=== PATIENT | female | born 1995 | race Caucasian/White ===

== ENCOUNTER 2020-06-17 22:38 | Emergency (ER) | payer SELFPAY ==
--- NOTE | ~2020-06-17 | XR_ITS ---
EXAMINATION: XR chest 2V DATE: 06/17/2020 23:34 INDICATION: Hemoptysis. Left upper chest pain with cough. TECHNIQUE: PA and lateral views of the chest were obtained. COMPARISON: Chest radiograph dated 04/18/2015 FINDINGS: The lungs remain clear with no focal airspace opacities, pulmonary edema, pleural effusion or pneumot horax. The cardiomediastinal silhouette is normal. Visualized bones and soft tissues are unremarkable . IMPRESSION: 1. Normal chest radiograph. Reviewed, dictated and finalized at location A. IMPRESSION: 1. Normal chest radiograph.
[2020-06-17 23:00] VITALS: BP 146/73; PULSE 79; RESP 18; TEMP 37.1; O2SAT 98
--- NOTE | 2020-06-17 23:01 | ED.GENADULT ---
HPI - General Adult General Chief complaint: Upper Respiratory Infection Stated complaint: coughing up blood Source: patient Mode of arrival: ambulatory Limitations: no limitations History of Present Illness HPI narrative: Manuela is a 24F with a history of multiple episodes of costochondritis presented to the ED with hemoptysis. She had had diarrhea for a week (unknown if there was any blood) but today she started coughing. On several episodes she coughed up some blood (only a few cc when she was asked to quantify it). She reports that she feels like she is coughing something out of her throat rather than from deep in her lungs. She also admits a backache but no fevers, diffuse body aches, CP or dyspnea. She does report that she has been around a friend that has been living with 2 individuals that tested positive for COVID. No personal or family history of bleeding disorders. Related Data Home Medications Medication Instructions Recorded Confirmed No Home Medications 06/17/20 06/17/20 Allergies Allergy/AdvReac Type Severity Reaction Status Date / Time fluconazole Allergy Unknown Unknown Verified 06/18/20 00:00 Review of Systems Constitutional: Constitutional: Reports as per HPI, Denies chills and Denies fever(s) Eyes: Eyes: Reports no additional eye complaints ENT: Reports system reviewed and no additional complaints, except as documented Cardiovascular: Cardiovascular: Reports no additional cardiovascular complaints Respiratory: Respiratory: Reports as per HPI Gastrointestinal: Gastrointestinal: Reports as per HPI Genitourinary: Genitourinary: Reports no additional female genitourinary complaints Musculoskeletal: Musculoskeletal: Reports no additional musculoskeletal complaints Integumentary/Breasts: Skin/Breast: Reports system reviewed and no additional complaints, except as docu Neurologic: Reports system reviewed and no additional complaints, except as documented Psychiatric: Psychiatric: Reports no additional psychiatric complaints Endocrine: Endocrine: Reports no additional endocrine complaints Hematologic/Lymphatic: Hematologic/Lymphatic: Reports as per HPI Allergic/Immunologic: Allergic/Immunologic: Reports no additional allergic/immunologic complaints [facility] Social History Social History Alcohol intake: current Exam Const: General: no acute distress and alert Orientation/consciousness: patient oriented x3 Limitations: No altered mental status HENMT: Head: normal to inspection Other: normocephalic, atraumatic, moist oropharynx, no visible mouth lesions Eyes: Conjunctivae: conjunctivae normal Pupils: Equal, round and reactive pupils present Neck: Neck: normal visual inspection Resp: Effort & Inspection: normal respiratory effort Auscultation: clear to auscultation bilaterally Cardio: Rate: regular rate Rhythm: regular rhythm GI: GI Palp: Yes Soft to palpation and No Tenderness to palpation present (GI) Skin: General skin exam: normal color Rashes: no rashes Neuro: General: patient oriented x3 and moves all extremities Extrem: General: normal to inspection Psych: Mental Status: mental status grossly normal Course Course Emergency Course: Manuela was evaluated. No coughing present on exam. Orders CXR and labs. Labs were largely unremarkable. COVID is pending at the time of discharge. EXAMINATION: XR chest 2V DATE: 06/17/2020 23:34 INDICATION: Hemoptysis. Left upper chest pain with cough. TECHNIQUE: PA and lateral views of the chest were obtained. COMPARISON: Chest radiograph dated 04/18/2015 FINDINGS: The lungs remain clear with no focal airspace opacities, pulmonary edema, pleural effusion or pneumothorax. The cardiomediastinal silhouette is normal. Visualized bones and soft tissues are unremarkable. IMPRESSION: 1. Normal chest radiograph. Vital Signs Vital signs: Vital Signs Temperature 98.7 F 06/17/20 23
[2020-06-17 23:07] VITALS: O2SAT 98
[2020-06-17 23:17] LABS: Basophils Absolute Auto 0.06 K/mm3 (0.00-0.10); Basophils Percent Auto 0.7 % (0.0-1.0); Eosinophils Absolute Auto 0.08 K/mm3 (0.02-0.50); Hematocrit 39.2 % (35.0-49.0); Hemoglobin 12.8 g/dL (12.0-15.0); Immature Granulocyte Absolute 0.03 K/mm3 (0.00-0.00); Immature Granulocyte Percent A 0.4 % (0.0-0.0); Lymphocytes Absolute Auto 2.31 K/mm3 (1.10-4.50); Lymphocytes Percent Auto 28.5 % (18.0-42.0); Mean Corpuscular HGB Conc 32.7 g/dL (32.0-36.0); Mean Corpuscular Volume 91.8 fL (78.0-102.0); Mean Platelet Volume 9.1 fl (9.2-11.8); Monocytes Percent Auto 7.4 % (2.0-11.0); Platelet Count Result 346 K/mm3 (150-420); Red Blood Count 4.27 M/mm3 (4.20-5.40); Red Cell Distribution Width 12.2 % (11.6-14.4); White Blood Count 8.1 K/mm3 (4.8-10.8)
[2020-06-17 23:21] LABS: Pregnancy On Board Control Positive; Urine Pregnancy Test Negative
[2020-06-17 23:30] LABS: INR 1.1; Prothrombin Time 11.4 Seconds (9.64-11.0)
[2020-06-17 23:34] LABS: Alanine Aminotransferase 19 U/L (14-59); Albumin Level 4.2 g/dL (3.4-5.0); Alkaline Phosphatase 105 U/L (46-116); Anion Gap 12 mmol/L (8-16); Aspartate Amino Transferase < 10 U/L (15-37); Bilirubin,Total 0.4 mg/dL (0.00-1.00); Blood Urea Nitrogen 8 mg/dL (7-18); Calcium 8.7 mg/dL (8.5-10.1); Carbon Dioxide 24 mmol/L (21-32); Chloride 106 mmol/L (98-108); Estimated CRCL calculation 134 ml/min; Estimated Glomerular Filt Rate > 60; Glucose 103 mg/dL (70-99); Osmolality Calculated 292 mOsm/kg (285-295); Potassium 3.6 mmol/L (3.5-5.1); Sodium 142 mmol/L (136-145); Total Protein 7.5 g/dL (6.4-8.2)
[2020-06-18 00:03] VITALS: BP 130/68; PULSE 85; RESP 18; O2SAT 100
[2020-06-19 01:35] LABS: SARS-CoV-2 RNA PCR Negative
== END 2020-06-18 00:07 | disposition home or self-care (01) ==
PROVIDERS: Emergency Provider Family Medicine; PCP Family Medicine
DX: R04.2 Hemoptysis (principal); Z20.828 Contact with and (suspected) exposure to other viral communicable diseases
CPT/HCPCS: 36415; 71046; 80053; 81025; 85025; 85610; 87635; 99282; 99283; C9803; U0003

== ENCOUNTER 2020-12-10 17:28 | Emergency (ER) | payer SELFPAY ==
--- NOTE | ~2020-12-10 | CT_ITS ---
EXAMINATION: CT abdomen pelvis wo con EXAM DATE: 12/10/2020 18:20 INDICATION: abd pain/ history of kidney stone right flank pain, dysuria x yesterday. TECHNIQUE: Spiral CT of the abdomen and pelvis was performed without contrast. Axial, coronal and sag ittal images were reviewed. The dose-length product (DLP) for this examination was 315.63 mGy-cm. T he exposure was tailored according to patient size (auto mA exposure control), and iterative reconstr uction (ASIR) was used as additional dose reduction technique. There is no prior study for compariso n. FINDINGS: There is no nephrolithiasis or hydronephrosis. The uterus is retroverted and morphologica lly normal. The bladder is unremarkable. The liver, spleen, adrenal glands and pancreas are unrema rkable. Gallbladder is unremarkable. No biliary obstruction. There is no retroperitoneal or pelvic lymphadenopathy. The appendix is normal. The stomach and small bowel are unremarkable. There is moderate to large am ount of right hemicolonic colonic stool and gas, smaller amount in the remainder of the colon.. No free intraperitoneal gas. The heart is normal in size. There are no pericardial or pleural effusio ns. The lung bases are unremarkable. There are no osteoblastic or osteolytic lesions identified. IMPRESSION: 1. No nephrolithiasis, hydronephrosis or acute intra-abdominal findings. 2. There is moderate to large amount of right hemicolonic colonic stool and gas. Constipation? Reviewed, dictated and finalized at location A. IMPRESSION: 1. No nephrolithiasis, hydronephrosis or acute intra-abdominal findings. 2. There is moderate to large amount of right hemicolonic colonic stool and ga s. Constipation?
[2020-12-10 17:53] VITALS: BP 146/75; PULSE 91; RESP 20; TEMP 37.1; O2SAT 97
[2020-12-10 18:03] LABS: Basophils Absolute Auto 0.04 K/mm3 (0.00-0.10); Basophils Percent Auto 0.6 % (0.0-1.0); Eosinophils Absolute Auto 0.05 K/mm3 (0.02-0.50); Eosinophils Percent Auto 0.7 % (1.0-6.0); Hematocrit 36.3 % (35.0-49.0); Hemoglobin 11.8 g/dL (12.0-15.0); Immature Granulocyte Absolute 0.03 K/mm3 (0.00-0.00); Immature Granulocyte Percent A 0.4 % (0.0-0.0); Lymphocytes Absolute Auto 1.71 K/mm3 (1.10-4.50); Lymphocytes Percent Auto 24.3 % (18.0-42.0); Mean Corpuscular HGB Conc 32.5 g/dL (32.0-36.0); Mean Corpuscular Volume 92.4 fL (78.0-102.0); Mean Platelet Volume 9.5 fl (9.2-11.8); Monocytes Absolute Auto 0.67 K/mm3 (0.10-0.90); Monocytes Percent Auto 9.5 % (2.0-11.0); Neutrophils Absolute Auto 4.5 K/mm3 (1.7-7.2); Neutrophils Percent Auto 64.5 % (50.0-70.0); Platelet Count Result 266 K/mm3 (150-420); Red Blood Count 3.93 M/mm3 (4.20-5.40); Red Cell Distribution Width 12.2 % (11.6-14.4)
[2020-12-10 18:04] LABS: Add Urine Microscopic? YES; Appearance Urine Sl Cloudy (Clear); Bilirubin Urine Negative (Negative); Blood Urine 3+ (Negative); Color Urine Yellow (Yellow); Glucose Urine UA Negative (Negative); Ketones Urine Negative (Negative); Leukocyte Esterase Ur 2+ LEU/UL (Negative); Nitrate Urine Positive (Negative); Protein Urine 1+ (Negative); Urobilinogen Urine 0.2 mg/dL (0.2-1.0); pH Urine 7.5 (5.0-8.0)
[2020-12-10 18:06] LABS: Pregnancy On Board Control Positive; Urine Pregnancy Test Negative
[2020-12-10 18:10] LABS: Bacteria Urine 2+ /hpf; Squamous Epithelial Cell Urine Few /hpf (Few); WBC Urine 21-30 /hpf (0-3)
[2020-12-10] MEDS: KETOROLAC 30 MG/ML VIAL (*BKC) IV PUSH (18:10)
[2020-12-10] MEDS: SODIUM CHLORIDE 0.9% IV 1,000 ML 999 ML IV CONT (18:10)
[2020-12-10] MEDS: ONDANSETRON INJ 4 MG/2 ML VIAL IV PUSH (18:10)
[2020-12-10 18:21] LABS: Alanine Aminotransferase 23 U/L (14-59); Albumin Level 3.8 g/dL (3.4-5.0); Alkaline Phosphatase 83 U/L (46-116); Anion Gap 10 mmol/L (8-16); Aspartate Amino Transferase 21 U/L (15-37); Bilirubin,Total 0.3 mg/dL (0.00-1.00); Blood Urea Nitrogen 13 mg/dL (7-18); Calcium 8.3 mg/dL (8.5-10.1); Carbon Dioxide 25 mmol/L (21-32); Chloride 104 mmol/L (98-108); Estimated CRCL calculation 133 ml/min; Estimated Glomerular Filt Rate > 60; Glucose 89 mg/dL (70-99); Lipase 736 U/L (73-393); Osmolality Calculated 287 mOsm/kg (285-295); Potassium 3.8 mmol/L (3.5-5.1); Sodium 139 mmol/L (136-145); Troponin I 7.4 ng/L (0.00-60.4)
[2020-12-10 18:23] LABS: Lactic Acid Reflex 0.7 mmol/L (0.4-2.0)
--- NOTE | 2020-12-10 18:51 | ED.GENADULT ---
HPI - General Adult General Chief complaint: Abdominal Pain Stated complaint: lower abd pain traveling to side Source: patient Mode of arrival: ambulatory Limitations: no limitations History of Present Illness HPI narrative: this is a 25-year-old female that presents with some abdominal pain mainly suprapubic but has been having some right upper quadrant pain discomfort, with nausea and vomiting has been going on for last couple of days but has worsened over the last couple of hours denies any diarrhea constipation no fever chills no chest pain no shortness of breath. Patient states that she is a social drinker no tobacco history and has had history of kidney stones in the past. Onset (ago): day(s) Location: abdomen Radiation: non-radiation Severity: moderate Severity scale (1-10): 6 Quality: aching Pain Consistency: intermittent Relieving factors: none Exacerbating factors: none Associated symptoms: nausea/vomiting Related Data Allergies Allergy/AdvReac Type Severity Reaction Status Date / Time fluconazole Allergy Unknown Unknown Verified 06/18/20 00:00 Review of Systems Review of Systems: All systems reviewed & are unremarkable except as noted in HPI and below PMFSH Past Medical History Medical History Nephrolithiasis Social History Social History Alcohol intake: current Gender identity (if verbalized by the patient): Female Exam Const: General: no acute distress Orientation/consciousness: patient oriented x3 HENMT: Head: normal to inspection and contusion Eyes: Conjunctivae: conjunctivae normal Pupils: Equal, round and reactive pupils present Direct Ophthalmoscopy: no photophobia Neck: Neck: normal visual inspection, no lymphadenopathy and no meningeal signs Chest: Chest palpation & inspection: normal inspection of the chest Cardio: Rate: regular rate Rhythm: regular rhythm GI: GI Palp: Yes Soft to palpation and Yes Tenderness to palpation present (GI) ( suprapubic and right upper quadrant) : General: Yes CVA tenderness Back/Spine/Pelvis: Back: CVA tenderness Skin: General skin exam: normal color Rashes: no rashes Extrem: General: normal to inspection and no pedal edema Psych: Mental Status: mental status grossly normal Affect: normal affect Course Course Emergency Course: patient received IV fluids, Zofran and Toradol which did improved her pain level. Reviewed CT scan and blood work with patient and lab work and UA was reviewed with patient that showed a urinary tract infection and she received a g of Rocephin and antibiotic sent to her pharmacy. Vital Signs Vital signs: Vital Signs Temperature 37.1 C 12/10/20 17:53 Pulse Rate 91 12/10/20 17:53 Respiratory Rate 20 12/10/20 17:53 Blood Pressure 146/75 H 12/10/20 17:53 Pulse Oximetry 97 12/10/20 17:53 Temperature 37.1 C 12/10/20 17:53 Pulse Rate 91 12/10/20 17:53 Respiratory Rate 20 12/10/20 17:53 Blood Pressure 146/75 H 12/10/20 17:53 Pulse Oximetry 97 12/10/20 17:53 Medical Decision Making Vital Signs Vital Signs: Vital Signs Temperature 37.1 C 12/10/20 17:53 Pulse Rate 91 12/10/20 17:53 Respiratory Rate 20 12/10/20 17:53 Blood Pressure 146/75 H 12/10/20 17:53 Pulse Oximetry 97 12/10/20 17:53 Temperature 37.1 C 12/10/20 17:53 Pulse Rate 91 12/10/20 17:53 Respiratory Rate 20 12/10/20 17:53 Blood Pressure 146/75 H 12/10/20 17:53 Pulse Oximetry 97 12/10/20 17:53 Lab Data Result diagrams: 12/10/20 17:57 12/10/20 17:57 Labs: Lab Results 12/10/20 12/10/20 12/10/20 Range/Units 17:57 17:57 17:57 WBC 7.0 (4.8-10.8) K/mm3 RBC 3.93 L (4.20-5.40) M/mm3 Hgb 11.8 L (12.0-15.0) g/dL Hct 36.3 (35.0-49.0) % MCV 92.4 (78.0-102.0) fL MCH 30.0 (27.0-31.0) pg MCHC 32.5 (32.0-36.0)
[2020-12-10 19:25] VITALS: BP 131/71; PULSE 82; RESP 20; TEMP 36.7; O2SAT 98
== END 2020-12-10 19:25 | disposition home or self-care (01) ==
PROVIDERS: Emergency Provider Emergency Medicine; PCP Family Medicine
DX: R79.9 Abnormal finding of blood chemistry, unspecified (principal)
CPT/HCPCS: 36415; 74176; 80053; 81001; 81025; 83605; 83690; 84484; 85025; 87077; 87086; 87088; 87186; 96361; 96365; 96375; 99283; 99284; J0696; J1885; J2405; J7030

== ENCOUNTER 2021-03-24 19:08 | Emergency (ER) | payer MEDICAID, SELFPAY ==
--- NOTE | 2021-03-24 19:23 | ED.HA ---
HPI - Headache General Chief Complaint: Headache Stated Complaint: migraine Time Seen by Provider: 03/24/21 19:23 Source: patient Mode of arrival: ambulatory Limitations: no limitations History of Present Illness HPI Narrative: 25-year-old woman with a history of migraines comes in today complaining of headache that has been present for last 4 days. She has had nausea and vomiting with it. Headache is unilateral throbbing and typical for her migraines. She has had no recent illness, fever, head injury, focal weakness, visual changes or syncope. She states that she is 4-6 weeks . MD elicited complaint: migraine Pertinent past history: migraines Onset (ago): day(s) (4) Onset description: gradually Location: left and parietal Severity: severe Quality & Timing: throbbing Context: occurred at rest Associated symptoms: nausea and vomiting Related Data Allergies Allergy/AdvReac Type Severity Reaction Status Date / Time fluconazole Allergy Unknown Unknown Verified 06/18/20 00:00 Review of Systems Review of Systems: All systems reviewed & are unremarkable except as noted in HPI and below Constitutional: Constitutional: Denies chills and Denies fever(s) Eyes: Eyes: Denies change in vision and Reports photophobia ENT: Denies nasal congestion and Denies sore throat Cardiovascular: Cardiovascular: Denies chest pain Respiratory: Respiratory: Denies cough and Denies dyspnea Gastrointestinal: Gastrointestinal: Denies abdominal pain, Reports nausea and Reports vomiting Musculoskeletal: Musculoskeletal: Denies back pain, Denies arthralgias and Denies joint swelling Integumentary/Breasts: Skin/Breast: Denies pruritus, Denies erythema and Denies rash Neurologic: Reports as per HPI, Denies confusion, Denies vertigo, Denies dizziness, Denies syncope, Denies focal weakness and Denies numbness Hematologic/Lymphatic: Hematologic/Lymphatic: Denies easy bleeding and Denies easy bruising Allergic/Immunologic: Allergic/Immunologic: Denies lip swelling and Denies wheezing PMFSH Past Medical History Medical History Nephrolithiasis Social History Social History Alcohol intake: current Gender identity (if verbalized by the patient): Female Exam Const: General: healthy appearing and alert Orientation/consciousness: patient oriented x3 Limitations: no limitations Other: moderate acute distress. HENMT: Head: normal to inspection Ears: external ears normal, TM's normal bilaterally and EAC's normal General nose exam: Normal nares present Face and sinus: normal facial exam Mouth: Yes moist mucous membranes abnormal Throat: posterior oropharynx normal Eyes: Conjunctivae: conjunctivae normal Pupils: Equal, round and reactive pupils present EOM: EOMs intact bilaterally Resp: Effort & Inspection: normal respiratory effort and not labored Auscultation: clear to auscultation bilaterally, no rales, no rhonchi and no wheezes Cardio: Rate: regular rate Rhythm: regular rhythm Heart sounds: no murmurs Skin: General skin exam: normal color, no jaundice and no pallor Rashes: no rashes Neuro: General: patient oriented x3, moves all extremities, no focal motor deficits and CN's II-XI intact bilaterally Cranial nerves: Yes Nystagmus not present Speech: normal speech Gait exam (Neuro): Normal gait present Other: Normal finger to nose bilaterally. DTRs in the lower extremities 2+ and symmetric. Extrem: General: normal to inspection and no clubbing, cyanosis or edema Psych: Appearance: grossly normal and well kempt Mental Status: mental status grossly normal Affect: normal affect Attitude: cooperative Thought content: Yes Normal thought content present Course Vital Signs Vital signs: Vital Signs Temperature 36.6 C 03/24/21 19:24 Pulse Rate 80 03/24/21 19:24 Respiratory Rate 16 03/24/21 19:24
[2021-03-24 19:24] VITALS: BP 140/80; PULSE 80; RESP 16; TEMP 36.6; O2SAT 98
[2021-03-24] MEDS: ACETAMINOPHEN 500 MG TABLET 1000 MG PO (19:47)
[2021-03-24] MEDS: PROMETHAZINE HCL 25 MG/ML AMPUL IM (19:48)
[2021-03-24 19:53] VITALS: BP 132/70; PULSE 78; RESP 18; TEMP 36.6; O2SAT 98
== END 2021-03-24 19:54 | disposition home or self-care (01) ==
PROVIDERS: Emergency Provider Emergency Medicine; PCP Family Medicine
DX: G43.909 Migraine, unspecified, not intractable, without status migrainosus (principal)
CPT/HCPCS: 96372; 99283; J2550

== ENCOUNTER 2021-04-08 23:15 | Emergency (ER) | payer MEDICAID, SELFPAY ==
[2021-04-08 23:38] VITALS: BP 135/72; PULSE 89; RESP 20; TEMP 36.6; O2SAT 98
[2021-04-08] MEDS: ACETAMINOPHEN 325 MG TABLET 650 MG PO (23:55)
[2021-04-08] MEDS: ONDANSETRON INJ 4 MG/2 ML VIAL IV PUSH (23:59)
[2021-04-08] MEDS: SODIUM CHLORIDE 0.9% IV 1,000 ML 150 ML IV CONT (23:59)
[2021-04-09] LABS: Basophils Absolute Auto 0.04 K/mm3 (0.00-0.10); Basophils Percent Auto 0.4 % (0.0-1.0); Eosinophils Absolute Auto 0.06 K/mm3 (0.02-0.50); Eosinophils Percent Auto 0.6 % (1.0-6.0); Hemoglobin 11.7 g/dL (12.0-15.0); Immature Granulocyte Absolute 0.04 K/mm3 (0.00-0.00); Immature Granulocyte Percent A 0.4 % (0.0-0.0); Lymphocytes Absolute Auto 2.06 K/mm3 (1.10-4.50); Mean Corpuscular HGB Conc 33.4 g/dL (32.0-36.0); Mean Corpuscular Hemoglobin 29.7 pg (27.0-31.0); Mean Corpuscular Volume 88.8 fL (78.0-102.0); Mean Platelet Volume 9.6 fl (9.2-11.8); Monocytes Absolute Auto 0.78 K/mm3 (0.10-0.90); Monocytes Percent Auto 7.6 % (2.0-11.0); Neutrophils Absolute Auto 7.3 K/mm3 (1.7-7.2); Platelet Count Result 248 K/mm3 (150-420); Red Blood Count 3.94 M/mm3 (4.20-5.40); Red Cell Distribution Width 12.1 % (11.6-14.4); White Blood Count 10.3 K/mm3 (4.8-10.8)
--- NOTE | 2021-04-09 00:34 | PC.NURSE ---
Pt is to see Dr Luque for OB appnt. next week. Call placed to [facility], spoke to house supv. Roy about possible U/S. States they only do emergency U/S for r/o ectopic. ERP informed. Will observe and await lab values. Per Sam advice, will have to call for f/u c her OB tomorrow morning.
[2021-04-09 00:36] LABS: Alanine Aminotransferase 23 U/L (14-59); Albumin Level 3.5 g/dL (3.4-5.0); Alkaline Phosphatase 79 U/L (46-116); Anion Gap 13 mmol/L (8-16); Aspartate Amino Transferase < 10 U/L (15-37); Bilirubin,Total 0.2 mg/dL (0.00-1.00); Blood Urea Nitrogen 9 mg/dL (7-18); Calcium 8.6 mg/dL (8.5-10.1); Carbon Dioxide 23 mmol/L (21-32); Chloride 106 mmol/L (98-108); Estimated CRCL calculation 166 ml/min; Estimated Glomerular Filt Rate > 60; Glucose 110 mg/dL (70-99); Osmolality Calculated 293 mOsm/kg (285-295); Potassium 3.7 mmol/L (3.5-5.1); Sodium 142 mmol/L (136-145); Total Protein 6.4 g/dL (6.4-8.2)
--- NOTE | 2021-04-09 00:40 | ED.PREGNANCY ---
HPI - General Chief complaint: Vaginal Bleeding Stated complaint: Vaginal Bleeding Time Seen by Provider: 04/08/21 23:41 Source: patient, family and RN notes reviewed Mode of arrival: ambulatory Limitations: no limitations History of Present Illness HPI Narrative: Sudden vaginal bleed x this PM, pt is 9 mos and has had an U/S which demonstrated an IUP. Complaint: vaginal bleeding and contractions Onset (ago): hour(s) (2) Pain Consistency: intermittent Location: pelvis Severity scale (1-10): 3 Quality: Cramping Relieving factors: none Exacerbating factors: none Associated symptoms: nausea and vaginal bleeding Vaginal bleeding: light Patient : Yes Number of Weeks : 9 care: previous ultrasound confirms IUP Related Data Allergies Allergy/AdvReac Type Severity Reaction Status Date / Time fluconazole Allergy Unknown Unknown Verified 06/18/20 00:00 Review of Systems Review of Systems: All systems reviewed & are unremarkable except as noted in HPI and below Constitutional: Constitutional: Reports as per HPI and Reports no additional constitutional complaints Eyes: Eyes: Reports as per HPI and Reports no additional eye complaints ENT: Reports system reviewed and no additional complaints, except as documented and Reports as per HPI Cardiovascular: Cardiovascular: Reports as per HPI and Reports no additional cardiovascular complaints Respiratory: Respiratory: Reports as per HPI and Reports no additional respiratory complaints Gastrointestinal: Gastrointestinal: Reports as per HPI and Reports no additional gastrointestinal complaints Genitourinary: Genitourinary: Reports no additional female genitourinary complaints and Reports as per HPI Musculoskeletal: Musculoskeletal: Reports no additional musculoskeletal complaints and Reports as per HPI Integumentary/Breasts: Skin/Breast: Reports system reviewed and no additional complaints, except as docu and Reports as per HPI Neurologic: Reports system reviewed and no additional complaints, except as documented and Reports as per HPI Psychiatric: Psychiatric: Reports no additional psychiatric complaints and Reports as per HPI Endocrine: Endocrine: Reports no additional endocrine complaints and Reports as per HPI Hematologic/Lymphatic: Hematologic/Lymphatic: Reports no additional hematologic/lymphatic complaints and Reports as per HPI Allergic/Immunologic: Allergic/Immunologic: Reports no additional allergic/immunologic complaints and Reports as per HPI PMF Past Medical History Medical History Nephrolithiasis Social History Social History Alcohol intake: current Gender identity (if verbalized by the patient): Female Exam Const: General: no acute distress and alert Nutritional Appearance: well nourished Orientation/consciousness: patient oriented x3 Limitations: no limitations HENMT: Head: normal to inspection Ears: external ears normal and TM's normal bilaterally General nose exam: Normal external nose present and Normal nares present Face and sinus: normal facial exam Mouth: Yes lip normal Teeth and gingiva: dentition normal Throat: posterior oropharynx normal Eyes: Conjunctivae: conjunctivae normal Pupils: Equal, round and reactive pupils present EOM: EOMs intact bilaterally Neck: Neck: normal visual inspection and no lymphadenopathy Chest: Chest palpation & inspection: normal inspection of the chest Resp: Effort & Inspection: normal respiratory effort Auscultation: clear to auscultation bilaterally Cardio: Rate: regular rate Rhythm: regular rhythm GI: GI Palp: Yes Soft to palpation Percussion: Yes other (gravid uterus at 9 weeks approx.) : General: Yes no CVA tenderness Back/Spine/Pelvis: Back: no CVA tenderness Skin: General skin exam: normal color Rashes: no rashes Neuro
--- NOTE | 2021-04-09 01:03 | PC.NURSE ---
Call placed to [facility] outreach center for consult c ERP Dr Cisneros. Will await callback from reed ORTIZ.
--- NOTE | 2021-04-09 01:10 | PC.NURSE ---
Call back from [place] [employer] Dr. TORRES spoke c and recommends same advise to call for f/u c her [employer] at [place] tomorrow.
[2021-04-09 01:28] LABS: Appearance Urine Clear (Clear); Bilirubin Urine Negative (Negative); Color Urine Yellow (Yellow); Glucose Urine UA Negative (Negative); Ketones Urine Negative (Negative); Leukocyte Esterase Ur Negative (Negative); Nitrate Urine Negative (Negative); Protein Urine Negative (Negative); Specific Grav Ur >= 1.030 (1.010-1.020); Urobilinogen Urine 0.2 mg/dL (0.2-1.0); pH Urine 5.5 (5.0-8.0)
[2021-04-09 01:39] LABS: Add Urine Microscopic? YES; Bacteria Urine 2+ /hpf; Blood Urine Trace-Intact (Negative); Squamous Epithelial Cell Urine Few /hpf (Few); WBC Urine 0-3 /hpf (0-3)
--- NOTE | 2021-04-09 02:08 | PC.NURSE ---
HIV testing explained and offered, pt refused, refusal signed.
[2021-04-09 02:19] VITALS: BP 133/62; PULSE 87; RESP 20; TEMP 36.4; O2SAT 99
== END 2021-04-09 02:21 | disposition home or self-care (01) ==
PROVIDERS: Emergency Provider Emergency Medicine; PCP Family Medicine
DX: O20.0 Threatened abortion (principal); N39.0 Urinary tract infection, site not specified
CPT/HCPCS: 36415; 80053; 81001; 84702; 85025; 86900; 86901; 96361; 96365; 96374; 99283; 99284; A9270; J0696; J2405; J7030

== ENCOUNTER → 2021-04-27 16:01 | Outpatient (CLI) | payer OTHER, SELFPAY ==
--- NOTE | ~2021-04-27 | US_ITS ---
EXAMINATION: US OB transvaginal DATE: 04/27/2021 16:50 INDICATION: Vaginal spotting during first trimester . TECHNIQUE: Real-time pelvic ultrasound utilizing transvaginal probe was performed. The interpreting r adiologist was not present for the study. COMPARISON: None. FINDINGS: The uterus measures 8.2 x 6.8 x 7.7 cm. There is an intrauterine gestational sac. A yolk sac and fet al pole are identified. The crown rump length measures 4.4 cm, which correlates with an estimated ges tational age of 11 weeks and 1 days. heart motion is identified measuring 169 beats per minute (bpm) by M-mode Doppler. The lateral ovaries are not visualized. There is no free fluid in the pelvis. IMPRESSION: 1. Single living fetus with heart of 169 bpm. 2. Gestational age by ultrasound of 11 weeks 1 day(s) +/- abdomen day(s) with ultrasound estimated d ate of delivery (ARIA) of 11/15/2021. Reviewed, dictated and finalized at location A. IMPRESSION: 1. Single living fetus with heart of 169 bpm. 2. Gestational age by ultrasound of 11 weeks 1 day(s) +/- abdomen day(s) with ultrasound estimated date of delivery (ARIA) of 11/15/2021.
== END ==
PROVIDERS: Visit Provider Nurse Practitioner
DX: O26.851 Spotting complicating pregnancy, first trimester (principal); Z3A.11 11 weeks gestation of pregnancy
CPT/HCPCS: 76817

== ENCOUNTER 2021-06-02 09:39 | Emergency (ER) | payer OTHER, SELFPAY ==
[2021-06-02 09:45] VITALS: BP 131/71; PULSE 101; RESP 20; TEMP 36.2; O2SAT 98
--- NOTE | 2021-06-02 10:27 | ED.HA ---
HPI - Headache General Chief Complaint: Headache Stated Complaint: migraine for 4 days/ Related Data Allergies Allergy/AdvReac Type Severity Reaction Status Date / Time fluconazole Allergy Unknown Unknown Verified 06/18/20 00:00 [facility] Past Medical History Medical History Nephrolithiasis Social History Social History Alcohol intake: current Gender identity (if verbalized by the patient): Female Course Vital Signs Vital signs: Vital Signs Temperature 36.2 C L 06/02/21 09:45 Pulse Rate 101 H 06/02/21 09:45 Respiratory Rate 20 06/02/21 09:45 Blood Pressure 131/71 06/02/21 09:45 Pulse Oximetry 98 06/02/21 09:45 Temperature 36.2 C L 06/02/21 10:53 Pulse Rate 83 06/02/21 10:53 Respiratory Rate 20 06/02/21 10:53 Blood Pressure 126/66 06/02/21 10:53 Pulse Oximetry 98 06/02/21 10:53 Discharge Plan Discharge Clinical Impression: Head ache, Normal in first trimester Patient Disposition: Home, Self-Care Condition: Stable Instructions: Antibiotic Form Additional Instructions: Home. May RTC prn. PMD in 1-2 days. Tyenol Rx. Discuss analgesia with OB MD. Prescriptions: No Action ondansetron HCl [Zofran] 4 mg tablet 4 mg PO Q8H MDD Sig as a dose-keaton. Qty: 21 RF: 0 Follow-up/Referrals: Mati Vaughn MD [Primary Care Provider] - Stand Alone Forms: Work/School Release IP Time of Disposition: 10:35
[2021-06-02] MEDS: MORPHINE SULFATE (*CRX) 4 MG/ML INJ IM (10:28)
[2021-06-02] MEDS: ONDANSETRON HCL ODT 4 MG TABLET PO (10:39)
[2021-06-02 10:53] VITALS: BP 126/66; PULSE 83; RESP 20; TEMP 36.2; O2SAT 98
== END 2021-06-02 11:08 | disposition home or self-care (01) ==
PROVIDERS: Emergency Provider Emergency Medicine; PCP Family Medicine
DX: R51.9 Headache, unspecified (principal); Z33.1 Pregnant state, incidental
CPT/HCPCS: 96372; 99283; A9270; J2270

== ENCOUNTER 2021-06-07 15:39 | Outpatient (CLI) | payer OTHER, SELFPAY ==
[2021-06-07 16:26] LABS: Basophils Absolute Auto 0.04 K/mm3 (0.00-0.10); Basophils Percent Auto 0.3 % (0.0-1.0); Eosinophils Absolute Auto 0.05 K/mm3 (0.02-0.50); Eosinophils Percent Auto 0.4 % (1.0-6.0); Hematocrit 36.3 % (35.0-49.0); Hemoglobin 12.4 g/dL (12.0-15.0); Immature Granulocyte Percent A 0.8 % (0.0-0.0); Lymphocytes Absolute Auto 1.78 K/mm3 (1.10-4.50); Lymphocytes Percent Auto 14.4 % (18.0-42.0); Mean Corpuscular HGB Conc 34.2 g/dL (32.0-36.0); Mean Corpuscular Hemoglobin 30.7 pg (27.0-31.0); Mean Corpuscular Volume 89.9 fL (78.0-102.0); Mean Platelet Volume 9.7 fl (9.2-11.8); Monocytes Absolute Auto 0.78 K/mm3 (0.10-0.90); Monocytes Percent Auto 6.3 % (2.0-11.0); Neutrophils Absolute Auto 9.6 K/mm3 (1.7-7.2); Neutrophils Percent Auto 77.8 % (50.0-70.0); Platelet Count Result 274 K/mm3 (150-420); Red Blood Count 4.04 M/mm3 (4.20-5.40); Red Cell Distribution Width 12.3 % (11.6-14.4); White Blood Count 12.3 K/mm3 (4.8-10.8)
[2021-06-07 16:39] LABS: Hemoglobin A1C 4.8 % (<5.7)
[2021-06-07 17:35] LABS: HIV 1 P24 AG Negative (Negative); HIV 1/2 AB Negative (Negative)
[2021-06-10 13:56] LABS: Vitamin D 25 Hydroxy 29 ng/mL (30-100)
[2021-06-10 16:59] LABS: Rubella IgG Antibody 9.36 Index
[2021-06-10 20:10] LABS: RPR Screen Non-Reactive (Non-Reactive)
[2021-06-11 19:45] LABS: Hepatitis B Surface Antigen Nonreactive (Nonreactive); Hepatitis C Signal to Cutoff 0.03 ratio (<1.00); Hepatitis C Virus Antibody Nonreactive (Nonreactive)
== END 2021-06-07 15:40 | disposition home or self-care (01) ==
LOC: CHSLAB 15:41
PROVIDERS: PCP Family Medicine; Visit Provider Obstetrics & Gynecology Gynecology
DX: Z36.9 Encounter for antenatal screening, unspecified (principal)
CPT/HCPCS: 36415; 82306; 83036; 85025; 86592; 86703; 86762; 86850; 86900; 86901

== ENCOUNTER 2021-06-21 07:01 | Emergency (ER) | payer OTHER, SELFPAY ==
[2021-06-21] VITALS (16 sets, daily range): BP systolic 108–139; BP diastolic 47–106; PULSE 60–92; RESP 12–18; TEMP 36.5; O2SAT 98–100
--- NOTE | ~2021-06-21 | MR_ITS ---
EXAMINATION: MR abdomen wo con DATE: 06/21/2021 13:11 INDICATION: Right lower quadrant abdominal pain. TECHNIQUE: Magnetic resonance imaging (MRI) of the abdomen was performed without intravenous contrast . Sequences included coronal T2-weighted FS FSE, coronal and axial FS FIESTA, coronal and axial T2-we ighted FSE, axial LAVA-flex, axial STIR FSE, axial DWI, axial dual-echo T1-weighted FSPGR, and sagitt al T2-weighted FS fiesta and T2-weighted FS FSE. COMPARISON: CT abdomen and pelvis 12/10/2020 FINDINGS: The liver, gallbladder, spleen, pancreas, adrenal glands, and kidneys are normal. There are no dilate d loops of bowel. The appendix is normal. There are no pathologically enlarged lymph nodes. There is physiologic fluid in the pelvis. There is an intrauterine gestation in vertex presentation. The place nta is anterior. There are small hematomas at the right and left margins of the placenta. IMPRESSION: 1. Normal appendix. 2. Small hematomas at the right and left margins of the placenta. Reviewed, dictated and finalized at location A.
--- NOTE | ~2021-06-21 | US_ITS ---
EXAMINATION: US OB limited DATE: 06/21/2021 09:52 INDICATION: Abdominal pain during second trimester . TECHNIQUE: Real-time ultrasound of the pelvis was performed. The interpreting radiologist was not pre sent for the study. COMPARISON: 04/27/2021 FINDINGS: There is a single living fetus in breech presentation. The placenta is fundal. No evident subchorion ic hematoma. heart rate is 145 beats per minute (bpm). The amniotic fluid volume is subjectivel y normal. IMPRESSION: 1. Single living fetus in breech presentation with heart rate of 145 bpm. Reviewed, dictated and finalized at location B.
[2021-06-21 07:18] LABS: Basophils Percent Auto 0.4 % (0.2-1.2); Eosinophils Absolute Auto 0.1 K/mm3 (0-0.3); Eosinophils Percent Auto 0.8 % (0-4.4); Hematocrit 33.9 % (37.0-47.0); Hemoglobin 11.4 g/dL (12.0-15.0); Immature Granulocyte Absolute 0.09 K/mm3 (0.00-0.031); Immature Granulocyte Percent A 0.9 % (0-0.5); Lymphocytes Absolute Auto 1.76 K/mm3 (0.9-3.2); Lymphocytes Percent Auto 17.2 % (18.3-44.2); Mean Corpuscular HGB Conc 33.6 g/dl (32-36); Mean Corpuscular Hemoglobin 30.5 pg (26-34); Mean Corpuscular Volume 90.6 fl (80-100); Mean Platelet Volume 9.3 fl (7.4-10.4); Monocytes Absolute Auto 0.7 K/mm3 (0.1-0.6); Monocytes Percent Auto 6.7 % (2.6-8.5); Neutrophils Absolute Auto 7.6 K/mm3 (1.3-6.7); Platelet Count Result 239 k/mm3 (150-375); Red Blood Count 3.74 M/mm3 (4.2-5.4); Red Cell Distribution Width 12.7 % (11.5-14.5); White Blood Count 10.3 K/mm3 (4.5-10.0)
[2021-06-21 07:26] LABS: Alanine Aminotransferase 13 U/L (4-35); Albumin Level 3.9 g/dL (3.5-5.1); Alkaline Phosphatase 69 U/L (38-126); Anion Gap 7 mmol/L (8-16); Aspartate Amino Transferase 22 U/L (14-36); Bilirubin,Total 0.2 mg/dL (0.2-1.3); Blood Urea Nitrogen 5 mg/dL (7-17); Calcium 8.1 mg/dL (8.4-10.2); Carbon Dioxide 22 mmol/L (22-30); Chloride 107 mmol/L (98-107); Estimated CRCL calculation 201 ml/min; Estimated Glomerular Filt Rate > 60; Glucose 98 mg/dL (65-110); Lipase 80 U/L (23-300); Potassium 3.6 mmol/L (3.4-5.0); Sodium 136 mmol/L (137-145)
[2021-06-21 07:35] LABS: Add Urine Microscopic? YES; Appearance Urine Clear (Clear); Bacteria Urine Trace /hpf; Bilirubin Urine Negative (Negative); Blood Urine Negative (Negative); Color Urine Yellow (Yellow); Glucose Urine UA 2+ mg/dL (Negative); Ketones Urine Negative (Negative); Leukocyte Esterase Ur Negative LEU/UL (Negative); Mucus Urine Rare /lpf; Nitrate Urine Negative (Negative); Protein Urine Negative (Negative); Specific Grav Ur 1.025 (1.001-1.035); Squamous Epithelial Cell Urine Few /hpf (Few); Urobilinogen Urine Negative mg/dL (<2.0)
--- NOTE | 2021-06-21 09:44 | ED.GENADULT ---
HPI - General Adult General Chief complaint: Abdominal Pain Stated complaint: 19 weeks preg, abd pain Time Seen by Provider: 06/21/21 08:19 Source: patient History of Present Illness HPI narrative: Patient is a 25 y/o female complaining of right lower abdominal pain starting earlier today around 4:30 AM. She describes her pain as a pressure and rates it as 7/10. There is no known alleviating or exacerbating factor. She had several episode of vomiting which she attributed to pain. She has no diarrhea, dysuria or vaginal bleeding. Of note, she is 19 week . Related Data Allergies Allergy/AdvReac Type Severity Reaction Status Date / Time fluconazole Allergy Unknown Unknown Verified 06/18/20 00:00 Review of Systems Constitutional: Constitutional: Denies chills, Denies fever(s), Denies headache(s) and Denies weakness Eyes: Eyes: Denies blurry vision ENT: Denies headache(s) and Denies neck pain Cardiovascular: Cardiovascular: Denies chest pain and Denies dyspnea Respiratory: Respiratory: Denies cough and Denies dyspnea Gastrointestinal: Gastrointestinal: Reports abdominal pain, Denies diarrhea, Reports nausea and Reports vomiting Genitourinary: Genitourinary: Denies hematuria and Denies dysuria Musculoskeletal: Musculoskeletal: Denies back pain and Denies neck pain Neurologic: Denies headache(s) and Denies weakness [facility] Past Medical History Medical History Nephrolithiasis Social History Social History Alcohol intake: current Gender identity (if verbalized by the patient): Female Exam Const: General: no acute distress and well developed Orientation/consciousness: oriented to person, oriented to place, oriented to time and patient oriented x3 HENMT: Head: normocephalic Ears: external ears normal General nose exam: Normal external nose present Eyes: General: appearance normal, both eyes and all related structures Conjunctivae: conjunctivae normal Neck: Neck: normal visual inspection and full ROM Chest: Chest palpation & inspection: normal inspection of the chest and no tenderness Resp: Effort & Inspection: normal respiratory effort Auscultation: clear to auscultation bilaterally Cardio: Rate: regular rate Rhythm: regular rhythm GI: Inspection: other (Gravid uterus) GI Palp: No abdominal tenderness and Yes Soft to palpation Skin: General skin exam: normal color and turgor normal Neuro: General: oriented to person, oriented to place, oriented to time and patient oriented x3 Cognition (Neuro): normal cognition Extrem: General: normal to inspection, full ROM and no pedal edema Psych: Appearance: grossly normal Mental Status: mental status grossly normal Affect: normal affect Course Consultations Consultation #1: Discussed with Dr. Valdez (surgery), who evaluated patient in ED and recommends MRI to evaluate for possible appendicitis. Date: 06/21/21 Time: 10:55 Consultation #2: Discussed with Dr. Luque about MRI finding. She recommends pelvic rest and follow up with her. Date: 06/21/21 Time: 13:50 Consultation #3: Discussed with Dr. Valdez, who states that patient can be discharged from surgical standpoint. Date: 06/21/21 Time: 14:19 Vital Signs Vital signs: Vital Signs Temperature 36.5 C 06/21/21 07:03 Pulse Rate 92 06/21/21 07:03 Respiratory Rate 18 06/21/21 07:03 Blood Pressure 139/69 06/21/21 07:03 Pulse Oximetry 99 06/21/21 07:03 Temperature 36.5 C 06/21/21 07:03 Pulse Rate 82 06/21/21 14:29 Respiratory Rate 16 06/21/21 14:29 Blood Pressure 126/76 06/21/21 14:29 Pulse Oximetry 98 06/21/21 14:29 Medical Decision Making Vital Signs Vital Signs: Vital Signs Temperature 36.5 C 06/21/21 07:03 Pulse Rate 92 06/21/21 07:03 Respiratory Rate 18 06/21/21 07:03 Blood Pressure 139/69 06/21/21 07:03 Pulse Oximetry 99 06/21/21
--- NOTE | 2021-06-21 11:19 | PM.CNGS ---
Assessment and Plan Assessment and plan (1) Abdominal pain: Code(s): R10.9 - Unspecified abdominal pain Status: Acute Assessment and Plan: exam largely benign, will get MRI abdomen for further evaluation History of Present Illness Consult details Consult date: 06/21/21 Reason for consult: abdominal pain Requesting physician: Brittney Robledo MD Narrative: Pt is a 25 y/o F currently 19 wks , presenting to ED c/o severe right lower abdominal pain. Pt reports pain started this morning around 430. Pt reports pain initially intermittent and less severe. Pt reports as day went along pain became much more constant and severe. Pt reports pain is dull, constant at about a 7/10. Pt reports an episode of emesis this morning. Pt also describes decreased appetite. Pt reports this pain is new and not like pain that she has been experiencing. Review of Systems Constitutional: Constitutional: Denies anorexia, Denies body ache(s), Denies chills, Reports fatigue, Denies fever(s), Reports lethargy, Denies malaise, Reports poor appetite, Denies weakness, Denies weight gain and Denies weight loss Eyes: Eyes: Reports no additional eye complaints ENT: Reports system reviewed and no additional complaints, except as documented Cardiovascular: Cardiovascular: Reports no additional cardiovascular complaints Respiratory: Respiratory: Reports no additional respiratory complaints Gastrointestinal: Gastrointestinal: Reports as per HPI, Reports abdominal pain, Denies belching, Reports bloating, Denies change in bowel habits, Denies change in stool character, Denies coffee ground emesis, Denies constipation, Reports GI cramping, Denies dyspepsia, Reports heartburn, Denies diarrhea, Denies loose stools, Reports nausea, Reports vomiting and Denies hematemesis Genitourinary: Genitourinary: Reports no additional female genitourinary complaints Musculoskeletal: Musculoskeletal: Reports no additional musculoskeletal complaints Integumentary/Breasts: Skin/Breast: Reports system reviewed and no additional complaints, except as docu Neurologic: Reports system reviewed and no additional complaints, except as documented Psychiatric: Psychiatric: Reports no additional psychiatric complaints Endocrine: Endocrine: Reports no additional endocrine complaints Hematologic/Lymphatic: Hematologic/Lymphatic: Reports no additional hematologic/lymphatic complaints Allergic/Immunologic: Allergic/Immunologic: Reports no additional allergic/immunologic complaints PMFSH Past Medical History Medical History Nephrolithiasis Social History Social History Alcohol intake: current Gender identity (if verbalized by the patient): Female Comments pt denies any previous abdominal surgery pt denies any known FH of colorectal cancers, IBD Meds Home Medications and Allergies Home Medications Medication Instructions Recorded Confirmed Type ondansetron HCl [Zofran] 4 mg PO Q8H #21 tablet MDD Sig as 04/09/21 06/02/21 Rx a dose-[place]. Allergies Allergy/AdvReac Type Severity Reaction Status Date / Time fluconazole Allergy Unknown Unknown Verified 06/18/20 00:00 Vital Signs Vital Signs - 24 hr 06/21/21 07:03 06/21/21 07:20 06/21/21 07:21 Temperature 36.5 C Pulse Rate 92 60 Respiratory Rate 18 12 Blood Pressure 139/69 128/74 Pulse Oximetry 99 98 98 06/21/21 07:30 06/21/21 07:31 06/21/21 07:45 Temperature Pulse Rate 66 Respiratory Rate 12 Blood Pressure 125/74 Pulse Oximetry 100 99 99 06/21/21 08:00 06/21/21 08:01 06/21/21 08:15 Temperature Pulse Rate 66 Respiratory Rate 12 Blood Pressure 131/106 H Pulse Oximetry 98 100 99 06/21/21 08:30 06/21/21 08:32 06/21/21 08:45 Temperature Pulse Rate 68 Respiratory Rate 12 Blood Pressure 108/47 L Pulse Oximetry 98 99 99
== END 2021-06-21 14:30 | disposition home or self-care (01) ==
PROVIDERS: Emergency Medicine; Emergency Provider Emergency Medicine; PCP Family Medicine
DX: O26.892 Other specified pregnancy related conditions, second trimester (principal); R10.2 Pelvic and perineal pain; Z87.442 Personal history of urinary calculi; Z3A.19 19 weeks gestation of pregnancy
CPT/HCPCS: 36415; 74181; 76815; 80053; 81001; 81025; 83690; 85025; 87086; 87088; 99284

== ENCOUNTER 2021-06-29 15:52 | Outpatient (CLI) | payer OTHER, SELFPAY ==
--- NOTE | ~2021-06-29 | US_ITS ---
EXAMINATION: US OB /maternal detail EXAM DATE: 06/29/2021 16:44 INDICATION: anatomy screening. 2nd trimester. TECHNIQUE: Pelvic obstetrical transabdominal sonogram was performed by a technologist. There are mu ltiple grayscale and Doppler images available for interpretation. Comparison is made to prior examina tion from 06/21/2021. FINDINGS: There is a single fetus identified in vertex presentation with a heart rate of 141 beats pe r minute. The placenta is located in the anterior position. There are anechoic placental regions whic h are probably venous lakes. There is no sonographic evidence of retroplacental hemorrhage identified . The amniotic fluid index is 15.4 centimeters, which is normal. Placental margin to internal cervica l os distance is 3.8 cm. BIOMETRIC DATA: Biparietal diameter (BPD): 5.0 cm ----------------> 21 weeks 1 day. Head circumference (HC): 19.4 cm ----------------> 21 weeks 4 days. Abdominal circumference (AC): 15.7 cm ----------> 20 weeks 6 days. Femur length (FL): 3.4 cm --------------------------> 20 weeks 6 days. These measurements are concordant. HC/AC ratio is 1.24 (The 5th -- 95th percentile range is 1.06-1.25. Estimated weight is 386 g +/- 58 g. This is the 85th percentile when the currently reported cl inical gestation age 20 weeks 1 day, clinical estimated date of delivery (ARIA-OPE) 11/15/2021 is used. estimated gestational age based on measurements from this exam is 21 weeks 1 day, with an helga mated date of delivery (ARIA-AUA) 11/08. ANATOMIC SURVEY: The following anatomy is identified and is sonographically normal in appearance: Cerebral ventricles Cerebellum Cisterna magna Cavum septum pellucidum Nuchal fold CTL-spine Four-chamber heart Outflow tracts Diaphragm Stomach Kidneys Bladder Three-vessel cord Cord insertion Lips, nose Extremities IMPRESSION: 1. Single fetus in vertex presentation with heart rate 141 beats per minute. 2. Estimated weight of 386 grams, 85th percentile using the currently reported clinical gestat ion age of 20 weeks 1 day, ARIA(OPE) 11/15. 3. Normal Amniotic Fluid Index 15.4 cm. 4. Normal anatomic survey. Reviewed, dictated and finalized at location A. IMPRESSION: 1. Single fetus in vertex presentation with heart rate 141 beats per minute. 2. Estimated weight of 386 grams, 85th percentile using the currently re ported clinical gestation age of 20 weeks 1 day, ARIA(OPE) 11/15. 3. Normal Amniotic Fluid Index 15.4 cm. 4. Normal anatomic survey.
== END 2021-06-29 15:53 | disposition home or self-care (01) ==
LOC: ANHIMG 15:55
PROVIDERS: PCP Family Medicine; Visit Provider Obstetrics & Gynecology Gynecology
DX: Z34.92 Encounter for supervision of normal pregnancy, unspecified, second trimester (principal); Z3A.21 21 weeks gestation of pregnancy
CPT/HCPCS: 76805

== ENCOUNTER 2021-07-14 17:22 | Emergency (ER) | payer OTHER, SELFPAY ==
[2021-07-14 17:33] VITALS: BP 152/79; PULSE 96; RESP 17; TEMP 36.8; O2SAT 99
[2021-07-14 18:33] LABS: Basophils Percent Auto 0.3 % (0.2-1.2); Eosinophils Absolute Auto 0.1 K/mm3 (0-0.3); Eosinophils Percent Auto 0.5 % (0-4.4); Hematocrit 34.3 % (37.0-47.0); Hemoglobin 11.4 g/dL (12.0-15.0); Immature Granulocyte Absolute 0.09 K/mm3 (0.00-0.031); Immature Granulocyte Percent A 0.7 % (0-0.5); Lymphocytes Absolute Auto 1.96 K/mm3 (0.9-3.2); Lymphocytes Percent Auto 15.6 % (18.3-44.2); Mean Corpuscular HGB Conc 33.2 g/dl (32-36); Mean Corpuscular Hemoglobin 30.1 pg (26-34); Mean Corpuscular Volume 90.5 fl (80-100); Mean Platelet Volume 9.4 fl (7.4-10.4); Monocytes Absolute Auto 0.7 K/mm3 (0.1-0.6); Monocytes Percent Auto 5.7 % (2.6-8.5); Neutrophils Absolute Auto 9.7 K/mm3 (1.3-6.7); Neutrophils Percent Auto 77.2 % (45.5-73.1); Platelet Count Result 265 k/mm3 (150-375); Red Blood Count 3.79 M/mm3 (4.2-5.4); Red Cell Distribution Width 12.1 % (11.5-14.5); White Blood Count 12.6 K/mm3 (4.5-10.0)
[2021-07-14 18:39] LABS: Add Urine Microscopic? YES; Appearance Urine Cloudy (Clear); Bacteria Urine Trace /hpf; Bilirubin Urine Negative (Negative); Blood Urine Negative (Negative); Color Urine Yellow (Yellow); Glucose Urine UA 1+ mg/dL (Negative); Ketones Urine Negative (Negative); Leukocyte Esterase Ur Negative LEU/UL (Negative); Mucus Urine Rare /lpf; Nitrate Urine Negative (Negative); Protein Urine Negative (Negative); Specific Grav Ur 1.025 (1.001-1.035); Squamous Epithelial Cell Urine Many /hpf (Few); Urobilinogen Urine Negative mg/dL (<2.0); WBC Urine 0-3 /hpf
[2021-07-14 19:07] LABS: Alanine Aminotransferase 14 U/L (4-35); Albumin Level 3.7 g/dL (3.5-5.1); Alkaline Phosphatase 73 U/L (38-126); Anion Gap 7 mmol/L (8-16); Aspartate Amino Transferase 18 U/L (14-36); Bilirubin,Total < 0.1 mg/dL (0.2-1.3); Blood Urea Nitrogen 5 mg/dL (7-17); Carbon Dioxide 23 mmol/L (22-30); Chloride 107 mmol/L (98-107); Estimated CRCL calculation 201 ml/min; Estimated Glomerular Filt Rate > 60; Glucose 107 mg/dL (65-110); Lipase 52 U/L (23-300); Potassium 3.3 mmol/L (3.4-5.0); Sodium 137 mmol/L (137-145)
[2021-07-14 19:26] VITALS: BP 146/64; PULSE 95; RESP 16; O2SAT 99
[2021-07-14] MEDS: SODIUM CHLORIDE 0.9% IV 1,000 ML 999 ML IV CONT (21:14)
--- NOTE | 2021-07-14 22:17 | ED.NAVMDI ---
HPI - Nausea/Vomiting/Diarrhea General Chief complaint: Nausea/Vomiting/Diarrhea Stated complaint: diarrhea, 22wk , sent by ob dept Time Seen by Provider: 07/14/21 20:45 Source: patient Mode of arrival: wheelchair Limitations: no limitations History of Present Illness HPI Narrative: 25-year-old 1 para 0 about 22 weeks of gestation here with complaints of nausea, vomiting and diarrhea for past 2 days. Patient states that she was initially having some lower abdominal pain went to L&D and was later referred to the ER. She presently denies any vaginal bleeding or discharge. She states that she has a history of seasonal allergies allergies and has occasional cough. She denies any fever or chills. MD elicited complaint: nausea, vomiting and diarrhea Description of vomiting: watery Description of diarrhea: watery Associated nausea: Yes Associated abdominal pain: Yes Severity: mild Quality: cramping Exacerbating factors: none Relieving factors: none Associated symptoms: denies other symptoms Related Data Allergies Allergy/AdvReac Type Severity Reaction Status Date / Time fluconazole Allergy Unknown Unknown Verified 06/18/20 00:00 Review of Systems Review of Systems: All systems reviewed & are unremarkable except as noted in HPI and below Constitutional: Constitutional: Reports no additional constitutional complaints Eyes: Eyes: Reports no additional eye complaints ENT: Reports system reviewed and no additional complaints, except as documented Cardiovascular: Cardiovascular: Reports no additional cardiovascular complaints Respiratory: Respiratory: Reports no additional respiratory complaints Gastrointestinal: Gastrointestinal: Reports as per HPI Musculoskeletal: Musculoskeletal: Reports no additional musculoskeletal complaints Neurologic: Reports system reviewed and no additional complaints, except as documented PMFSH Past Medical History Medical History Nephrolithiasis Social History Social History Alcohol intake: current Gender identity (if verbalized by the patient): Female Exam Narrative: GENERAL: Well-appearing, well-nourished, and in no acute distress. HEAD: Normocephalic, atraumatic. EYES: PERRLA and EOMI.. NECK: Supple. CHEST: Clear to auscultation. No respiratory distress. HEART: Regular rate and rhythm. No murmur heard. Normal peripheral pulses. ABDOMEN: Soft, nontender, gravid abd . EXTREMITIES: Normal range of motion. No edema. SKIN: Warm, dry, no rash. NEURO: No focal deficits. Alert and oriented x3. PSYCH: Normal mood and affect. Course Course Emergency Course: Patient had no further episodes of any nausea or vomiting or abdominal pain here. I discussed her lab work. She states that she is feeling much better after IV fluids. I discussed with Dr. Su who is covering for Dr. Malhotra. Patient can be discharged home. Vital Signs Vital signs: Vital Signs Temperature 36.8 C 07/14/21 17:33 Pulse Rate 96 07/14/21 17:33 Respiratory Rate 17 07/14/21 17:33 Blood Pressure 152/79 H 07/14/21 17:33 Pulse Oximetry 99 07/14/21 17:33 Temperature 36.8 C 07/14/21 17:33 Pulse Rate 95 07/14/21 19:26 Respiratory Rate 16 07/14/21 19:26 Blood Pressure 146/64 H 07/14/21 19:26 Pulse Oximetry 99 07/14/21 19:26 MDM - Nausea/Vomiting/Diarrhea Lab Data Result diagrams: 07/14/21 18:13 07/14/21 18:13 Labs: Lab Results 07/14/21 07/14/21 07/14/21 Range/Units 18:13 18:13 18:17 WBC 12.6 H (4.5-10.0) K/mm3 RBC 3.79 L (4.2-5.4) M/mm3 Hgb 11.4 L (12.0-15.0) g/dL Hct 34.3 L (37.0-47.0) % MCV 90.5 (80-100) fl MCH 30.1 (26-34) pg MCHC 33.2 (32-36) g/dl RDW 12.1 (11.5-14.5) % Plt Count 265 (150-375) k/mm3 MPV 9.4 (7.4-10.4) fl Immature Gran % (Auto) 0.7 H (0-0.5) % N
[2021-07-15 17:33] LABS: SARS-CoV-2 RNA PCR Negative
== END 2021-07-14 22:36 | disposition home or self-care (01) ==
PROVIDERS: Emergency Medicine; Emergency Provider Family Medicine; PCP Family Medicine
DX: Z20.822 Contact with and (suspected) exposure to COVID-19 (principal); K52.9 Noninfective gastroenteritis and colitis, unspecified; Z87.442 Personal history of urinary calculi
CPT/HCPCS: 36415; 80053; 81001; 83690; 85025; 96360; 99283; C9803; J7030; U0003; U0005

== ENCOUNTER 2021-07-26 10:13 | Observation (INO) | payer OTHER, SELFPAY ==
[2021-07-26] VITALS (29 sets, daily range): BP systolic 109–126; BP diastolic 57–93; PULSE 84–99; O2SAT 95–100; BMI 35.2
--- NOTE | 2021-07-26 10:40 | OBADM ---
This patient, Manuela Kwon, admitted to the OB room OB Post 113 for observation. Patient/family oriented to hospital policies and general routines including ID bracelet, bed and alarms, visiting hours, pain management, procedures, bathroom and other care routines, personal items, smoking policy, room service/diet, and visiting hours. Patient/Family are encouraged to report perceived risks to care and to ask questions if they do not understand what they are told or what they should do.
--- NOTE | 2021-07-26 10:40 | PC.NURSE ---
Dr Luque on unit, Informed of Natural Gas exposure at work. Order for observation and O2 saturation.
[2021-07-26] MEDS: ACETAMINOPHEN 500 MG TABLET 1000 MG PO (11:17)
--- NOTE | 2021-07-26 13:23 | PC.NURSE ---
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 That patient is now feeling better and no longer has a headache. OK to dc home.
--- NOTE | 2021-07-31 09:40 | PM.OBTRLD ---
OB - Triage/Final Diagnosis Visit Information Reason for evaluation: other (exposure to methane gas at work) Comments/Additional reasons for admission: I have assessed the risk for this patient, Manuela Kwon, and determined that she would benefit from observation care.
== END 2021-07-26 13:01 | disposition home or self-care (01) ==
PROVIDERS: Admitting Provider Obstetrics & Gynecology Gynecology; PCP Family Medicine; Visit Provider Obstetrics & Gynecology Gynecology
DX: O99.891 Other specified diseases and conditions complicating pregnancy (principal); T59.91XA Toxic effect of unspecified gases, fumes and vapors, accidental (unintentional), initial encounter; Z3A.24 24 weeks gestation of pregnancy
CPT/HCPCS: A9270; G0378; G0379

== ENCOUNTER 2021-08-16 06:57 | Observation (INO) | payer OTHER, SELFPAY ==
[2021-08-16 07:16] VITALS: BP 127/63; PULSE 86
[2021-08-16 07:29] VITALS: BMI 37.6
--- NOTE | 2021-08-16 07:29 | OBADM ---
This patient, Manuela Kwon, admitted to the OB room OB Post 116 for observation. Patient/family oriented to hospital policies and general routines including ID bracelet, bed and alarms, visiting hours, pain management, procedures, bathroom and other care routines, personal items, smoking policy, room service/diet, and visiting hours. Patient/Family are encouraged to report perceived risks to care and to ask questions if they do not understand what they are told or what they should do.
[2021-08-16 07:31] VITALS: BP 119/62; PULSE 87
[2021-08-16 07:36] LABS: Add Urine Microscopic? YES; Appearance Urine Cloudy (Clear); Bacteria Urine 3+ /hpf; Bilirubin Urine Negative (Negative); Blood Urine Negative (Negative); Color Urine Yellow (Yellow); Glucose Urine UA Negative (Negative); Ketones Urine Negative (Negative); Leukocyte Esterase Ur Negative LEU/UL (NEGATIVE); Nitrate Urine Negative (Negative); Protein Urine Negative (Negative); Specific Grav Ur 1.009 (1.001-1.035); Squamous Epithelial Cell Urine Many /hpf (Few); Urobilinogen Urine Negative mg/dL (<2.0)
[2021-08-16 07:46] VITALS: BP 120/62; PULSE 78
[2021-08-16 08:01] VITALS: BP 120/57; PULSE 82
[2021-08-16 08:16] VITALS: BP 120/59; PULSE 78
--- NOTE | 2021-08-19 13:31 | P.PNOB_ITS ---
OB - Triage/Final Diagnosis Visit Information Reason for evaluation: threatened labor Comments/Additional reasons for admission: I have assessed the risk for this patient, Manuela Kwon, and determined that she would benefit from observation care. Evaluation Laboratory results: Laboratory Tests 08/16/21 07:21 Urine Color Yellow Urine Appearance Cloudy H Urine pH 7.0 Ur Specific Palmer 1.009 Urine Protein Negative Urine Glucose (UA) Negative Urine Ketones Negative Ur Blood (Man) Negative Urine Nitrate Negative Urine Bilirubin Negative Urine Urobilinogen Negative Ur Leukocyte Esterase Negative Urine RBC 3-5 H Urine WBC 7-9 H Ur Squamous Epith Cells Many H Urine Bacteria 3+ H
== END 2021-08-16 08:22 | disposition home or self-care (01) ==
PROVIDERS: Admitting Provider Obstetrics & Gynecology Gynecology; PCP Family Medicine; Visit Provider Obstetrics & Gynecology Gynecology
DX: O47.02 False labor before 37 completed weeks of gestation, second trimester (principal); Z3A.27 27 weeks gestation of pregnancy
CPT/HCPCS: 81001; 87086; G0378; G0379

== ENCOUNTER 2021-08-18 11:58 | Outpatient (CLI) | payer OTHER, SELFPAY ==
[2021-08-18 13:22] LABS: Hematocrit 34.4 % (35.0-49.0); Hemoglobin 11.4 g/dL (12.0-15.0)
[2021-08-18 13:35] LABS: Glucose 1 Hour PP 50gm Dose 129 mg/dL (70-130)
[2021-08-18 14:08] LABS: HIV 1 P24 AG Negative (Negative); HIV 1/2 AB Negative (Negative)
[2021-08-21 12:29] LABS: Vitamin D 25 Hydroxy 59 ng/mL (30-100)
== END 2021-08-18 11:59 | disposition home or self-care (01) ==
LOC: CHSLAB 12:00
PROVIDERS: PCP Family Medicine; Visit Provider Nurse Practitioner
DX: Z34.02 Encounter for supervision of normal first pregnancy, second trimester (principal)
CPT/HCPCS: 36415; 82306; 82947; 85014; 85018; 86703

== ENCOUNTER 2021-09-02 04:38 | Emergency (ER) | payer OTHER, SELFPAY ==
[2021-09-02 04:47] VITALS: BP 129/78; PULSE 86; RESP 17; TEMP 36.5; O2SAT 98
--- NOTE | 2021-09-02 05:27 | PC.NURSE ---
Mother signed HIV testing form.
--- NOTE | 2021-09-02 05:28 | ED.HA ---
HPI - Headache General Chief Complaint: Headache Stated Complaint: head ache Source: patient Mode of arrival: ambulatory Limitations: no limitations History of Present Illness HPI Narrative: Pt brandee this is her typical migraine headache. It started over 24 hours ago and she has been throwing up and pain wont go away. She has fioricet and she takes 1 every 6 hours. She last took it at 2 or 3 am (300mg tylenol). She is 30 weeks . She has been taking zofran at home as well. MD elicited complaint: migraine Pertinent past history: migraines Onset (ago): day(s) Onset description: gradually Location: left and frontal Severity: severe Quality & Timing: throbbing and similar to previous headaches Relieving factors: ice packs (usually she takes 4 ibeuprofen and benadryl and it goes away. did not try either of those bc of preg) Associated symptoms: nausea and vomiting Treatments prior to arrival: prescription analgesic (fioricet- 1 tab ) and antiemetic Related Data Home Medications Medication Instructions Recorded Confirmed ergocalciferol (vitamin D2) 1,250 mcg PO DAILY 08/16/21 09/02/21 -axab fum-folic ac-om3 1 pkg PO DAILY 08/16/21 09/02/21 epigjzkrur-vsqdvgfpcauwh-fjgw 1 cap PO Q4-6H PRN 09/02/21 09/02/21 Allergies Allergy/AdvReac Type Severity Reaction Status Date / Time fluconazole Allergy Unknown Unknown Verified 09/02/21 05:00 Review of Systems Review of Systems: All systems reviewed & are unremarkable except as noted in HPI and below Constitutional: Constitutional: Reports no additional constitutional complaints Eyes: Eyes: Reports photophobia ENT: Reports system reviewed and no additional complaints, except as documented Cardiovascular: Cardiovascular: Reports no additional cardiovascular complaints Respiratory: Respiratory: Reports no additional respiratory complaints Gastrointestinal: Gastrointestinal: Reports as per HPI, Denies abdominal pain, Denies bloating, Denies constipation, Denies heartburn, Denies diarrhea, Reports nausea and Reports vomiting Genitourinary: Genitourinary: Reports no additional female genitourinary complaints Musculoskeletal: Musculoskeletal: Reports no additional musculoskeletal complaints Integumentary/Breasts: Skin/Breast: Reports system reviewed and no additional complaints, except as docu Neurologic: Denies confusion, Denies vertigo, Denies dizziness, Denies syncope, Reports headache(s), Denies focal weakness, Denies numbness and Denies weakness Psychiatric: Psychiatric: Reports no additional psychiatric complaints Hematologic/Lymphatic: Hematologic/Lymphatic: Reports no additional hematologic/lymphatic complaints Allergic/Immunologic: Allergic/Immunologic: Reports no additional allergic/immunologic complaints [facility] Past Medical History Medical History (Updated 09/02/21 @ 05:38 by Erika Hernandez MD) Migraine Nephrolithiasis Surgical History Surgical History History of tonsillectomy and adenoidectomy Social History Social History (Updated 09/02/21 @ 05:35 by Erika Hernandez MD) Smoking status: Never smoker Alcohol intake: former Substance use: never Living arrangements: with family Gender identity (if verbalized by the patient): Female Exam Const: General: no acute distress and alert Orientation/consciousness: patient oriented x3 HENMT: Head: normal to inspection Eyes: Conjunctivae: conjunctivae normal Pupils: Equal, round and reactive pupils present EOM: EOMs intact bilaterally Neck: Neck: normal visual inspection Chest: Chest palpation & inspection: normal inspection of the chest Resp: Effort & Inspection: normal respiratory effort Auscultation: clear to auscultation bilaterally Cardio: Rate: regular rate Rhythm: regular rhythm GI: GI Palp: Yes Soft to palpation, No Tenderness to palpation present (GI) and No Guarding due to palpation present
[2021-09-02] MEDS: DEXTROSE 5%/0.9% SOD CHL 1,000 ML 1000 ML IV CONT (05:53)
[2021-09-02] MEDS: ONDANSETRON INJ 4 MG/2 ML VIAL IV PUSH (05:54)
[2021-09-02] MEDS: diphenhydrAMINE HCl INJ 50 MG/ML VIAL IV PUSH (05:54)
[2021-09-02 07:16] VITALS: BP 114/79; PULSE 87; RESP 20; O2SAT 99
== END 2021-09-02 07:24 | disposition home or self-care (01) ==
PROVIDERS: Emergency Provider Emergency Medicine; PCP Family Medicine
DX: G43.909 Migraine, unspecified, not intractable, without status migrainosus (principal)
CPT/HCPCS: 96361; 96365; 96375; 99283; 99284; J0131; J1200; J2405; J7042

== ENCOUNTER 2021-09-06 09:18 | Outpatient (CLI) | payer OTHER, SELFPAY ==
[2021-09-06 09:38] LABS: Hematocrit 33.7 % (35.0-49.0); Hemoglobin 11.1 g/dL (12.0-15.0)
== END 2021-09-06 09:19 | disposition home or self-care (01) ==
LOC: CHSLAB 09:20
PROVIDERS: PCP Family Medicine; Visit Provider Obstetrics & Gynecology Gynecology
DX: O99.013 Anemia complicating pregnancy, third trimester (principal)
CPT/HCPCS: 36415; 85014; 85018

== ENCOUNTER 2021-09-15 09:32 | Outpatient (RCR) | payer OTHER, SELFPAY ==
--- NOTE | 2021-09-15 10:19 | PTOPEVAL ---
Thank you for referring Manuela Kwon to [facility].? The patient is scheduled to be seen for therapy? __2__x/week for 10 visits. Please review, sign, date and return this plan of care KAIDEN. I agree with and certify that the following plan of care is medically necessary. Referring Physician Date Admitting Provider: Attending Provider: Yojana Luque MD Referring Provider: *PT Outpatient Evaluation Start: 09/15/21 09:35 Freq: Status: Active Protocol: Document 09/15/21 09:35 LOTUS (Rec: 09/15/21 10:18 LOTUS [id number]) Therapy Assessment Status Assessment Status Assessment Status Evaluation Outpatient Past Medical History Neurological History Hx Migraine Yes HEENT History Hx Tonsillectomy Yes Evaluation Information Problem Diagnosis bilateral hip pain during Onset 04/18/21 Subjective Information Pt. reports she started Query Text:As Reported By Patient/ developing hip pain around Family April. She is currently in the 3rd trimester of her . She reports pain is more intense on the left than the right. She describes pain in the groin and greater trochanter. She reports that pain is constant. She reports that getting out of bed or rolling in bed is very painful . She reports that pain wakes her at night frequently. She reports that she sits mostly for work, and can complete her work tasks. She reports that she can only stand for about 20 minutes prior to her pain increasing. She does have a yoga ball that has helped with easing her pain. She reports that her goal for therapy is to decrease her pain. Pain Assessment Timing of Pain Assessment Timing of Pain Assessment Pre-Treatment Pain Scale Pain Scale Used Numeric (1 - 10) Self Report Pain Assessment Left Hip(s) Reported Pain Level 7 Pain Frequency Continuous Right Hip(s) Reported Pain Level 5 Pain Frequency Intermittent Pain Score Pain Score 5,7: Self Report Interventions Used Interventions Used By Clinicians Education,Exercise
== END 2021-09-21 08:45 | disposition home or self-care (01) ==
LOC: CHSPT 09:32
PROVIDERS: Visit Provider Obstetrics & Gynecology Gynecology
DX: M25.552 Pain in left hip (principal); M25.551 Pain in right hip; Z33.1 Pregnant state, incidental
CPT/HCPCS: 97110; 97140; 97161

== ENCOUNTER 2021-09-19 16:11 | Outpatient (CLI) | payer OTHER, SELFPAY ==
[2021-09-19 17:03] VITALS: BP 120/65; PULSE 112
== END 2021-09-19 17:15 | disposition home or self-care (01) ==
LOC: ANHOBOP 16:48
PROVIDERS: Referring Provider Obstetrics & Gynecology Gynecology; Visit Provider Obstetrics & Gynecology Gynecology
DX: O42.913 Preterm premature rupture of membranes, unspecified as to length of time between rupture and onset of labor, third trimester (principal); Z3A.31 31 weeks gestation of pregnancy
CPT/HCPCS: 59025; 84112

== ENCOUNTER 2021-10-26 12:41 | Outpatient (CLI) | payer OTHER, SELFPAY ==
--- NOTE | ~2021-10-26 | US_ITS ---
US OB follow up DATE: 10/26/2021 13:23 INDICATION: Size greater than dates TECHNIQUE: Real-time imaging and Doppler analysis COMPARISON: 06/29/2021 obstetrical ultrasound FINDINGS: Live gonzalez intrauterine gestation, fetus in vertex presentation, longitudinal lie with heart rate of 142 bpm. Anterior placenta. Amniotic fluid index measures 11.8 cm, which is within normal limits. (5th percentile LIEN: 7.5 cm; 95 th percentile LIEN: 24.4 cm). Biparietal diameter 9.64 cm; 39 weeks 3 days Head circumference 33.61 cm; 38 weeks 3 days Abdominal circumference 36.30 cm; 40 weeks 2 days Femur length 7.45 cm; 38 weeks 1 day Composite age by Hadlock formula based upon the current biometrics would be 39 weeks 1 day +/- 2 week s 5 days, with ARIA of 11/01/2021, compared 11/15/2021 by LMP. Estimated weight is 3798 +/- 5 170 g. Femur length/BPD 77.25, within normal range of 71.0-87.0 Head circumference/abdominal circumference 0.93, within normal range of 0.87-1.06 Femur length/abdominal circumference 20.51, within normal range of 20.00-24.00 Femur length/head circumference 22.15, within normal range of 20.61-23.27 IMPRESSION: Estimated gestational age by current measurements would be 39 weeks 1 day +/- 2 weeks 5 d ays with ARIA of 11/01/2021, compared to 11/15/2021 by LMP Estimated weight is 3798 +/- 570 g Reviewed, dictated and finalized at [facility]. Reviewed, dictated and finalized at location A. GEMENT LIAISON IMPRESSION: Estimated gestational age by current measurements would be 39 weeks 1 day +/- 2 weeks 5 days with ARIA of 11/01/2021, compared to 11/15/2021 by LMP Estimated weight is 3798 +/- 570 g
== END 2021-10-26 12:42 | disposition home or self-care (01) ==
LOC: ANHIMG 12:43
PROVIDERS: Visit Provider Obstetrics & Gynecology Gynecology
DX: O36.63X0 Maternal care for excessive fetal growth, third trimester, not applicable or unspecified (principal); Z3A.39 39 weeks gestation of pregnancy
CPT/HCPCS: 76816

== ENCOUNTER 2021-11-08 00:05 | Inpatient (IN) | payer OTHER, SELFPAY ==
[2021-11-08] VITALS (165 sets, daily range): BP systolic 100–140; BP diastolic 44–120; PULSE 73–195; TEMP 36.4–37.7; O2SAT 87–100; BMI 41.0
[2021-11-08] MEDS: DINOPROSTONE 10 MG VAG INSERT VAGINAL (00:48)
[2021-11-08 00:50] LABS: Basophils Absolute Auto 0.1 K/mm3 (0.0-0.1); Basophils Percent Auto 0.4 % (0.2-1.2); Eosinophils Absolute Auto 0.1 K/mm3 (0-0.3); Eosinophils Percent Auto 0.5 % (0-4.4); Hematocrit 32.8 % (37.0-47.0); Hemoglobin 10.6 g/dL (12.0-15.0); Immature Granulocyte Absolute 0.15 K/mm3 (0.00-0.031); Immature Granulocyte Percent A 1.2 % (0-0.5); Lymphocytes Absolute Auto 2.03 K/mm3 (0.9-3.2); Lymphocytes Percent Auto 15.9 % (18.3-44.2); Mean Corpuscular HGB Conc 32.3 g/dl (32-36); Mean Corpuscular Hemoglobin 27.7 pg (26-34); Mean Corpuscular Volume 85.9 fl (80-100); Mean Platelet Volume 9.5 fl (7.4-10.4); Monocytes Percent Auto 7.8 % (2.6-8.5); Neutrophils Absolute Auto 9.4 K/mm3 (1.3-6.7); Neutrophils Percent Auto 74.2 % (45.5-73.1); Platelet Count Result 279 k/mm3 (150-375); Red Blood Count 3.82 M/mm3 (4.2-5.4); Red Cell Distribution Width 13.8 % (11.5-14.5); White Blood Count 12.7 K/mm3 (4.5-10.0)
[2021-11-08] MEDS: FAMOTIDINE 20 MG TABLET PO ×2 (02:55→16:28)
--- NOTE | 2021-11-08 06:01 | WPDANESEPP ---
Anes - Eval Pre Procedure Procedure: labor epidural Date/Time: 11/08/21 06:01 Surgeon: tiff Preop Diagnosis: labor epidural Pre Op Diagnosis: Induction of Labor Patient Data Age: 26 Gender: F Height: 1.8 m Weight: 133.35 kg Last Vital Signs Pulse 88 11/08/21 02:32 BP 134/70 11/08/21 02:32 Allergies Allergy/AdvReac Type Severity Reaction Status Date / Time fluconazole Allergy Unknown Unknown Verified 09/02/21 05:00 Home Medications Medication Instructions Recorded Confirmed Type ergocalciferol (vitamin D2) 1,250 mcg PO DAILY 08/16/21 10/15/21 History [id number] fum-folic ac-om3 1 pkg PO DAILY 08/16/21 10/15/21 History ferrous sulfate [Iron (ferrous 325 mg PO DAILY 10/15/21 10/15/21 History sulfate)] Laboratory Tests 11/08/21 11/08/21 11/08/21 00:39 00:39 00:39 WBC 12.7 K/mm3 H K/mm3 (4.5-10.0) RBC 3.82 M/mm3 L M/mm3 (4.2-5.4) Hgb 10.6 g/dL L g/dL (12.0-15.0) Hct 32.8 % L % (37.0-47.0) MCV 85.9 fl fl (80-100) MCH 27.7 pg pg (26-34) MCHC 32.3 g/dl g/dl (32-36) RDW 13.8 % % (11.5-14.5) Plt Count 279 k/mm3 k/mm3 (150-375) MPV 9.5 fl fl (7.4-10.4) Immature Gran % (Auto) 1.2 % H % (0-0.5) Neut % (Auto) 74.2 % H % (45.5-73.1) Lymph % (Auto) 15.9 % L % (18.3-44.2) [place] % (Auto) 7.8 % % (2.6-8.5) Eos % (Auto) 0.5 % % (0-4.4) Baso % (Auto) 0.4 % % (0.2-1.2) Lymph # (Auto) 2.03 K/mm3 K/mm3 (0.9-3.2) [place] # (Auto) 1.0 K/mm3 H K/mm3 (0.1-0.6) Eos # (Auto) 0.1 K/mm3 K/mm3 (0-0.3) Baso # (Auto) 0.1 K/mm3 K/mm3 (0.0-0.1) Abs Immat Gran (auto) 0.15 K/mm3 H K/mm3 (0.00-0.031) Absolute Neuts (auto) 9.4 K/mm3 H K/mm3 (1.3-6.7) Absolute Nucleated RBC 0.0 K/mm3 K/mm3 (0.0-0.012) Nucleated RBC % 0.0 % % (0.0-0.2) RPR Pending Blood Type O Positive Antibody Screen Negative Patient hx anesthesia problems: none Family hx anesthesia problems: none Results Review: All pre-operative results and documents have been reviewed as part of the pre-operative evaluation. [facility] Past Medical History Medical History Migraine Nephrolithiasis Surgical History Surgical History History of tonsillectomy and adenoidectomy Family History Family History (Updated 10/15/21 @ 13:40 by Vinny Reilly RN) Father Migraines Social History Social History (Updated 09/02/21 @ 05:35 by Erika Hernandez MD) Smoking status: Former smoker Tobacco type: e-cigarettes/vaping Alcohol intake: former Substance use: never Gender identity (if verbalized by the patient): Female Spiritual care concerns: No Exam Day of Procedure 11/08/21 06:01
[2021-11-08 07:15] LABS: Rapid Plasma Reagin Non-Reactive (NonReactive)
--- NOTE | 2021-11-08 11:59 | WPDOBADMIT ---
Obstetrics - Admit Note Admission Note: record reviewed. No pertinent additions to the history and/or any subsequent changes in the physical findings that are not consistent with the expected course of the were found. Additions to the history and/or subsequent changes in the physical findings follow. Here for MIL Cervadil last pm. Pulled and now 2-/-2 anterior. AROM with clear fluid. FHTs reactive. Plan pitocin
[2021-11-08] MEDS: LACTATED RINGERS 1,000 ML 125 ML IV CONT ×3 (12:49→21:00)
[2021-11-08] MEDS: OXYTOCIN 30 UNITS/NS 500 ML 30 UNITS/500 ML BAG 6 UNITS IV CONT (12:49)
[2021-11-08] MEDS: ONDANSETRON INJ 4 MG/2 ML VIAL IV PUSH (19:22)
[2021-11-08] MEDS: LIDOCAINE HCL 1% PF 30 ML VIAL (21:45)
--- NOTE | 2021-11-08 21:54 | P.PCNOB_ITS ---
OB - Delivery Note Procedure Delivery date: 11/08/21 Procedure: Induction method: AROM, Per Pitocin Protocol and Per Cervidil Protocol Delivery monitor: External FHT and Internal Uterine Route of delivery: Laceration Description: Perineal - 2nd Degree Delivery repair: vicryl (3-0) Specimen: No Quantitative Blood Loss (ml): 100 Anesthesia type: Local Disposition: floor [place] Baby Date of : 11/08/21 Weeks of gestation at delivery: 39 gender: Male Weight (pounds): 9 Weight (ounces): 3 presentation: vertex position: Right Occiput Anterior Placenta delivery description: Spontaneous Cord Vessel Description: 3 Vessels score one minute: 9 score five minutes: 9
--- NOTE | 2021-11-08 21:56 | P.DS_ITS ---
DS: Admitting Diagnosis Discharge Date 11/10/21 Admitting Diagnosis IUP 39 wks for CLAUDIA DS: Discharge Diagnosis Discharge Diagnosis (1) (normal spontaneous vaginal delivery): Code(s): O80 - Encounter for full-term uncomplicated delivery Status: Acute OB - DS: Summary OB Procedures : Ultrasound OB Procedures Intrapartum: Spontaneous Vag Delivery OB Procedures: : None Peripartum Data Infant Delivery Method: Natural Vaginal Laceration Description: Perineal - 2nd Degree complications: none Status at Discharge Functional status at discharge: independent ambulation Overall status at discharge: patient is progressing back to baseline Time Spent with Patient Time attestation: Total time spent providing and/or coordinating discharge services: DS: Data Data Completed and Pending Labs on day of discharge: Labs from last 24 hours 11/08/21 11/08/21 11/08/21 00:39 00:39 00:39 WBC 12.7 H RBC 3.82 L Hgb 10.6 L Hct 32.8 L MCV 85.9 MCH 27.7 MCHC 32.3 RDW 13.8 Plt Count 279 MPV 9.5 Immature Gran % (Auto) 1.2 H Neut % (Auto) 74.2 H Lymph % (Auto) 15.9 L [place] % (Auto) 7.8 Eos % (Auto) 0.5 Baso % (Auto) 0.4 Lymph # (Auto) 2.03 [place] # (Auto) 1.0 H Eos # (Auto) 0.1 Baso # (Auto) 0.1 Abs Immat Gran (auto) 0.15 H Absolute Neuts (auto) 9.4 H Absolute Nucleated RBC 0.0 Nucleated RBC % 0.0 RPR Non-reactive Blood Type O Positive Antibody Screen Negative Discharge Plan Discharge Attending physician on discharge: Yojana Luque Discharging Clinician: Yojana Luque Anticipated Discharge Date/Time: 11/10/21 21:59 Patient Disposition: Home, Self-Care Activity: may shower and pelvic rest Diet: regular Patient Instructions: Antibiotic Form Stand Alone Forms: General Discharge Information Follow-up/Referrals: Yojana Luque MD [Physician] - 6 Weeks Discharge Medications: New etonogestrel-ethinyl estradiol [EluRyng] 0.12-0.015 mg/24 hr ring 1 vag ring vaginal ONCE Qty: 3 RF: 1 Continued ergocalciferol (vitamin D2) 1,250 mcg (50,000 unit) capsule 1,250 mcg PO DAILY RF: 0 Discontinued [id number] fum-folic ac-om3 [id number] mg-mcg-mg Combo Pack 1 pkg PO DAILY RF: 0 ferrous sulfate [Iron (ferrous sulfate)] 325 mg (65 mg iron) Tablet 325 mg PO DAILY RF: 0 Date of admission: 11/08/21 00:05 Primary Care Provider: UNKNOWN,DOCTOR Admitting Provider: Yojana Luque Attending physician on admission: Yojana Luque Condition: Stable
--- NOTE | 2021-11-09 00:02 | PC.NURSE ---
Patient transferred to post room #288 via wheelchair. Support person, Rebecca, present. Oriented to unit, room, information board, rooming in, admission packet and security measures. Patient verbalizes understanding.
[2021-11-09 00:10] VITALS: BP 142/71; PULSE 86; RESP 16; TEMP 37.2; O2SAT 100
[2021-11-09] MEDS: WITCH HAZEL 40 PADS 1 PAD TOPICAL ×2 (00:12→16:59)
[2021-11-09 04:45] VITALS: BP 132/60; PULSE 92; RESP 18; TEMP 36.9; O2SAT 97
[2021-11-09 05:15] LABS: Hematocrit 29.2 % (37.0-47.0); Hemoglobin 9.6 g/dL (12.0-15.0)
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
--- NOTE | 2021-11-09 07:45 | PM.OBPNVD ---
OB - PN: Subj Subjective Date/time seen: 11/09/21 07:45 Patient comments: no complaints and pain well controlled baby status: doing well OB - PN: Obj Data Labs CBC & Chem 7: 11/09/21 05:03 Labs: Laboratory Results - last 24 hr 11/09/21 05:03 Hgb 9.6 L Hct 29.2 L OB - PN A/P Plan day: 1 Plan: routine care Time Spent With Patient Time: Total time spent is greater than 50% in coordination of care (as documented) at patient's floor/unit and/or counseling patient: Exam : Bimanual exam- vagina & uterus: other (Uterus firm, nt @U)
[2021-11-09 08:00] VITALS: BP 125/64; PULSE 78; RESP 18; TEMP 36.8
[2021-11-09] MEDS: DOCUSATE SODIUM 100 MG CAPSULE PO ×2 (08:23→16:59)
[2021-11-09] MEDS: IBUPROFEN 600 MG TABLET PO ×4 (08:23→22:50)
[2021-11-09] MEDS: POLYSACCHARIDE IRON COMPLEX 150 MG CAPSULE PO ×2 (08:23→16:59)
--- NOTE | 2021-11-09 09:18 | WPDANLDPN2 ---
Anes-Prog Note L&D Date/Time: 11/09/21 09:18 Comfortable throughout: labor Neuraxial method: epidural Epidural/Spinal procedure site: clean & non-tender Neuro status: Neuro function grossly intact. Cardiovascular status: normal Respiratory status: normal Airway patency: baseline Mental status: baseline Post-Op hydration status: normal Vital Signs: Last Vital Signs Temp 98.2 F 11/09/21 08:00 Pulse 78 11/09/21 08:00 Resp 18 11/09/21 08:00 BP 125/64 11/09/21 08:00 Pulse Ox 97 11/09/21 04:45 Pain score (VAS): 0 I/O: Intake & Output 11/08/21 11/09/21 11/09/21 23:59 07:59 15:59 Intake Total 1000 Output Total 50 Balance 1000 -50 Post-procedural complaints: none Patient feedback: Patient satisfied with anesthetic care. Other findings: pain with delivery. comfortable with labor
[2021-11-09 12:30] VITALS: BP 146/84; PULSE 111; RESP 18; TEMP 36.6
--- NOTE | 2021-11-09 14:07 | PC.NURSE ---
This patient, Manuela Kwon, was received from PACU at 1407. Patient/family oriented to unit policies and routines
--- NOTE | 2021-11-09 15:30 | PCCCNOTE ---
Received referral. Met with pt. and her friend at bedside. Pt. lives alone and will return home alone with . She has everything she needs to care for at return home. She states having support from siblings, her father and friends. She has transportation home at discharge. She does not have any other children and denies any history with DCFS. She states father of baby has not been involved since she was 11 weeks as it was too much for him . She states having no concerns or needs regarding this situation. 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 Spoke to RN regarding above and she indicates bonding between pt. and is improving. Provided pt. with additional resources and counseling resources. She accepted same. Encouraged she contact any/all of interest. No other care coordination needs indicated at this time.
[2021-11-09 16:00] VITALS: BP 126/73; PULSE 82; RESP 18; TEMP 36.6
[2021-11-09] MEDS: BENZOCAINE 20% AER SPR (*SP) 56 GM CAN 1 SPRAY TOPICAL ×2 (16:59)
[2021-11-09 19:32] VITALS: BP 136/89; PULSE 88; RESP 16; TEMP 37.1
[2021-11-10] MEDS: IBUPROFEN 600 MG TABLET PO (05:17)
[2021-11-10 07:16] VITALS: BP 119/60; PULSE 75; RESP 17; TEMP 36.1; O2SAT 99
--- NOTE | 2021-11-10 07:23 | PC.NURSE ---
On 11/10/21, the student, Micheline Chambers, provided care and completed [facility] documentation on this patient. I have reviewed the student's documentation and agree with the findings.
--- NOTE | 2021-11-10 07:42 | PM.OBPNVD ---
OB - PN: Subj Subjective Date/time seen: 11/10/21 07:42 Patient comments: no complaints and pain well controlled baby status: doing well [place] feeding status: exclusively bottle feeding OB - PN: Obj Data Labs CBC & Chem 7: 11/09/21 05:03 OB - PN A/P Plan day: 2 Plan: routine care, discharge home, follow up 6 weeks and other (Plans Nuvaring) Time Spent With Patient Time: Total time spent is greater than 50% in coordination of care (as documented) at patient's floor/unit and/or counseling patient: Exam : Bimanual exam- vagina & uterus: other (Uterus firm, nt @U)
[2021-11-10] MEDS: DOCUSATE SODIUM 100 MG CAPSULE PO (07:58)
[2021-11-10] MEDS: POLYSACCHARIDE IRON COMPLEX 150 MG CAPSULE PO (07:58)
[2021-11-10] MEDS: BENZOCAINE 20% AER SPR (*SP) 56 GM CAN 1 SPRAY TOPICAL (07:59)
[2021-11-10] MEDS: WITCH HAZEL 40 PADS 1 PAD TOPICAL (07:59)
--- NOTE | 2021-11-10 09:19 | PC.NURSE ---
Self care and infant care discharge instructions given including follow up visit date and time. Very pleasant and cooperative. States that she has plenty of help after discharge. Bonding well with baby. No questions or concerns verbalized.
== END 2021-11-10 11:32 | disposition home or self-care (01) | DRG 560 ==
LOC: ANHLDR 22:00 → ANHOB2 11-09 00:08
PROVIDERS: Admitting Provider Obstetrics & Gynecology Gynecology; Visit Provider Obstetrics & Gynecology Gynecology
DX: O36.8330 Maternal care for abnormalities of the fetal heart rate or rhythm, third trimester, not applicable or unspecified (principal); Z37.0 Single live birth; Z3A.39 39 weeks gestation of pregnancy; O70.1 Second degree perineal laceration during delivery
CPT/HCPCS: 36415; 85014; 85018; 85025; 86592; 86850; 86900; 86901; A9270; J2405; J2590; J2795; J7120

== ENCOUNTER 2021-11-17 17:24 | Emergency (ER) | payer OTHER, SELFPAY ==
[2021-11-17 17:35] VITALS: BP 137/86; PULSE 114; RESP 20; TEMP 36.4; O2SAT 95
--- NOTE | 2021-11-17 18:03 | ED.ABDPAIN ---
HPI - Abdominal Pain General Chief Complaint: Abdominal Pain Stated Complaint: tired,dizzy, stomach pain, passing blood clots Time Seen by Provider: 11/17/21 18:03 Source: patient Mode of arrival: ambulatory History of Present Illness HPI narrative: 26-year-old with no significant past medical history delivered a healthy male boy on 11/08/2021 after being induced. No complications during . She delivered at [facility] without any complications. patient had an episiotomy. No history of bleeding disorders. No undue bleeding in the immediate period. The patient presents to the ER today with -- low-grade fever for the past 2-3 days -- suprapubic abdominal pain for the past 2-3 days -- past two 3 cm clots today. MD elicited complaint: abdominal pain Pertinent past history: none Onset (ago): day(s) ( Three days) Pain Consistency: constant Location: suprapubic Severity: mild Quality: cramping Radiation: none Exacerbating factors: nothing Relieving factors: nothing Associated symptoms: denies other symptoms and fever Related Data Hx Last Menstrual Period: delivered on 11/08/2021. Patient : No Home Medications Medication Instructions Recorded Confirmed ergocalciferol (vitamin D2) 1,250 mcg PO USEASDIRECTD 08/16/21 10/15/21 Allergies Allergy/AdvReac Type Severity Reaction Status Date / Time fluconazole Allergy Unknown Unknown Verified 09/02/21 05:00 Review of Systems Review of Systems: All systems reviewed & are unremarkable except as noted in HPI and below Constitutional: Constitutional: Reports as per HPI, Reports no additional constitutional complaints and Reports fever(s) Comments: Grade fever with a maximum of 99.9 off and on for the past 3 days. Eyes: Eyes: Reports as per HPI and Reports no additional eye complaints ENT: Reports system reviewed and no additional complaints, except as documented Cardiovascular: Cardiovascular: Reports as per HPI and Reports no additional cardiovascular complaints Respiratory: Respiratory: Reports as per HPI and Reports no additional respiratory complaints Gastrointestinal: Gastrointestinal: Reports as per HPI, Reports no additional gastrointestinal complaints and Reports abdominal pain Genitourinary: Genitourinary: Reports no additional female genitourinary complaints and Reports abnormal vaginal bleeding Comments: She has been having gradually decreasing vaginal bleeding for the past 2 weeks. No foul smelling discharge. today the patient passed to clots each measuring 3 cm. Musculoskeletal: Musculoskeletal: Reports no additional musculoskeletal complaints and Reports as per HPI Integumentary/Breasts: Skin/Breast: Reports system reviewed and no additional complaints, except as docu and Reports as per HPI Neurologic: Reports system reviewed and no additional complaints, except as documented Psychiatric: Psychiatric: Reports no additional psychiatric complaints and Reports as per HPI Endocrine: Endocrine: Reports no additional endocrine complaints and Reports as per HPI Hematologic/Lymphatic: Hematologic/Lymphatic: Reports no additional hematologic/lymphatic complaints Allergic/Immunologic: Allergic/Immunologic: Reports no additional allergic/immunologic complaints and Reports as per HPI PMFSH Past Medical History Medical History (Updated 11/17/21 @ 19:16 by Vlad Cedeno MD) Migraine Nephrolithiasis Normal delivery at term Surgical History Surgical History History of tonsillectomy and adenoidectomy Family History Family History Father Migraines Social History Social History Smoking status: Former smoker Tobacco type: e-cigarettes/vaping Alcohol intake: former Substance use: never Gender identity (if verbalized by the patient): Female Melania
[2021-11-17 18:32] LABS: Basophils Absolute Auto 0.03 K/mm3 (0.00-0.10); Basophils Percent Auto 0.3 % (0.0-1.0); Eosinophils Absolute Auto 0.07 K/mm3 (0.02-0.50); Eosinophils Percent Auto 0.8 % (1.0-6.0); Hematocrit 38.2 % (35.0-49.0); Hemoglobin 12.2 g/dL (12.0-15.0); Immature Granulocyte Absolute 0.05 K/mm3 (0.00-0.00); Immature Granulocyte Percent A 0.6 % (0.0-0.0); Lymphocytes Absolute Auto 2.02 K/mm3 (1.10-4.50); Lymphocytes Percent Auto 23.1 % (18.0-42.0); Mean Corpuscular HGB Conc 31.9 g/dL (32.0-36.0); Mean Corpuscular Hemoglobin 26.9 pg (27.0-31.0); Mean Corpuscular Volume 84.3 fL (78.0-102.0); Mean Platelet Volume 9.3 fl (9.2-11.8); Monocytes Absolute Auto 0.53 K/mm3 (0.10-0.90); Monocytes Percent Auto 6.1 % (2.0-11.0); Neutrophils Percent Auto 69.1 % (50.0-70.0); Platelet Count Result 367 K/mm3 (150-420); Red Blood Count 4.53 M/mm3 (4.20-5.40); Red Cell Distribution Width 13.7 % (11.6-14.4); White Blood Count 8.7 K/mm3 (4.8-10.8)
[2021-11-17 18:40] LABS: Add Urine Microscopic? YES; Appearance Urine Cloudy (Clear); Bilirubin Urine Negative (Negative); Blood Urine 3+ (Negative); Color Urine Yellow (Yellow); Glucose Urine UA Negative (Negative); Ketones Urine Trace (Negative); Leukocyte Esterase Ur 3+ LEU/UL (Negative); Nitrate Urine Negative (Negative); Protein Urine 2+ (Negative); Specific Grav Ur 1.025 (1.010-1.020); Urobilinogen Urine 0.2 mg/dL (0.2-1.0)
[2021-11-17 18:46] LABS: INR 1.1; Partial Thromboplastin Time 29.9 SEC (23.90-30.70); Prothrombin Time 11.3 Seconds (9.50-12.10)
[2021-11-17 18:46] LABS: Bacteria Urine 1+ /hpf; RBC Urine 51-75 /hpf (0-2); Squamous Epithelial Cell Urine Few /hpf (Few); WBC Urine >75 /hpf (0-3)
[2021-11-17 18:52] LABS: Alanine Aminotransferase 29 U/L (14-59); Albumin Level 3.2 g/dL (3.4-5.0); Alkaline Phosphatase 135 U/L (46-116); Anion Gap 13 mmol/L (8-16); Aspartate Amino Transferase 15 U/L (15-37); Bilirubin,Total 0.5 mg/dL (0.00-1.00); Blood Urea Nitrogen 10 mg/dL (7-18); Carbon Dioxide 22 mmol/L (21-32); Chloride 107 mmol/L (98-108); Estimated CRCL calculation 143 ml/min; Estimated Glomerular Filt Rate > 60; Glucose 91 mg/dL (70-99); Lipase 41 U/L (73-393); Osmolality Calculated 293 mOsm/kg (285-295); Potassium 4.1 mmol/L (3.5-5.1); Sodium 142 mmol/L (136-145); Total Protein 7.2 g/dL (6.4-8.2)
[2021-11-17 19:04] LABS: Lactic Acid Reflex < 0.3 mmol/L (0.4-2.0)
--- NOTE | 2021-11-17 19:08 | PC.NURSE ---
report to nile stephen
[2021-11-17] MEDS: AMOXICILLIN/CLAVULANATE K 875-125 MG TAB 1 TABLET PO (19:32)
[2021-11-17 19:33] VITALS: BP 136/83; PULSE 78; RESP 18; TEMP 36.6; O2SAT 100
== END 2021-11-17 19:39 | disposition home or self-care (01) ==
PROVIDERS: Emergency Provider Internal Medicine Critical Care Medicine; PCP Physician Assistant
DX: O72.2 Delayed and secondary postpartum hemorrhage (principal); Z37.0 Single live birth; N30.00 Acute cystitis without hematuria
CPT/HCPCS: 36415; 80053; 81001; 83605; 83690; 84702; 85025; 85610; 85730; 87086; 87088; 99283; A9270

== ENCOUNTER 2022-03-15 09:13 | Outpatient (CLI) | payer OTHER, SELFPAY ==
--- NOTE | ~2022-03-15 | MR_ITS ---
EXAMINATION: MR ankle LT wo con DATE: 03/15/2022 11:29 INDICATION: Left ankle pain post twisting injury TECHNIQUE: Magnetic resonance imaging (MRI) of the left ankle was performed without intravenous contr ast. Sequences included sagittal, coronal, and axial proton-density weighted fast spin echo without a nd with fat saturation. COMPARISON: None. FINDINGS: Medial ankle ligaments: There is edema throughout the deep deltoid ligament with subtle disorganization of a few of the more caudal ligament fibers consistent with moderate grade sprain. The superficial deltoid ligament appear s to remain normal. There is mild thickening and increased signal at the sustentaculum tyree insertion of the superomedial component of the spring ligament complex. The medial plantar oblique and infra p lantar lateral components of the spring ligament complex remain normal. Lateral ankle ligaments: The anterior and posterior inferior tibiofibular ligaments are normal. There is prominent thickening with increased signal and lax appearance to the ligament fibers of the anterior talofibular ligament consistent with partial tear/moderate grade sprain. Additional less severe partial tear of the calcan eofibular ligament also with increased signal and mild thickening. Increased signal without thickenin g or architectural distortion of the posterior talofibular ligament consistent with low-grade sprain. Tendons: Achilles tendon is normal. Fusion from thickening and mild increased intrasubstance signal of the per oneus longus tendon at the level of the retromalleolar groove consistent with mild tendinopathy witho ut discrete tear. The peroneus brevis tendon is normal. The tibialis anterior and extensor hallucis l ongus and extensor digitorum longus tendons are normal. The tibialis posterior, flexor digitorum long us and flexor hallucis longus tendons are normal. Plantar fascia: Plantar aponeurosis is normal. Bones/other: There is mild marrow edema at the posteromedial aspect of the talar dome and at the posterolateral ma rgin of the medial malleolus which could be due to either bone contusions or reactive edema related t o the deep deltoid ligament sprain. Additional mild marrow edema at the sustentaculum tyree similarly either related to bone contusion or reactive edema related to the partial tear of the superomedial co mponent of the spring ligament complex. Small focus of marrow edema at the lateral malleolus at the c audal aspect of the retromalleolar groove. Bone marrow signal is otherwise normal. No fracture. Fluid: Small left ankle joint effusion with fluid collecting both at the anterior and posterior recesses. IMPRESSION: 1. Low to moderate grade sprains of the deep deltoid and superomedial component of the spring ligamen t complex at the medial ankle and hindfoot and of the anterior talofibular, calcaneofibular and to le sser degree posterior talofibular ligaments at the lateral ankle. 2. Mild tendinopathy without discrete tear of the peroneus longus tendon at the level of the retromal leolar groove Reviewed, dictated and finalized at location A. IMPRESSION: 1. Low to moderate grade sprains of the deep deltoid and superomedial component of the spring ligament complex at the medial ankle and hindfoot and of the ant erior talofibular, calcaneofibular and to lesser degree posterior talofibular l igaments at the lateral ankle. 2. Mild tendinopathy without discrete tear of the peroneus longus tendon at the level of the retromalleolar groove
== END 2022-03-15 09:14 | disposition home or self-care (01) ==
LOC: CHSIMG 09:15
PROVIDERS: PCP Family Medicine; Visit Provider Registered Nurse
DX: M25.572 Pain in left ankle and joints of left foot (principal)
CPT/HCPCS: 73721

== ENCOUNTER 2022-04-10 19:25 | Emergency (ER) | payer OTHER, SELFPAY ==
--- NOTE | ~2022-04-10 | XR_ITS ---
EXAMINATION: XR chest 1V portable Exam Date/Time: 04/10/2022 20:00 CDT HISTORY: chest pain-GENERAL,DYSPNEA,DIZZY,N/V,S/P OVERHEATED Comparison: 06/17/2020. RESULT: Lines, tubes, and devices: None. Lungs and pleura: Clear. Cardiomediastinal silhouette: Stable. Other: No acute osseous or upper abdominal finding. IMPRESSION: No acute cardiopulmonary process. Reviewed, dictated and finalized at location K.
--- NOTE | 2022-04-10 19:41 | ECG_ITS ---
Measurements Intervals [place] Rate: 102 P: 42 DE: 143 QRS: 62 QRSD: 84 T: 41 QT: 342 QTc: 447 Interpretive Statements SINUS TACHYCARDIA BASELINE ARTIFACT- III BORDERLINE ECG Electronically Signed On 04-10-2022 20:54:18 CDT by Solitario Raymundo D.O.
[2022-04-10 19:45] VITALS: BP 128/60; PULSE 107; RESP 18; TEMP 36.6; O2SAT 98
--- NOTE | 2022-04-10 19:49 | ED.GENADULT ---
HPI - General Adult General Chief complaint: Chest Pain Stated complaint: overheated at work, chest pain History of Present Illness HPI narrative: Manuela is a 26F with a PMH of post depression that presented to the ED with concerns of chest pain. She works in a non-air conditioned [employer]. She was working there when around noon she became overheated. She was hot, became lightheaded and very nauseated. She threw up several times (no blood in vomit) and went home. She has continued to have sharp right sided chest pain and feel weak. There is no SOB or syncope. Related Data Home Medications Medication Instructions Recorded Confirmed citalopram 20 mg tablet 20 mg PO DAILY 04/10/22 04/10/22 Allergies Allergy/AdvReac Type Severity Reaction Status Date / Time fluconazole Allergy Unknown Unknown Verified 04/10/22 19:43 Review of Systems Review of Systems: All systems reviewed & are unremarkable except as noted in HPI and below [facility] Past Medical History Medical History (Updated 04/10/22 @ 21:12 by Boris Keith DO) Migraine Nephrolithiasis Normal delivery at term Surgical History Surgical History History of tonsillectomy and adenoidectomy Family History Family History Father Migraines Social History Social History Smoking status: Former smoker Tobacco type: e-cigarettes/vaping Alcohol intake: former Substance use: never Gender identity (if verbalized by the patient): Female Spiritual care concerns: No Exam Const: General: healthy appearing, no acute distress and alert; No confusion HENMT: Head: normal to inspection Ears: external ears normal General nose exam: Normal external nose present Face and sinus: normal facial exam Mouth: Yes Normal oral and palatal mucosa present Eyes: Conjunctivae: conjunctivae normal Pupils: Equal, round and reactive pupils present Neck: Neck: normal visual inspection Chest: Chest palpation & inspection: normal inspection of the chest Other: TTP 1 inch lateral to the sternum bilaterally Resp: Effort & Inspection: normal respiratory effort and not labored Auscultation: clear to auscultation bilaterally Cardio: Rate: regular rate Rhythm: regular rhythm GI: Inspection: non-distended GI Palp: Yes Soft to palpation, No Tenderness to palpation present (GI) and No Guarding due to palpation present (GI) Auscultation: normal bowel sounds Skin: General skin exam: normal color Rashes: no rashes Neuro: General: patient oriented x3 Cranial nerves: Yes Nystagmus not present Psych: Mental Status: mental status grossly normal Affect: normal affect Course Course Emergency Course: EKG showed sinus tachycardia with a rate of 102 with no ectopy or ST elevation or depression EXAMINATION:? XR chest 1V portable Exam Date/Time:? 04/10/2022 20:00 CDT HISTORY: chest pain-GENERAL,DYSPNEA,DIZZY,N/V,S/P OVERHEATED ? Comparison:? 06/17/2020. RESULT: Lines, tubes, and devices:? None. Lungs and pleura:? Clear. Cardiomediastinal silhouette:? Stable. Other:? No acute osseous or upper abdominal finding. IMPRESSION: No acute cardiopulmonary process. Given toradol and fluids After the fluids and toradol she felt much better. Vital Signs Vital signs: Vital Signs Temperature 98 F 04/10/22 19:45 Pulse Rate 107 H 04/10/22 19:45 Respiratory Rate 18 04/10/22 19:45 Blood Pressure 128/60 04/10/22 19:45 Pulse Oximetry 98 04/10/22 19:45 Oxygen Delivery Room Air 04/10/22 19:45 Temperature 97.7 F 04/10/22 22:30 Pulse Rate 99 04/10/22 22:30 Respiratory Rate 18 04/10/22 22:30 Blood Pressure 125/65 04/10/22 22:30 Pulse Oximetry 98 04/10/22 22:30 Oxygen Delivery Room Air 04/10/22 22:30 Medical Decision Making Vital Signs Vital Signs: Marcelle
[2022-04-10] MEDS: SODIUM CHLORIDE 0.9% IV 1,000 ML 999 ML IV CONT ×2 (20:09→21:08)
[2022-04-10 20:12] LABS: Basophils Absolute Auto 0.03 K/mm3 (0.00-0.10); Basophils Percent Auto 0.4 % (0.0-1.0); Eosinophils Absolute Auto 0.06 K/mm3 (0.02-0.50); Eosinophils Percent Auto 0.7 % (1.0-6.0); Hematocrit 33.7 % (35.0-49.0); Hemoglobin 10.8 g/dL (12.0-15.0); Immature Granulocyte Absolute 0.02 K/mm3 (0.00-0.00); Immature Granulocyte Percent A 0.2 % (0.0-0.0); Lymphocytes Absolute Auto 1.96 K/mm3 (1.10-4.50); Lymphocytes Percent Auto 23.6 % (18.0-42.0); Mean Corpuscular Hemoglobin 27.2 pg (27.0-31.0); Mean Corpuscular Volume 84.9 fL (78.0-102.0); Mean Platelet Volume 9.6 fl (9.2-11.8); Monocytes Absolute Auto 0.89 K/mm3 (0.10-0.90); Monocytes Percent Auto 10.7 % (2.0-11.0); Neutrophils Absolute Auto 5.3 K/mm3 (1.7-7.2); Neutrophils Percent Auto 64.4 % (50.0-70.0); Platelet Count Result 291 K/mm3 (150-420); Red Blood Count 3.97 M/mm3 (4.20-5.40); Red Cell Distribution Width 12.5 % (11.6-14.4); White Blood Count 8.3 K/mm3 (4.8-10.8)
[2022-04-10 20:19] VITALS: BP 122/62; PULSE 98; RESP 17; O2SAT 99
[2022-04-10 20:36] LABS: Alanine Aminotransferase 38 U/L (14-59); Alkaline Phosphatase 106 U/L (46-116); Anion Gap 8 mmol/L (8-16); Aspartate Amino Transferase 16 U/L (15-37); Bilirubin,Total 0.3 mg/dL (0.00-1.00); Blood Urea Nitrogen 10 mg/dL (7-18); Calcium 8.3 mg/dL (8.5-10.1); Carbon Dioxide 26 mmol/L (21-32); Chloride 108 mmol/L (98-108); Creatine Kinase 154 U/L (26-192); Estimated CRCL calculation 147 ml/min; Estimated Glomerular Filt Rate > 60; Glucose 113 mg/dL (70-99); Osmolality Calculated 294 mOsm/kg (285-295); Potassium 3.6 mmol/L (3.5-5.1); Sodium 142 mmol/L (136-145); Total Protein 6.3 g/dL (6.4-8.2); Troponin I 5.9 ng/L (0.00-60.4)
[2022-04-10 20:45] VITALS: BP 123/58; PULSE 98; RESP 17; O2SAT 99
[2022-04-10] MEDS: KETOROLAC 15 MG/ML VIAL (*BKC) IV PUSH (20:57)
[2022-04-10 22:30] VITALS: BP 125/65; PULSE 99; RESP 18; TEMP 36.5; O2SAT 98
== END 2022-04-10 22:32 | disposition home or self-care (01) ==
PROVIDERS: Emergency Provider Family Medicine; PCP Family Medicine
DX: E86.0 Dehydration (principal); M94.0 Chondrocostal junction syndrome [Tietze]
CPT/HCPCS: 36415; 71045; 80053; 82550; 84484; 85025; 93005; 96361; 96374; 99284; J1885; J7030

== ENCOUNTER 2022-06-25 19:33 | Emergency (ER) | payer OTHER, SELFPAY ==
--- NOTE | 2022-06-25 19:47 | ECG_ITS ---
Measurements Intervals [place] Rate: 83 P: 31 NH: 142 QRS: 69 QRSD: 102 T: 52 QT: 366 QTc: 431 Interpretive Statements SINUS RHYTHM NORMAL ELECTROCARDIOGRAM COMPARED TO ECG 04/10/2022 19:47:48 NO SIGNIFICANT CHANGE Electronically Signed On 06-26-2022 10:21:50 CDT by Oneal Denise M.D.
[2022-06-25 19:49] VITALS: BP 141/83; PULSE 100; RESP 18; TEMP 37.4; O2SAT 100
[2022-06-25 20:15] VITALS: BP 125/65; PULSE 91; RESP 20; O2SAT 100
[2022-06-25] MEDS: SODIUM CHLORIDE 0.9% IV 1,000 ML 999 ML IV CONT (20:20)
--- NOTE | 2022-06-25 20:31 | ED.DIZZY ---
HPI - Dizziness General Chief Complaint: Dizziness Stated Complaint: dizzy/headfog/felt like she might pass out Source: patient Mode of arrival: ambulatory Limitations: no limitations History of Present Illness HPI Narrative: this is a 26-year-old female with no significant significant past medical history that presents with some dizziness and feeling lightheaded headed with which she describes as brain fog that started earlier today patient states that she been on a diet plan that she had difficulty describing but states that she has been drinking plenty of water. Currently there is no nausea vomiting no chest pain no fever chills no shortness of breath no nasal congestion no sinus pressure no dysuria no hematuria no diarrhea constipation no abdominal pain. Patient states that she had increased heart rate earlier today, which she checked on an Apple watch although she denied having any sensation of rapid heart rate or palpitations. MD elicited complaint: dizziness and lightheadedness Onset (ago): hour(s) Timing: gradual onset Severity: mild Description: sense of movement History of similar symptoms: No Related Data Home Medications Medication Instructions Recorded Confirmed etonogestrel 0.12 mg-ethinyl 1 vag ring vaginal DIRECTED 06/25/22 06/25/22 estradiol 0.015 mg/24 hr vaginal ring (EluRyng) Allergies Allergy/AdvReac Type Severity Reaction Status Date / Time fluconazole Allergy Unknown Unknown Verified 06/25/22 19:47 Review of Systems Review of Systems: All systems reviewed & are unremarkable except as noted in HPI and below PMFSH Past Medical History Medical History Migraine Nephrolithiasis Normal delivery at term Surgical History Surgical History History of tonsillectomy and adenoidectomy Family History Family History Father Migraines Social History Social History Smoking status: Former smoker Tobacco type: e-cigarettes/vaping Alcohol intake: former Substance use: never Gender identity (if verbalized by the patient): Female Spiritual care concerns: No Exam Const: General: healthy appearing, no acute distress and alert Limitations: no limitations HENMT: Head: normal to inspection Face and sinus: normal facial exam Mouth: Yes Normal oral and palatal mucosa present Eyes: Conjunctivae: conjunctivae normal Pupils: Equal, round and reactive pupils present EOM: EOMs intact bilaterally Neck: Neck: normal visual inspection, no lymphadenopathy and no meningeal signs Chest: Chest palpation & inspection: normal inspection of the chest Resp: Effort & Inspection: normal respiratory effort Auscultation: clear to auscultation bilaterally Cardio: Rate: regular rate Rhythm: regular rhythm GI: Auscultation: normal bowel sounds Back/Spine/Pelvis: Back: no CVA tenderness Skin: General skin exam: normal color Rashes: no rashes Wounds: no wounds Extrem: General: normal to inspection Psych: Mental Status: mental status grossly normal Affect: normal affect Course Course Emergency Course: An EKG performed and showed normal sinus rhythm heart rate currently down to 91 is regular, labs reviewed with patient patient received IV fluids. Vital Signs Vital signs: Vital Signs Temperature 37.4 C 06/25/22 19:49 Pulse Rate 100 06/25/22 19:49 Respiratory Rate 18 06/25/22 19:49 Blood Pressure 141/83 H 06/25/22 19:49 Pulse Oximetry 100 06/25/22 19:49 Oxygen Delivery Room Air 06/25/22 19:49 Temperature 37.4 C 06/25/22 19:49 Pulse Rate 91 06/25/22 20:15 Respiratory Rate 20 06/25/22 20:15 Blood Pressure 125/65 06/25/22 20:15 Pulse Oximetry 100 06/25/22 20:15 Oxygen Delivery Room Air 06/25/22 20:15 Critical Care
[2022-06-25 20:35] LABS: Basophils Absolute Auto 0.03 K/mm3 (0.00-0.10); Basophils Percent Auto 0.3 % (0.0-1.0); Eosinophils Absolute Auto 0.06 K/mm3 (0.02-0.50); Eosinophils Percent Auto 0.6 % (1.0-6.0); Hemoglobin 12.6 g/dL (12.0-15.0); Immature Granulocyte Absolute 0.03 K/mm3 (0.00-0.00); Immature Granulocyte Percent A 0.3 % (0.0-0.0); Lymphocytes Absolute Auto 2.59 K/mm3 (1.10-4.50); Lymphocytes Percent Auto 25.1 % (18.0-42.0); Mean Corpuscular HGB Conc 32.3 g/dL (32.0-36.0); Mean Corpuscular Hemoglobin 26.5 pg (27.0-31.0); Mean Corpuscular Volume 82.1 fL (78.0-102.0); Mean Platelet Volume 9.7 fl (9.2-11.8); Monocytes Absolute Auto 0.72 K/mm3 (0.10-0.90); Neutrophils Absolute Auto 6.9 K/mm3 (1.7-7.2); Neutrophils Percent Auto 66.7 % (50.0-70.0); Platelet Count Result 351 K/mm3 (150-420); Red Blood Count 4.75 M/mm3 (4.20-5.40); Red Cell Distribution Width 12.7 % (11.6-14.4); White Blood Count 10.3 K/mm3 (4.8-10.8)
[2022-06-25 20:47] LABS: Alanine Aminotransferase 23 U/L (14-59); Albumin Level 3.6 g/dL (3.4-5.0); Alkaline Phosphatase 129 U/L (46-116); Anion Gap 8 mmol/L (8-16); Aspartate Amino Transferase 11 U/L (15-37); Bilirubin,Total 0.2 mg/dL (0.00-1.00); Blood Urea Nitrogen 11 mg/dL (7-18); Calcium 8.6 mg/dL (8.5-10.1); Carbon Dioxide 27 mmol/L (21-32); Chloride 105 mmol/L (98-108); Estimated CRCL calculation 128 ml/min; Estimated Glomerular Filt Rate > 60; Glucose 75 mg/dL (70-99); Osmolality Calculated 288 mOsm/kg (285-295); Potassium 3.5 mmol/L (3.5-5.1); Sodium 140 mmol/L (136-145); Total Protein 7.5 g/dL (6.4-8.2)
[2022-06-25] MEDS: MECLIZINE HCL 25 MG TABLET PO (20:55)
[2022-06-25 21:20] VITALS: BP 122/70; PULSE 74; RESP 20; O2SAT 100
== END 2022-06-25 21:27 | disposition home or self-care (01) ==
PROVIDERS: Emergency Provider Emergency Medicine; PCP Family Medicine
DX: R42 Dizziness and giddiness (principal)
CPT/HCPCS: 36415; 80053; 85025; 93005; 96360; 99283; A9270; J7030

== ENCOUNTER 2022-08-26 11:08 | Emergency (ER) | payer OTHER, SELFPAY ==
--- NOTE | ~2022-08-26 | CT_ITS ---
EXAMINATION: CT abdomen pelvis w con DATE: 08/26/2022 13:50 INDICATION: Right upper quadrant and right lower quadrant abdominal pain TECHNIQUE: Computed tomography (CT) of the abdomen and pelvis was performed with 100 CC Omnipaque 350 intravenous contrast. Automated exposure control and iterative reconstruction technique were employe d. Exam dose: 942.45 mGy-cm total exam DLP. COMPARISON: 12/10/2020 CT abdomen pelvis FINDINGS: There is mild posterior dependent right lower lobe atelectasis, minimal dependent left lowe r lobe atelectasis. Normal heart size. No pericardial or pleural effusion. The liver, gallbladder, bile ducts, spleen, pancreas, pancreatic duct, and adrenal glands and kidneys appear normal. Normal caliber of the abdominal aorta. No intraperitoneal or retroperitoneal or pelvic mass lesion or adenopathy or ascites. The urinary bladder, uterus and ovaries are unremarkable. See the appendix is retrocecal. No CT evidence of appendicitis. There is gaseous distention throughout most of the colon. No bowel obstruction or intraperitoneal bailee e air. Very small fat-containing umbilical hernia. Included skeletal structures are unremarkable. IMPRESSION: Normal retrocecal appendix Reviewed, dictated and finalized at [facility]. Reviewed, dictated and finalized at location B. 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
[2022-08-26 11:25] VITALS: BP 112/61; PULSE 89; RESP 16; TEMP 36.4; O2SAT 98
[2022-08-26 11:36] VITALS: BP 112/61; PULSE 89; RESP 20; TEMP 36.4; O2SAT 98
--- NOTE | 2022-08-26 12:15 | ED.GENADULT ---
HPI - General Adult General Chief complaint: Abdominal Pain Stated complaint: ABD PAIN History of Present Illness HPI narrative: The patient is an otherwise healthy 27-year-old who is currently on her menstrual cycle. No significant past medical history. No prior abdominal operations. Since midnight last night, for the last 12 hours, the patient has had right lower quadrant and right periumbilical abdominal discomfort, constant in nature, waxing and waning in intensity but always present. Associated with nausea but no vomiting. Has had decreased oral intake since that time. Loose diarrheal stool noted. No urinary symptoms. No fevers or chills or diaphoresis. No URI symptoms. Currently on her menstrual cycle. No history of ovarian cysts. Related Data Home Medications Medication Instructions Recorded Confirmed etonogestrel 0.12 mg-ethinyl 1 vag ring vaginal DIRECTED 06/25/22 08/26/22 estradiol 0.015 mg/24 hr vaginal ring (EluRyng) Allergies Allergy/AdvReac Type Severity Reaction Status Date / Time fluconazole Allergy Unknown Unknown Verified 08/26/22 11:46 Review of Systems Review of Systems: All systems reviewed & are unremarkable except as noted in HPI and below Constitutional: Constitutional: Reports no additional constitutional complaints, Reports anorexia, Denies body ache(s), Denies chills, Denies excessive sweating, Denies fatigue, Denies fever(s), Denies frequent falls, Denies headache(s), Denies malaise and Reports poor appetite Eyes: Eyes: Reports no additional eye complaints, Denies blurry vision, Denies change in vision, Denies irritation, Denies itchy eyes and Denies photophobia ENT: Reports system reviewed and no additional complaints, except as documented, Reports Normal hearing present, Denies change in voice, Denies dysphagia, Denies vertigo, Denies dizziness, Denies ear discharge, Denies headache(s), Denies hearing loss, Denies hoarseness, Denies nasal congestion, Denies neck pain, Denies sinus pressure, Denies sore throat and Denies throat swelling Cardiovascular: Cardiovascular: Reports no additional cardiovascular complaints, Denies chest pain, Denies syncope, Denies rapid heart rate, Denies irregular heart rhythm, Denies leg edema, Denies dyspnea and Denies slow heart rate Respiratory: Respiratory: Reports no additional respiratory complaints, Denies cough, Denies dyspnea, Denies stridor and Denies wheezing Gastrointestinal: Gastrointestinal: Reports no additional gastrointestinal complaints, Reports abdominal pain, Denies melena, Denies hematochezia, Denies dysphagia, Reports diarrhea, Reports nausea and Denies vomiting Genitourinary: Genitourinary: Denies hematuria, Denies urinary frequency, Denies dysuria, Denies flank pain and Denies urinary urgency Musculoskeletal: Musculoskeletal: Reports no additional musculoskeletal complaints, Denies abnormal gait, Denies back pain, Denies myalgias, Denies arthralgias, Denies joint swelling, Denies limited range of motion, Denies muscle cramps, Denies muscle weakness, Denies neck pain and Denies numbness Integumentary/Breasts: Skin/Breast: Reports system reviewed and no additional complaints, except as docu, Denies breast pain, Denies change in pigmentation, Denies pruritus, Denies erythema and Denies wounds Neurologic: Reports system reviewed and no additional complaints, except as documented, Reports Normal hearing present, Denies Abnormal speech present, Denies abnormal gait, Denies confusion, Denies vertigo, Denies dizziness, Denies syncope, Denies frequent falls, Denies headache(s), Denies focal weakness, Denies numbness and Denies paresthesias Psychiatric: Psychiatric: Reports no additional psychiatric complaints and Denies confusion Endocrine: Endocrine: Reports no additional endocrine complaints, Denies cold intolerance, Denies excessive sweating, Denies fatigue and Denies heat intolerance Hematologic/Lymphatic: Hematologic/Lymphatic: Reports no
[2022-08-26 12:47] LABS: Basophils Absolute Auto 0.05 K/mm3 (0.00-0.10); Basophils Percent Auto 0.6 % (0.0-1.0); Eosinophils Absolute Auto 0.02 K/mm3 (0.02-0.50); Eosinophils Percent Auto 0.2 % (1.0-6.0); Hematocrit 43.2 % (35.0-49.0); Hemoglobin 12.3 g/dL (12.0-15.0); Immature Granulocyte Absolute 0.03 K/mm3 (0.00-0.00); Immature Granulocyte Percent A 0.4 % (0.0-0.0); Lymphocytes Absolute Auto 1.83 K/mm3 (1.10-4.50); Lymphocytes Percent Auto 22.6 % (18.0-42.0); Mean Corpuscular HGB Conc 28.5 g/dL (32.0-36.0); Mean Corpuscular Hemoglobin 26.7 pg (27.0-31.0); Mean Corpuscular Volume 93.7 fL (78.0-102.0); Mean Platelet Volume 12.5 fl (9.2-11.8); Monocytes Absolute Auto 0.48 K/mm3 (0.10-0.90); Monocytes Percent Auto 5.9 % (2.0-11.0); Neutrophils Absolute Auto 5.7 K/mm3 (1.7-7.2); Neutrophils Percent Auto 70.3 % (50.0-70.0); Red Blood Count 4.61 M/mm3 (4.20-5.40); White Blood Count 8.1 K/mm3 (4.8-10.8)
[2022-08-26 12:53] LABS: Platelet Count Result 149 K/mm3 (150-420)
[2022-08-26 12:59] LABS: SPREG INTERNAL CONTROL Positive; Serum Qual hCG Negative
[2022-08-26 13:02] LABS: Alanine Aminotransferase 21 U/L (14-59); Albumin Level 3.7 g/dL (3.4-5.0); Alkaline Phosphatase 109 U/L (46-116); Amylase 22 U/L (25-115); Anion Gap 13 mmol/L (8-16); Aspartate Amino Transferase 23 U/L (15-37); Bilirubin,Total 0.5 mg/dL (0.00-1.00); Blood Urea Nitrogen 8 mg/dL (7-18); Calcium 8.7 mg/dL (8.5-10.1); Carbon Dioxide 21 mmol/L (21-32); Chloride 107 mmol/L (98-108); Estimated CRCL calculation 151 ml/min; Estimated Glomerular Filt Rate > 60; Glucose 89 mg/dL (70-99); Lipase 44 U/L (73-393); Osmolality Calculated 289 mOsm/kg (285-295); Potassium 4.8 mmol/L (3.5-5.1); Sodium 141 mmol/L (136-145)
[2022-08-26] MEDS: SODIUM CHLORIDE 0.9% IV 1,000 ML 999 ML IV CONT (13:05)
[2022-08-26] MEDS: ONDANSETRON INJ 4 MG/2 ML VIAL IV PUSH (13:07)
[2022-08-26] MEDS: MORPHINE SULFATE (*CRX) 4 MG/ML INJ IV PUSH (13:07)
[2022-08-26 13:11] LABS: Add Urine Microscopic? NO; Appearance Urine Clear (Clear); Bilirubin Urine Negative (Negative); Blood Urine Negative (Negative); Color Urine Yellow (Yellow); Glucose Urine UA Negative (Negative); Ketones Urine Negative (Negative); Leukocyte Esterase Ur Negative LEU/UL (Negative); Nitrate Urine Negative (Negative); Protein Urine Negative (Negative); Specific Grav Ur >= 1.030 (1.010-1.020); Urobilinogen Urine 0.2 mg/dL (0.2-1.0)
[2022-08-26 14:56] VITALS: BP 146/81; PULSE 88; RESP 20; TEMP 36.7; O2SAT 98
== END 2022-08-26 15:00 | disposition home or self-care (01) ==
PROVIDERS: Emergency Provider Emergency Medicine; PCP Family Medicine
DX: R10.11 Right upper quadrant pain (principal); R10.33 Periumbilical pain; Z87.891 Personal history of nicotine dependence
CPT/HCPCS: 36415; 74177; 80053; 81003; 82150; 83690; 84703; 85025; 96361; 96374; 96375; 99284; J2270; J2405; J7030; Q9967

== ENCOUNTER 2022-09-14 14:39 | Outpatient (CLI) | payer OTHER, SELFPAY ==
--- NOTE | ~2022-09-14 | US_ITS ---
EXAMINATION: US right upper quadrant DATE: 09/14/2022 15:12 INDICATION: RUQ PAIN TECHNIQUE: Multiple grayscale and Doppler ultrasound images of the right upper quadrant were obtained . COMPARISON: CT abdomen pelvis 08/26/2022. FINDINGS: The visualized portions of the pancreas are normal. The liver is mildly enlarged with lizandro l echogenicity and echotexture. No surface nodularity. Normal hepatopetal flow in the main portal vei n. The gallbladder is normal with no abnormal wall thickening, pericholecystic fluid or stones. The c ommon bile duct measures 2 mm. There was no sonographic Chou sign. IMPRESSION: Mild hepatomegaly, otherwise normal right upper quadrant ultrasound findings. Reviewed, dictated and finalized at location K. 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
== END 2022-09-14 14:40 | disposition home or self-care (01) ==
LOC: CHSIMG 14:41
PROVIDERS: PCP Family Medicine; Visit Provider Family Medicine
DX: R10.11 Right upper quadrant pain (principal); R16.0 Hepatomegaly, not elsewhere classified
CPT/HCPCS: 76705

== ENCOUNTER 2022-09-21 14:55 | Outpatient (CLI) | payer OTHER, SELFPAY ==
--- NOTE | ~2022-09-21 | US_ITS ---
EXAMINATION: US transvaginal DATE: 09/21/2022 16:08 INDICATION: Pelvic pain. TECHNIQUE: Multiple transabdominal and endovaginal sonographic images of the pelvis were obtained. COMPARISON: None. FINDINGS: Uterus: 6.8 x 4.7 x 3.5 cm. Retroverted and retroflexed uterus. Endometrial complex measures 5.2 mm. Right Ovary: 3.1 x 2.2 x 2.6 cm. Vascular flow is present. Left Ovary: 2.9 x 1.5 x 1.9 cm. Vascular flow is present. There is no free fluid in the pelvis. IMPRESSION: Normal pelvic sonogram findings. Reviewed, dictated and finalized at location K. 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
== END 2022-09-21 14:56 | disposition home or self-care (01) ==
LOC: CHSIMG 14:57
PROVIDERS: PCP Family Medicine; Visit Provider Family Medicine
DX: R10.9 Unspecified abdominal pain (principal)
CPT/HCPCS: 76830

== ENCOUNTER 2023-04-11 16:13 | Outpatient (CLI) | payer OTHER, SELFPAY ==
--- NOTE | ~2023-04-11 | CT_ITS ---
EXAMINATION: CT abdomen pelvis wo con DATE: 04/11/2023 16:58 INDICATION: Left flank pain. Nephrolithiasis. TECHNIQUE: Computed tomography (CT) of the abdomen and pelvis was performed without intravenous contr ast. Automated exposure control and iterative reconstruction technique were employed. The dose-length product was 324.85 mGy-cm. COMPARISON: 08/26/2022 FINDINGS: Small calcified right lower lobe nodule consistent with old granulomatous disease. Heart size is norm al. No pericardial or pleural effusion. Liver, gallbladder, spleen, pancreas and bilateral adrenal gl ands are normal. Stable appearance of several small phleboliths in the pelvis. Kidneys and ureters ar e normal with no urolithiasis, hydroureteronephrosis or perinephric/ureteral stranding. Atypical vers us craniocaudal orientation of a T-shaped IUD within the uterus with the base of the main stem of the IUD positioned more cephalad than the arms of the IUD. Bilateral adnexa are unremarkable. Bowels inc luding the appendix are normal. No free intraperitoneal gas or fluid. No pathologically enlarged abdo mike or pelvic lymphadenopathy. Bones are unremarkable. IMPRESSION: 1. No urolithiasis or other acute intra-abdominal/pelvic process. 2. Reversed craniocaudal orientation of a T-shaped IUD within the uterus. Reviewed, dictated and finalized at location A.
== END 2023-04-11 16:14 | disposition home or self-care (01) ==
PROVIDERS: PCP Family Medicine; Visit Provider Registered Nurse
DX: R10.9 Unspecified abdominal pain (principal); Z97.5 Presence of (intrauterine) contraceptive device
CPT/HCPCS: 74176

== ENCOUNTER 2023-04-17 13:18 | Outpatient (CLI) | payer OTHER, SELFPAY ==
--- NOTE | ~2023-04-17 | US_ITS ---
EXAMINATION: US pelvic complete w TV DATE: 04/17/2023 14:41 INDICATION: Left pelvic pain TECHNIQUE: Multiple transabdominal and endovaginal sonographic images of the pelvis were obtained. COMPARISON: None. FINDINGS: The uterus measures 7.7 x 4.7 x 3.4 cm. The endometrial complex measures 5 mm in thickness. Linear e chogenic and shadowing IUD within the endometrial canal. The right ovary measures 2.7 x 2.7 x 2.0 cm. There are few subcentimeter anechoic follicles at the periphery of the right ovary. The left ovary m easures 3.2 x 3.4 x 2.3 cm. There is small amount of likely physiologic free fluid in the cul-de-sac and about the right adnexa.. IMPRESSION: 1. IUD in expected position within the endometrial canal and small amount of likely physiologic free fluid. Otherwise unremarkable pelvic ultrasound. Reviewed, dictated and finalized at location B. IMPRESSION: 1. IUD in expected position within the endometrial canal and small amount of li zacarias physiologic free fluid. Otherwise unremarkable pelvic ultrasound.
== END 2023-04-17 13:19 | disposition home or self-care (01) ==
LOC: CHSIMG 13:19
PROVIDERS: PCP Family Medicine; Visit Provider Registered Nurse
DX: R10.2 Pelvic and perineal pain (principal); Z97.5 Presence of (intrauterine) contraceptive device
CPT/HCPCS: 76830; 76856

== ENCOUNTER 2023-04-29 22:21 | Emergency (ER) | payer OTHER, SELFPAY ==
[2023-04-29 22:28] VITALS: BP 121/77; PULSE 74; RESP 20; TEMP 36.5; O2SAT 99
--- NOTE | 2023-04-29 22:42 | ED.HA ---
HPI - Headache General Chief Complaint: Headache Stated Complaint: migraine h/a Source: patient and family Mode of arrival: ambulatory Limitations: no limitations History of Present Illness HPI Narrative: patient is a 27-year-old female with a typical migraine of the left retro-orbital area. It is a little worse and on resolving for the past 3 days. She has associated nausea. She just finished antibiotics for UTI. MD elicited complaint: headache and migraine Onset (ago): day(s) (3) Onset description: gradually Location: left and frontal Severity: similar to previous episodes Quality & Timing: throbbing, sharp, progressively worsening and similar to previous headaches Exacerbating factors: light and noise Relieving factors: dark room Context: occurred at rest and occurred with exertion/activity Associated symptoms: nausea Treatments prior to arrival: none Related Data Home Medications Medication Instructions Recorded Confirmed etonogestrel 0.12 mg-ethinyl 1 vag ring vaginal DIRECTED 06/25/22 04/29/23 estradiol 0.015 mg/24 hr vaginal ring (EluRyng) Allergies Allergy/AdvReac Type Severity Reaction Status Date / Time fluconazole Allergy Unknown Unknown Verified 08/26/22 11:46 Review of Systems Review of Systems: All systems reviewed & are unremarkable except as noted in HPI and below Constitutional: Constitutional: Reports no additional constitutional complaints Eyes: Eyes: Reports no additional eye complaints ENT: Reports system reviewed and no additional complaints, except as documented Cardiovascular: Cardiovascular: Reports no additional cardiovascular complaints Respiratory: Respiratory: Reports no additional respiratory complaints Gastrointestinal: Gastrointestinal: Reports no additional gastrointestinal complaints Genitourinary: Genitourinary: Reports no additional female genitourinary complaints Musculoskeletal: Musculoskeletal: Reports no additional musculoskeletal complaints Integumentary/Breasts: Skin/Breast: Reports system reviewed and no additional complaints, except as docu Neurologic: Reports system reviewed and no additional complaints, except as documented Psychiatric: Psychiatric: Reports no additional psychiatric complaints Endocrine: Endocrine: Reports no additional endocrine complaints Hematologic/Lymphatic: Hematologic/Lymphatic: Reports no additional hematologic/lymphatic complaints Allergic/Immunologic: Allergic/Immunologic: Reports no additional allergic/immunologic complaints PMFSH Past Medical History Medical History Migraine Nephrolithiasis Normal delivery at term Surgical History Surgical History History of tonsillectomy and adenoidectomy Family History Family History Father Migraines Social History Social History Smoking status: Former smoker Tobacco type: e-cigarettes/vaping Alcohol intake: former Substance use: never Living arrangements: with family Gender identity (if verbalized by the patient): Female Spiritual care concerns: No Exam Const: General: healthy appearing Nutritional Appearance: well nourished Orientation/consciousness: patient oriented x3 HENMT: Head: normal to inspection Ears: external ears normal Face/Nose/Sinus: Normal external nose present Eyes: Conjunctivae: conjunctivae normal Pupils: Equal, round and reactive pupils present EOM: EOMs intact bilaterally Neck: Neck: normal visual inspection Chest: Chest palpation & inspection: normal inspection of the chest Resp: Effort & Inspection: normal respiratory effort Cardio: Rate: regular rate Rhythm: regular rhythm Heart sounds: no murmurs GI: Inspection: non-distended GI Palp: Yes Soft to palpation and No Tenderness to palpation p
[2023-04-29] MEDS: SODIUM CHLORIDE 0.9% IV 1,000 ML 999 ML IV CONT (22:55)
[2023-04-29] MEDS: METOCLOPRAMIDE HCL INJ 10 MG/2 ML VIAL IV PUSH (22:56)
[2023-04-29] MEDS: KETOROLAC 30 MG/ML VIAL (*BKC) IV PUSH (22:56)
[2023-04-29] MEDS: diphenhydrAMINE HCl INJ 50 MG/ML VIAL 25 MG IV PUSH (22:57)
[2023-04-29 23:27] VITALS: BP 122/73; PULSE 70; RESP 20; TEMP 36.6; O2SAT 100
== END 2023-04-29 23:32 | disposition home or self-care (01) ==
PROVIDERS: Emergency Provider Emergency Medicine; PCP Family Medicine
DX: G44.89 Other headache syndrome (principal); Z87.891 Personal history of nicotine dependence
CPT/HCPCS: 96374; 96375; 99284; J1200; J1885; J2765; J7030

== ENCOUNTER 2024-03-07 11:44 | Outpatient (CLI) | payer OTHER, SELFPAY ==
--- NOTE | ~2024-03-07 | XR_ITS ---
XR knee RT 3V Ordering provider: Amina Call, History: . RT MEDIAL KNEE PAIN S/P LIFTING HEAVY FELT POP X1MO AGO . Comparison: None. FINDINGS: BONES: No acute fracture or dislocation. Endosteal thickening in the distal femur. JOINT SPACES: Normal. SOFT TISSUES: Normal. IMPRESSION: No acute osseous abnormality right knee. Reviewed, dictated and finalized at location A.
== END 2024-03-07 11:45 | disposition home or self-care (01) ==
PROVIDERS: PCP Family Medicine; Visit Provider Family Medicine
DX: M25.561 Pain in right knee (principal)
CPT/HCPCS: 73562

== ENCOUNTER 2024-03-16 08:54 | Outpatient (CLI) | payer OTHER, SELFPAY ==
--- NOTE | ~2024-03-16 | MR_ITS ---
EXAMINATION: MR knee RT wo con DATE: 03/16/2024 11:38 INDICATION: Right knee pain TECHNIQUE: Magnetic resonance imaging (MRI) of the right knee was performed without intravenous contr ast. Sequences included coronal PD-weighted FSE, coronal PD-weighted FS FSE, sagittal T2-weighted FS E, sagittal PD-weighted FS FSE and axial PD weighted fat saturated FSE. COMPARISON: None. FINDINGS: Medial compartment: Medial meniscus is normal. Articular cartilage is normal. Lateral compartment: Lateral meniscus is normal. Articular cartilage is normal. Patellofemoral compartment: Small region of partial-thickness chondral fissuring without degenerative subchondral changes along t he inferior aspect of the medial trochlea. Ligaments and tendons: Anterior and posterior cruciate ligaments are normal. The medial collateral ligament and fibular jocelyn ateral ligament complex are normal. The extensor mechanism is normal. The visualized medial and later al hamstring tendons as well as the iliotibial band are normal. Fluid: Physiologic amount of fluid in the joint space. No loose osteochondral bodies identified. Osseous/other: Normal marrow signal. No fracture or pathologic marrow replacing process. IMPRESSION: 1. Small region of partial-thickness chondral fissuring at the inferior aspect of the medial trochlea . Otherwise normal right knee MRI. Reviewed, dictated and finalized at location A. IMPRESSION: 1. Small region of partial-thickness chondral fissuring at the inferior aspect of the medial trochlea. Otherwise normal right knee MRI.
== END 2024-03-16 08:55 | disposition home or self-care (01) ==
PROVIDERS: PCP Family Medicine; Visit Provider Family Medicine
DX: M25.561 Pain in right knee (principal)
CPT/HCPCS: 73721

== ENCOUNTER 2024-03-26 07:52 | Outpatient (RCR) | payer OTHER, SELFPAY ==
--- NOTE | 2024-03-26 09:06 | OPREHPOC ---
Outpatient Therapy Plan of Care This is a Multidisciplinary Plan of Care that may contain components documented by all disciplines (PT, OT, and ST.) PT Problem 1 PT Problem #1 Knowledge Deficit PT Goal 1 Goal The patient will be independent in a home exercise program. Target Visit 2 PT Goal 2 Goal The patient will be independent in a home exercise program to continue after discharge from formal PT. Target Visit 10 PT Problem 2 PT Problem #2 Pain PT Goal 1 Goal The patient will report no greater than 2/10 right knee pain with return to previous activities. Target Visit 10 PT Problem 3 PT Problem #3 Impaired Range of Motion PT Goal 1 Goal The patient will demonstrate 0-125 degrees of right knee AROM to normalize gait. Target Visit 10 PT Problem 4 PT Problem #4 Impaired Strength PT Goal 1 Goal The patient will demonstrate 5/5 right quadriceps and hamstring strength to support the right knee for return to previous activity level. Target Visit 10 PT Problem 5 PT Problem #5 Impaired Functional Mobil PT Goal 1 Goal 1. The patient will demonstrate less than 25% self perceived disability per the LEFS. 2. The patient will demonstrate the ability to lift 25 lbs from floor to waist with proper body mechanics to return to job tasks safely. 3. The patient will be able to ambulate at least 1 ,200 feet during the 6 minute walk test to improve community ambulation. Target Visit 10
--- NOTE | 2024-03-26 09:06 | PTOPEVAL1 ---
Assessment and note entered by Yuni Nowak, PT Evaluation Information Assessment Status Evaluation Diagnosis R patella subluxation Other ICD-10 Condition Codes ( M25.361, S83.001A PT) Onset 02/14/24 Subjective Information Manuela Kwon reports she injured her right knee on 02/14/24 at work when she was trying to lift a trailer and she felt a pop in the front of her knee. She thought the pain would go away so she waited a few days but the pain did not improve and she had bruising around her kneecap. She saw doctor on Monday and was prescribed an anti- inflammatory and pain medication and was told to come back in 2 weeks if it didn't help. She eventually saw an grant specialist and was diagnosed with a patella subluxation. She was given a J brace by the grant specialist and she notes it made her knee hurt more after wearing it all day at work. She will have a follow up with the doctor on 04/03/24. She continues to have a lot of pain in the right knee at night. She reports it feels like her knee locks up and she can not bend it. She also notes pain when she has been walking too much. 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 Reported Pain Level Pain Score 6: Self Report Assessment PT Clinical Summary Manuela Kwon presents with right knee pain after a patella subluxation sustained on 02/14/24 when she was trying to lift a trailer at work. She has difficulty with full knee extension, bending the knee, walking, squatting, lifting, and sleeping. She objectively demonstrates decreased and painful right knee AROM, decreased right knee and hip strength, decreased right quadriceps recruitment, lateral patella tracking, altered gait, and decreased functional abilities of working and taking care of her 2 y/o son. She will benefit from skilled PT to address these limitations. Plan of Care Interventions Electrical Stimulation,Hot Pack/Cold Pack,Manual Therapy,Patient/Caregiver Educati,Therapeutic Activities,Therapeutic Exercise PT Services Indicated Yes Treatment Frequency and 3 times a week for 10 visits Duration These treatments will address the objective and functional deficits as defined above. The patient will be advanced safely and appropriately in order for the patient to progress towards his/her prior level of fu
--- NOTE | 2024-03-28 17:47 | PCPTNOTE ---
On 03/28/24, the license pending MANAGER REVENUE, [ Cathy Araya], provided care and completed [facility] documentation on this patient. I have reviewed the license pending MANAGER REVENUE's documentation and agree with the findings.
--- NOTE | 2024-04-01 13:08 | PCPTNOTE ---
Patient cancelled session today. Reports ortho does not want her doing therapy until she is seen by the doctor on Monday.
--- NOTE | 2024-05-13 14:23 | PTOPREEVAL ---
Assessment and note entered by Oneal Alaniz Evaluation Information Assessment Status Progress Diagnosis R patella subluxation Other ICD-10 Condition Codes ( M25.361, S83.001A, s/p right knee arthroscopy with PT) reported lateral release Onset 04/17/24 Subjective Information Pt. reports that she underwent a lateral release on 04/17/24. She states that she has been having trouble with pain and swelling since surgery. She reports that she has been unable to walk outside with her children without immediate swelling. She states that she still having trouble with bending her knee. She states that when she walks it feels like her knee is going to hyperextend. She states that pain in the right knee is daily. Reported Pain Level Pain Score 3: Self Report Assessment PT Clinical Summary Pt. re-enters the clinic post described lateral release and right knee arthroscopy. She presents with impaired ROM, edema, impaired l.e. strength, impaired gait and functional decline. Continued skilled PT is indicated in order to improve these areas to allow the pt. to return to normal work and recreational activities without limitation. We will continue with the same goals established at the initial evaluation. Plan of Care Interventions Electrical Stimulation,Gait Training,Hot Pack/Cold Pack,Manual Therapy,Neuro Re-education,Patient/ Caregiver Educati,Therapeutic Activities, Therapeutic Exercise PT Services Indicated Yes Treatment Frequency and 2x/week x 6 visits Duration These treatments will address the objective and functional deficits as defined above. The patient will be advanced safely and appropriately in order for the patient to progress towards his/her prior level of function. Additional exercises will be introduced and as well as a comprehensive home exercise program upon discharge, if needed, ?to ensure carryover of functional gains achieved in the clinic. This treatment plan has been reviewed and agreement upon by the patient.
--- NOTE | 2024-05-21 10:33 | PCPTNOTE ---
Patient did not show up for scheduled appointment this date.
--- NOTE | 2024-05-23 09:31 | PCPTNOTE ---
Cancelled session due to illness.
--- NOTE | 2024-06-13 15:25 | PCPTNOTE ---
Patient called & cancelled scheduled appointment this date due to going to wait and see what the surgeon says next week about continuing therapy.
== END 2024-06-24 23:59 | disposition home or self-care (01) ==
LOC: CHSPT 07:52
PROVIDERS: Visit Provider Nurse Practitioner Family
DX: S83.001D Unspecified subluxation of right patella, subsequent encounter (principal); M25.361 Other instability, right knee
CPT/HCPCS: 97014; 97110; 97112; 97140; 97161; 97530; G0283

== ENCOUNTER 2024-11-11 17:34 | Emergency (ER) | payer SELFPAY ==
--- NOTE | ~2024-11-11 | CT_ITS ---
EXAMINATION: CT abdomen pelvis w con DATE: 11/11/2024 19:31 INDICATION: RLQ pain TECHNIQUE: Computed tomography (CT) of the abdomen and pelvis was performed with 100 mL Omnipaque-350 intravenous contrast. Automated exposure control and iterative reconstruction technique were employe d. The dose-length product was 492.85 mGy-cm. COMPARISON: 04/11/2023. FINDINGS: Lower thorax: Unremarkable Liver: Normal. Biliary/Gallbladder: Gallbladder is normal. No bile duct dilation. Pancreas: No mass or duct dilation. Spleen: Normal. Adrenals:No mass. Kidneys: No suspicious mass, obstructing stone, or hydronephrosis. GI tract: No small or large bowel dilation. Normal appendix. Mesentery/Peritoneum: No ascites, mass, or free air. Retroperitoneum: No mass. Pelvis: Pelvic organs are within normal limits. Reversed craniocaudal orientation of the IUD. Soft Tissues: Soft tissues and body wall unremarkable. Bones: No acute osseous finding. IMPRESSION: No acute abdominopelvic process detected. Reversed craniocaudal orientation of an IUD. Reviewed, dictated and finalized at location K. EMS INTEGRATION ANALYST
[2024-11-11 17:38] VITALS: BP 128/81; PULSE 86; RESP 20; TEMP 36.6; O2SAT 100
--- NOTE | 2024-11-11 17:45 | PC.NURSE ---
covid culture sent to lab
[2024-11-11 18:13] LABS: Add Urine Microscopic? YES; Appearance Urine Clear (Clear); Bilirubin Urine Negative (Negative); Blood Urine Negative (Negative); Color Urine Yellow (Yellow); Glucose Urine UA Negative (Negative); Ketones Urine 1+ (Negative); Leukocyte Esterase Ur 1+ LEU/UL (Negative); Nitrate Urine Negative (Negative); Protein Urine Trace (Negative); Urobilinogen Urine 0.2 mg/dL (0.2-1.0)
[2024-11-11 18:15] LABS: Pregnancy On Board Control Positive; Urine Pregnancy Test Negative
[2024-11-11 18:18] LABS: Bacteria Urine 2+ /hpf; RBC Urine 0-2 /hpf (0-2); Squamous Epithelial Cell Urine Many /hpf (Few)
[2024-11-11 18:23] LABS: SARS-CoV-2 RNA PCR Negative (Negative)
[2024-11-11 18:32] LABS: Influenza A QL RT-PCR Negative (Negative); Influenza B QL RT-PCR Negative (Negative); RSV RNA, RT-PCR Negative (Negative)
--- NOTE | 2024-11-11 18:32 | ED_ITS ---
HPI - Abdominal Pain General Chief Complaint: Abdominal Pain <Jason Weiss MD - Last Filed: 11/11/24 18:35> Stated Complaint: abd pain <Jason Weiss MD - Last Filed: 11/11/24 18:35> Time Seen by Provider: 11/11/24 17:35 <Jason Weiss MD - Last Filed: 11/11/24 18:35> Source: patient <Jason Weiss MD - Last Filed: 11/11/24 18:35> Mode of arrival: ambulatory <Jason Weiss MD - Last Filed: 11/11/24 18:35> Limitations: no limitations <Jason Weiss MD - Last Filed: 11/11/24 18:35> History of Present Illness HPI narrative: Patient is a 29-year-old female with right lower quadrant abdominal pain as well as diffuse abdominal pain for the past day. It came on acutely today. Progressively getting worse throughout the day. She has associated nausea and vomiting. <Jason Weiss MD - Last Filed: 11/11/24 18:35> MD elicited complaint: abdominal pain <Jason Weiss MD - Last Filed: 11/11/24 18:35> Pertinent past history: none <Jason Weiss MD - Last Filed: 11/11/24 18:35> Onset (ago): day(s) ( One) <Jason Weiss MD - Last Filed: 11/11/24 18:35> Pain Consistency: constant <Jason Wiess MD - Last Filed: 11/11/24 18:35> Location: diffuse and RLQ <Jason Weiss MD - Last Filed: 11/11/24 18:35> Severity: moderate <Jason Weiss MD - Last Filed: 11/11/24 18:35> Pain scale (0-10): 6 <Jason Weiss MD - Last Filed: 11/11/24 18:35> Quality: sharp <Jason Weiss MD - Last Filed: 11/11/24 18:35> Radiation: none <Jason Weiss MD - Last Filed: 11/11/24 18:35> Migration to: no migration <Jason Weiss MD - Last Filed: 11/11/24 18:35> Exacerbating factors: nothing <Jason Weiss MD - Last Filed: 11/11/24 18:35> Relieving factors: nothing <Jason Weiss MD - Last Filed: 11/11/24 18:35> Context: confirms other ( patient has worsening right lower quadrant abdominal pain over the past day) <Jason Weiss MD - Last Filed: 11/11/24 18:35> Associated symptoms: nausea and vomiting <Jason Weiss MD - Last Filed: 11/11/24 18:35> Related Data Home Medications: Home Medications ?Medication ?Instructions ?Recorded ?Confirmed ?Last Taken ?Type etonogestrel 0.12 mg-ethinyl 1 vag ring vaginal DIRECTED 06/25/22 04/29/23 Unknown History estradiol 0.015 mg/24 hr vaginal ring (EluRyng) <Jason Weiss MD - Last Filed: 11/11/24 18:35> Allergies/Adverse Reactions: Allergies Allergy/AdvReac Type Severity Reaction Status Date / Time fluconazole Allergy Unknown Unknown Verified 11/11/24 17:43 <Jason Weiss MD - Last Filed: 11/11/24 18:35> Review of Systems 2 Review of Systems: All systems reviewed & are unremarkable except as noted in HPI and below <Jason Weiss MD - Last Filed: 11/11/24 18:35> Constitutional: Constitutional: Reports no additional constitutional complaints <Jason Weiss MD - Last Filed: 11/11/24 18:35> Eyes: Eyes: Reports no additional eye complaints <Jason Weiss MD - Last Filed: 11/11/24 18:35> ENT: Reports system reviewed and no additional complaints, except as documented <Jason Weiss MD - Last Filed: 11/11/24 18:35> Cardiovascular: Cardiovascular: Reports no additional cardiovascular complaints <Jason Weiss MD - Last Filed: 11/11/24 18:35> Respiratory: Respiratory: Reports no additional respiratory complaints < Jason Weiss MD - Last Filed: 11/11/24 18:35> Gastrointestinal: Gastrointestinal: Reports no additional gastrointestinal complaints <Jason Weiss MD - Last Filed: 11/11/24 18:35> Genitourinary: Genitourinary: Reports no additional female genitourinary complaints <Jason Weiss MD - Last Filed: 11/11/24 18:35> Musculoskeletal: Musculoskeletal: Reports no additional musculoskeletal complaints <Jason Weiss MD - Last Filed: 11/11/24 18:35> Integumentary/Breasts: Skin/Breast: Reports system reviewed and no additional complaints, except as docu <Jason Weiss MD - Last Filed: 11/11/24 18:35> Neurologic: Reports system reviewed and no additional complaints, except as documented <Jason Weiss MD - Last Filed: 11/11/24 18:35> Psychiatric: Psychiatric: Reports no additional psychiatric complaints < Jason Weiss MD - Last Filed: 11/11/24 18:35> Endocrine: Endocrine: Reports no additional endocrine complaints <Jason Weiss MD - Last Filed: 11/11/24 18:35> Hematologic/Lymphatic: Hematologic/Lymphatic: Reports no additional hematologic/lymphatic complaints <Jason Weiss MD - Last Filed: 11/11/24 18:35> Allergic/Immunologic: Allergic/Immunologic: Reports no additional allergic/immunologic complaints <Jason Weiss MD - Last Filed: 11/11/24 18:35> PMFSH Past Medical History Medical History: Medical History Normal delivery at term Migraine Nephrolithiasis <Jason Weiss MD - Last Filed: 11/11/24 18:35> Surgical History Surgical History: Surgical History History of tonsillectomy and adenoidectomy <Jason Weiss MD - Last Filed: 11/11/24 18:35> Family History Family History: Family History Father Migraines <Jason Weiss MD - Last Filed: 11/11/24 18:35> Social History Social History: Social History Smoking status: Former smoker Tobacco type: e-cigarettes/vaping Alcohol intake: former Substance use: never Living arrangements: with family Gender identity (if verbalized by the patient): Female Spiritual care concerns: No <Jason Weiss MD - Last Filed: 11/11/24 18:35> Exam 2 Const: General: healthy appearing <Jason Weiss MD - Last Filed: 11/11/24 18:35> Nutritional Appearance: well nourished <Jason Weiss MD - Last Filed: 11/11/24 18:35> Orientation/consciousness: patient oriented x3 <Jason Weiss MD - Last Filed: 11/11/24 18:35> Limitations: no limitations <Jason Weiss MD - Last Filed: 11/11/24 18:35> Other: patient in pain at this time <Jason Weiss MD - Last Filed: 11/11/24 18:35> HENMT: Head: normal to inspection <Jason Weiss MD - Last Filed: 11/11/24 18:35> Ears: external ears normal <Jason Weiss MD - Last Filed: 11/11/24 18:35> Face/Nose/Sinus: Normal external nose present <Jason Weiss MD - Last Filed: 11/11/24 18:35> Eyes: Conjunctivae: conjunctivae normal <Jason Weiss MD - Last Filed: 11/11/24 18:35> Pupils: Equal, round and reactive pupils present <Jason Weiss MD - Last Filed: 11/11/24 18:35> EOM: EOMs intact bilaterally <Jason Weiss MD - Last Filed: 11/11/24 18:35> Neck: Neck: normal visual inspection <Jason Weiss MD - Last Filed: 11/11/24 18:35> Chest: Chest palpation & inspection: normal inspection of the chest <Jason Weiss MD - Last Filed: 11/11/24 18:35> Resp: Effort & Inspection: normal respiratory effort and not labored <Jason Weiss MD - Last Filed: 11/11/24 18:35> Auscultation: clear to auscultation bilaterally and no crackles <Jason Weiss MD - Last Filed: 11/11/24 18:35> Cardio: Rate: regular rate <Jason Weiss MD - Last Filed: 11/11/24 18:35> Rhythm: regular rhythm <Jason Weiss MD - Last Filed: 11/11/24 18:35> Heart sounds: no murmurs <Jason Weiss MD - Last Filed: 11/11/24 18:35> GI: Inspection: non-distended <Jason Weiss MD - Last Filed: 11/11/24 18:35> GI Palp: Yes Soft to palpation, Yes Tenderness to palpation present (GI) ( diffusely and right upper quadrant and right lower quadrant are tender), No Guarding due to palpation present (GI), No Rigid due to palpation, No Hernia present, No Palpable mass present and No Rebound tenderness present <Jason Weiss MD - Last Filed: 11/11/24 18:35> Auscultation: normal bowel sounds <Jason Weiss MD - Last Filed: 11/11/24 18:35> Other: equivocal gallbladder and appendix signs <Jason Weiss MD - Last Filed: 11/11/24 18:35> : General: Yes bladder normal to palpation <Jason Weiss MD - Last Filed: 11/11/24 18:35> Back/Spine/Pelvis: Back: no CVA tenderness <MD Linda Flores Last Filed: 11/11/24 18:35> Skin: General skin exam: normal color <Jason Weiss MD - Last Filed: 11/11/24 18:35> Rashes: no rashes <Jason Weiss MD - Last Filed: 11/11/24 18:35> Wounds: no wounds <Jason Weiss MD - Last Filed: 11/11/24 18:35> Neuro: General: patient oriented x3 <Jason Weiss MD - Last Filed: 11/11/24 18:35> Cranial nerves: Yes Nystagmus not present <Jason Weiss MD - Last Filed: 11/11/24 18:35> Speech: normal speech <Jason Weiss MD - Last Filed: 11/11/24 18:35> Extrem: General: normal to inspection <Jason Weiss MD - Last Filed: 11/11/24 18:35> Psych: Mental Status: mental status grossly normal <Jason Weiss MD - Last Filed: 11/11/24 18:35> Affect: normal affect <Jason Weiss MD - Last Filed: 11/11/24 18:35> Attitude: cooperative <Jason Weiss MD - Last Filed: 11/11/24 18:35> Course Course Emergency Course: 19:00 - This patient was signed out to me by previous ED physician, Dr. Weiss pending remaining labs and imaging. 20:09 - CBC unremarkable. Chemistries demonstrate mild hypokalemia with potassium of 3.4 but is otherwise unremarkable. Urinalysis shows changes consistent with a urinary tract infection. test negative. COVID, influenza and RSV negative. CT abdomen pelvis unremarkable. I suspect the patient's symptoms may be related to early pyelonephritis. Re-evaluation, the patient states pain is improved though still present. We had a shared decision- making conversation which she elected to be discharged with pain medications and antibiotics. Will give 1st dose of antibiotics here. I discussed the findings and recommendations with The patient. Discussed return and emergency precautions including signs/symptoms of acute abdomen and intractable vomiting. The patient voiced understanding and agreement with the plan. All questions answered to her satisfaction. <Wilfredo Umana MD - Last Filed: 11/11/24 20:15> Vital Signs Vital signs: Vital Signs Temperature 97.9 F 11/11/24 17:38 Pulse Rate 86 11/11/24 17:38 Respiratory Rate 20 11/11/24 17:38 Blood Pressure 128/81 11/11/24 17:38 Pulse Oximetry 100 11/11/24 17:38 Oxygen Delivery Room Air 11/11/24 17:38 Temperature 97.9 F 11/11/24 17:38 Pulse Rate 70 11/11/24 19:45 Respiratory Rate 18 11/11/24 19:45 Blood Pressure 121/76 11/11/24 19:45 Pulse Oximetry 100 11/11/24 19:45 Oxygen Delivery Room Air 11/11/24 19:45 <Jason Weiss MD - Last Filed: 11/11/24 18:35> Vital Signs Temperature 97.9 F 11/11/24 17:38 Pulse Rate 86 11/11/24 17:38 Respiratory Rate 20 11/11/24 17:38 Blood Pressure 128/81 11/11/24 17:38 Pulse Oximetry 100 11/11/24 17:38 Oxygen Delivery Room Air 11/11/24 17:38 Temperature 97.9 F 11/11/24 17:38 Pulse Rate 70 11/11/24 19:45 Respiratory Rate 18 11/11/24 19:45 Blood Pressure 121/76 11/11/24 19:45 Pulse Oximetry 100 11/11/24 19:45 Oxygen Delivery Room Air 11/11/24 19:45 <Wilrfedo Umana MD - Last Filed: 11/11/24 20:15> MDM - Abdominal Pain MDM Narrative Medical decision making narrative: patient is a 29-year-old female with progressively worse abdominal pain. We will do an abdominal pain workup at this time. <Jason Weiss MD - Last Filed: 11/11/24 18:35> Lab Data Attestation: I reviewed the patient's lab results. <Jason Weiss MD - Last Filed: 11/11/24 18:35> Result diagrams: 11/11/24 18:39 11/11/24 18:39 <Jason Weiss MD - Last Filed: 11/11/24 18:35> Labs: Lab Results 11/11/24 11/11/24 11/11/24 Range/Units 17:45 18:08 18:39 WBC 8.5 (4.8-10.8) K/mm3 RBC 4.33 (4.20-5.40) M/mm3 Hgb 12.8 (12.0-15.0) g/dL Hct 39.7 (35.0-49.0) % MCV 91.7 (78.0-102.0) fL MCH 29.6 (27.0-31.0) pg MCHC 32.2 (32-36) g/dL RDW 11.8 (11.6-14.4) % Plt Count 304 (150-420) K/mm3 MPV 9.4 (9.2-11.8) fl Immature Gran % (Auto) 0.2 H (0.0-0.0) % Neut % (Auto) 60.2 (50.0-70.0) % Lymph % (Auto) 32.5 (18.0-42.0) % [place] % (Auto) 6.0 (2.0-11.0) % Eos % (Auto) 0.5 L (1.0-6.0) % Baso % (Auto) 0.6 (0.0-1.0) % Lymph # (Auto) 2.75 (1.10-4.50) K/mm3 [place] # (Auto) 0.51 (0.10-0.90) K/mm3 Eos # (Auto) 0.04 (0.02-0.50) K/mm3 Baso # (Auto) 0.05 (0.00-0.10) K/mm3 Abs Immat Gran (auto) 0.02 H (0.00-0.00) K/mm3 Absolute Neuts (auto) 5.10 (1.70-7.20) K/mm3 Absolute Nucleated RBC 0.00 (0.00-0.00) K/mm3 Nucleated RBC % 0.0 (0-0.0) % PT 11.8 (9.50-12.1) Seconds INR 1.1 APTT 32.5 H (23.9-30.70) Sec Sodium 141 (136-145) mmol/L Potassium 3.4 L (3.5-5.1) mmol/L Chloride 102 (98-108) mmol/L Carbon Dioxide 26 (21-32) mmol/L Anion Gap 13 H (4-12) mmol/L BUN 10 (7-18) mg/dL Creatinine 0.83 (0.55-1.02) mg/dL Estim Creat Clear Calc 118 ml/min Estimated GFR > 60 (59 - ) Glucose 84 (70-99) mg/dL Calculated Osmolality 290 (285-295) mOsm/kg Lactic Acid 0.8 (0.4-2.0) mmol/L Calcium 8.9 (8.5-10.1) mg/dL Total Bilirubin 0.8 (0.00-1.00) mg/dL AST 13 L (15-37) U/L ALT 23 (14-59) U/L Alkaline Phosphatase 90 (46-116) U/L Total Protein 7.7 (6.4-8.2) g/dL Albumin 4.4 (3.4-5.0) g/dL Lipase 28 (16-77) U/L Urine Color Yellow (Yellow) Urine Appearance Clear (Clear) Urine pH 7.0 (5.0-8.0) Ur Specific [place] 1.020 (1.010-1.020) Urine Protein Trace H (Negative) Urine Glucose (UA) Negative (Negative) Urine Ketones 1+ H (Negative) Ur Blood (Man) Negative (Negative) Urine Nitrate Negative (Negative) Urine Bilirubin Negative (Negative) Urine Urobilinogen 0.2 (0.2-1.0) mg/dL Leukocyte Esterase Rfl 1+ H (Negative) MONIQUE/UL Urine RBC 0-2 (0-2) /hpf Urine WBC 11-20 H (0-3) /hpf Ur Squamous Epith Cells Many H (Few) /hpf Urine Bacteria 2+ H (None) /hpf Urine Test Negative Influenza A (RT-PCR) Negative (Negative) Influenza B (RT-PCR) Negative (Negative) RSV (RT-PCR) Negative (Negative) SARS-CoV-2 RNA (RT-PCR) Negative (Negative) <Jason Weiss MD - Last Filed: 11/11/24 18:35> Lab Results 11/11/24 11/11/24 11/11/24 Range/Units 17:45 18:08 18:39 WBC 8.5 (4.8-10.8) K/mm3 RBC 4.33 (4.20-5.40) M/mm3 Hgb 12.8 (12.0-15.0) g/dL Hct 39.7 (35.0-49.0) % MCV 91.7 (78.0-102.0) fL MCH 29.6 (27.0-31.0) pg MCHC 32.2 (32-36) g/dL RDW 11.8 (11.6-14.4) % Plt Count 304 (150-420) K/mm3 MPV 9.4 (9.2-11.8) fl Immature Gran % (Auto) 0.2 H (0.0-0.0) % Neut % (Auto) 60.2 (50.0-70.0) % Lymph % (Auto) 32.5 (18.0-42.0) % [place] % (Auto) 6.0 (2.0-11.0) % Eos % (Auto) 0.5 L (1.0-6.0) % Baso % (Auto) 0.6 (0.0-1.0) % Lymph # (Auto) 2.75 (1.10-4.50) K/mm3 [place] # (Auto) 0.51 (0.10-0.90) K/mm3 Eos # (Auto) 0.04 (0.02-0.50) K/mm3 Baso # (Auto) 0.05 (0.00-0.10) K/mm3 Abs Immat Gran (auto) 0.02 H (0.00-0.00) K/mm3 Absolute Neuts (auto) 5.10 (1.70-7.20) K/mm3 Absolute Nucleated RBC 0.00 (0.00-0.00) K/mm3 Nucleated RBC % 0.0 (0-0.0) % PT 11.8 (9.50-12.1) Seconds INR 1.1 APTT 32.5 H (23.9-30.70) Sec Sodium 141 (136-145) mmol/L Potassium 3.4 L (3.5-5.1) mmol/L Chloride 102 (98-108) mmol/L Carbon Dioxide 26 (21-32) mmol/L Anion Gap 13 H (4-12) mmol/L BUN 10 (7-18) mg/dL Creatinine 0.83 (0.55-1.02) mg/dL Estim Creat Clear Calc 118 ml/min Estimated GFR > 60 (59 - ) Glucose 84 (70-99) mg/dL Calculated Osmolality 290 (285-295) mOsm/kg Lactic Acid 0.8 (0.4-2.0) mmol/L Calcium 8.9 (8.5-10.1) mg/dL Total Bilirubin 0.8 (0.00-1.00) mg/dL AST 13 L (15-37) U/L ALT 23 (14-59) U/L Alkaline Phosphatase 90 (46-116) U/L Total Protein 7.7 (6.4-8.2) g/dL Albumin 4.4 (3.4-5.0) g/dL Lipase 28 (16-77) U/L Urine Color Yellow (Yellow) Urine Appearance Clear (Clear) Urine pH 7.0 (5.0-8.0) Ur Specific [place] 1.020 (1.010-1.020) Urine Protein Trace H (Negative) Urine Glucose (UA) Negative (Negative) Urine Ketones 1+ H (Negative) Ur Blood (Man) Negative (Negative) Urine Nitrate Negative (Negative) Urine Bilirubin Negative (Negative) Urine Urobilinogen 0.2 (0.2-1.0) mg/dL Leukocyte Esterase Rfl 1+ H (Negative) MONIQUE/UL Urine RBC 0-2 (0-2) /hpf Urine WBC 11-20 H (0-3) /hpf Ur Squamous Epith Cells Many H (Few) /hpf Urine Bacteria 2+ H (None) /hpf Urine Test Negative Influenza A (RT-PCR) Negative (Negative) Influenza B (RT-PCR) Negative (Negative) RSV (RT-PCR) Negative (Negative) SARS-CoV-2 RNA (RT-PCR) Negative (Negative) <Wilfredo Umana MD - Last Filed: 11/11/24 20:15> Imaging Data Attestation: I personally reviewed and interpreted this imaging study as follows: <Jason Weiss MD - Last Filed: 11/11/24 18:35> Radiologist's impression: ITS Impressions Abdomen/Pelvis CT 11/11/24 19:53 IMPRESSION: No acute abdominopelvic process detected. Reversed craniocaudal orientation of an IUD. <Jason Weiss MD - Last Filed: 11/11/24 18:35> ITS Impressions Abdomen/Pelvis CT 11/11/24 19:53 IMPRESSION: No acute abdominopelvic process detected. Reversed craniocaudal orientation of an IUD. <Wilfredo Umana MD - Last Filed: 11/11/24 20:15> Discharge Plan Discharge Clinical Impression: Right upper quadrant abdominal pain, Hypokalemia UTI (urinary tract infection) Qualifiers: Urinary tract infection type: acute cystitis Hematuria presence: without hematuria Qualified Code(s): N30.00 - Acute cystitis without hematuria <Jason Weiss MD - Last Filed: 11/11/24 18:35> Patient Disposition: Home, Self-Care <Jason Weiss MD - Last Filed: 11/11/24 18:35> Condition: Stable <Jason Weiss MD - Last Filed: 11/11/24 18:35> Instructions: Antibiotic Form, Urinary Tract Infection in Women (ED), Abdominal Pain (ED) <Jason Weiss MD - Last Filed: 11/11/24 18:35> Additional Instructions: You were seen in the emergency department. Your labs show changes consistent with a urinary tract infection. a test was negative. Your labs are not concerning for liver or kidney injury. A CT scan was not concerning for acute intra-abdominal infection organ injury. I suspect you may have an early kidney infection. I recommend a course of antibiotics, pain medications, nausea medications and follow-up with your primary care doctor. If you develop Severe abdominal pain, abdominal pain with fevers, persistent vomiting, or if you have other emergent concerns for life, limb, or eyesight, return to the emergency department. <Jason Weiss MD - Last Filed: 11/11/24 18:35> Patient Language: Somali <Jason Weiss MD - Last Filed: 11/11/24 18:35> Prescriptions: New hydrocodone-acetaminophen 5-325 mg tablet 1 tablet PO Q8H PRN (Reason: pain, severe) Qty: 12 0RF ondansetron 4 mg tablet,disintegrating 4 mg PO Q8H PRN (Reason: nausea and vomiting) Qty: 15 0RF sulfamethoxazole-trimethoprim [Bactrim DS] 800-160 mg tablet 1 tablet PO Q12H 14 Days Qty: 28 0RF No Action etonogestrel-ethinyl estradiol [EluRyng] 0.12-0.015 mg/24 hr ring 1 vag ring VAGINAL DIRECTED <Jason Weiss MD - Last Filed: 11/11/24 18:35> Follow-up/Referrals: Laura,MD Harvey [Primary Care Provider] - 1 Week <Jason Weiss MD - Last Filed: 11/11/24 18:35> Time of Disposition: 20:15 <Jason Weiss MD - Last Filed: 11/11/24 18:35> 20:15 <Wiflredo Umana MD - Last Filed: 11/11/24 20:15>
[2024-11-11] MEDS: ONDANSETRON INJ 4 MG/2 ML VIAL IV PUSH (18:41)
[2024-11-11] MEDS: MORPHINE SULFATE (*CRX) 2 MG/ML INJ IV PUSH (18:41)
[2024-11-11 18:43] LABS: Basophils Absolute Auto 0.05 K/mm3 (0.00-0.10); Basophils Percent Auto 0.6 % (0.0-1.0); Eosinophils Absolute Auto 0.04 K/mm3 (0.02-0.50); Eosinophils Percent Auto 0.5 % (1.0-6.0); Hematocrit 39.7 % (35.0-49.0); Hemoglobin 12.8 g/dL (12.0-15.0); Immature Granulocyte Absolute 0.02 K/mm3 (0.00-0.00); Immature Granulocyte Percent A 0.2 % (0.0-0.0); Lymphocytes Absolute Auto 2.75 K/mm3 (1.10-4.50); Lymphocytes Percent Auto 32.5 % (18.0-42.0); Mean Corpuscular HGB Conc 32.2 g/dL (32-36); Mean Corpuscular Hemoglobin 29.6 pg (27.0-31.0); Mean Corpuscular Volume 91.7 fL (78.0-102.0); Mean Platelet Volume 9.4 fl (9.2-11.8); Monocytes Absolute Auto 0.51 K/mm3 (0.10-0.90); Neutrophils Percent Auto 60.2 % (50.0-70.0); Platelet Count Result 304 K/mm3 (150-420); Red Blood Count 4.33 M/mm3 (4.20-5.40); Red Cell Distribution Width 11.8 % (11.6-14.4); White Blood Count 8.5 K/mm3 (4.8-10.8)
[2024-11-11 18:58] LABS: INR 1.1; Partial Thromboplastin Time 32.5 Sec (23.9-30.70); Prothrombin Time 11.8 Seconds (9.50-12.1)
--- OUTSIDE RECORDS SUMMARY | 2024-11-11 18:58 | XMS_ITS | Clinical Summary ---
Author Organization [facility] Address [address] [place] [address] Care Team Providers Care Nurse Wound Care Name Role Phone Mati Vaughn MD Primary Care Provider [phone] Source Comments [facility],non-owned Affiliates and Associated Physician Practices is amultiple site organization consisting of ambulatory clinics and hospital sitesin [place], [place], [place] and [place]. This disclosure is being madepursuant to the Care Everywhere program and may not contain all information available regarding this patient. Last updated 18.[facility] [employer] Allergies No known active allergies Medications * Be aware that medications may not be up to date on this document. Alwaysverify current medications with the patient. Medication Sig Dispensed Refills Start Date End Date Status MedroxyPROGESTERone Acetate (DEPO-PROVERA IM) Inject into muscle. Active Immunizations Name Administration Dates Next Due INFLUENZA VACCINE 07/09/2013 Family History Medical History Relation Name Comments Migraine Mother Relation Name Status Comments Mother Social History Tobacco Use Types Packs/Day Years Used Date Smoking Tobacco: Never Assessed Sex and Gender Information Value Date Recorded Sex Assigned at Not on file Gender Identity Not on file Sexual Orientation Not on file Last Filed Vital Signs Vital Sign Reading Time Taken Comments Blood Pressure 120/58 07/09/2013 12:58 PM CDT Pulse - - Temperature - - Respiratory Rate - - Oxygen Saturation - - Inhaled Oxygen Concentration - - Weight 83.6 kg (184 lb 6.4 oz) 07/09/2013 12:58 PM CDT Height 178.1 cm (5' 10.12 ) 07/09/2013 12:58 PM CDT Body Mass Index 26.37 07/09/2013 12:58 PM CDT Plan of Treatment Health Maintenance Due Date Last Done Comments PAP SMEAR 1996 HIV SCREENING 2011 HEPATITIS C SCREENING 08/12/2014 DTAP/TDAP/TD VACCINES (1 - Tdap) 2015 HEPATITIS B VACCINE (1 of 3 - 19+ 3-dose series) 2015 COVID-19 VACCINE (1 - 2023-2 5 season) 2024 INFLUENZA VACCINE (#1) 2024 07/09/2013 DEPRESSION SCREENING 09/18/2024 ZOSTER VACCINE (1 of 2) 2046 HIB VACCINE Aged Out No longer eligi ble based on patient's age to complete this topic HPV VACCINE Aged Out No longer eligi ble based on patient's age to complete this topic MENINGOCOCCAL (Group B) VACCINE Aged Out No longer eligible based on patient's age to complete this topic MENINGOCOCCAL VACCINE Aged Out No gennaro margareth eligible based on patient's age to complete this topic PNEUMOCOCCAL VACCINE Aged Out No long er eligible based on patient's age to complete this topic Care Teams Nurse Wound Care Relationship Specialty Start Date End Date Mati Vaughn MD [address] [place] [id number] PCP - General Family Medicine 07/09/13
--- OUTSIDE RECORDS SUMMARY | 2024-11-11 18:58 | XMS_ITS | Encounter Summary ---
Author Organization [facility] Address [facility] [place] [address] Care Team Providers Care Clinical Laboratory Director Name Role Phone Mark Sanchez MD Primary Care Provider [phone] Amina Call MD Primary Care Provider [phone] Encounter Details Date Type Department Care Team (Late st Contact Info) Description 02/23/2019 Abstract SFL CONVERSION [address] [place] [address] , Generic Conversion, Social History Tobacco Use Types Packs/Day Years Used Date Smoking Tobacco: Never Assessed Comments Unknown Sex and Gender Information Value Date Recorded Sex Assigned at Not on file Legal Sex Female 7:54 AM CDT Gender Identity Not on file Sexual Orientation Not on file documented as of this encounter Plan of Treatment Not on file documented as of this encounter Visit Diagnoses Not on filedocumented in this encounter Care Teams Clinical Laboratory Director Relationship Specialty Start Date End Date Mark Sanchez MD [address] [place] [address] [place] [address] PCP - General EMERGENCY MEDICINE 02/26/22 03/11/24 Amina Call MD [address] [place] [phone] PCP - General FAMILY PRACTICE 03/12/24 documented as of this encounter
--- OUTSIDE RECORDS SUMMARY | 2024-11-11 18:58 | XMS_ITS | Referral Summary ---
Author Organization [facility] Address [address] [place] [address] Care Team Providers Care Blower Blast Furnace Name Role Phone Mati Vaughn MD Primary Care Provider [phone] Source Comments [facility],non-owned Affiliates and Associated Physician Practices is amultiple site organization consisting of ambulatory clinics and hospital sitesin [place], [place], [place] and [place]. This disclosure is being madepursuant to the Care Everywhere program and may not contain all information available regarding this patient. Last updated 18.[facility] Q-Bot Allergies No known active allergies Medications * Be aware that medications may not be up to date on this document. Alwaysverify current medications with the patient. Medication Sig Dispensed Refills Start Date End Date Status MedroxyPROGESTERone Acetate (DEPO-PROVERA IM) Inject into muscle. Active Immunizations Name Administration Dates Next Due INFLUENZA VACCINE 07/09/2013 Social History Tobacco Use Types Packs/Day Years [...] 07/09/2013 12:58 PM CDT Plan of Treatment Not on file Care Teams Blower Blast Furnace Relationship Specialty Start Date End Date Mati Vaughn MD [address] [place] [phone] PCP - General Family Medicine 07/09/13
--- OUTSIDE RECORDS SUMMARY | 2024-11-11 18:58 | XMS_ITS | Clinical Summary ---
Author Organization [facility] Address [address] [place] [address] Care Team Providers Care 3D Modeler Name Role Phone Amina Call MD Primary Care Provider [phone] Allergies Active Allergy Reactions Criticality Noted Date Comments Fluconazole Unknown,Hives,Other (see comment) High 1 11/07/2017 Medications levonorgestrel (MIRENA, 52 MG,) 20 MCG/DAY IUD 1 Intra Uterine Device by Intrauterine route once. Active CONCERTA 18 MG tablet Take 1 tablet (18 mg total) by mouth daily. 4 Active naproxen (NAPROSYN) 500 MG tablet Take 1 tablet (500 mg total) by mouth 2 (two) times daily as needed. 60 tablet 1 4 Active celecoxib (CELEBREX) 200 MG capsuleIndicat ions:Chronic pain of right knee Take 1 capsule (200 mg total) by mouth daily. 30 capsule 2 4 10/29/19 25 Additional Information Patient not taking.Reported on 08/07/2024 diclofenac sodium (VOLTAREN) 1 % gelIndications :Patellofemora l pain syndrome of right knee Apply 2 g topically 4 (four) times daily for 30 days. 300 g 1 5 10/30/19 25 Active Problems Problem Noted Date Diagnosed Date Chondromalacia, knee, right 04/03/2024 Patellofemoral pain syndrome of right knee 04/03 Patellar subluxation, right, initial encounter 0 03/20/2024 Patellar instability of right knee 03/20/2024 Encounters Date Type Department Care Team Description 09/30/2024 Telephone [facility] [place] [address] Yanet Thomas PA Follow Up Call 08/22/2024 Telephone [place] [id number] [facility] [address] [place] [id number] Vasu Kothari MD Disability Form ([employer]) from Last 3 Months Family History Medical History Relation Comments No Known Problems Father No Known Problems Mother Relation Status Comments Father Alive Mother Alive Social History Tobacco Use Types Packs/Day Years Used Date Smoking Tobacco: Former Cigarettes Q uit: 03/20/2024 Smokeless Tobacco: Never Tobacco Cessation:Counseling Given: Not Answered Comments:Vapes Alcohol Use Standard Drinks/Week Comments Not Currently 0 (1 standard drink = 0.6 oz pur e alcohol) once a year Comments Unknown Sex and Gender Information Value Date Recorded Sex Assigned at Not on file Legal Sex Female 7:54 AM CDT Gender Identity Not on file Sexual Orientation Not on file Last Filed Vital Signs Vital Sign Reading Time Taken Comments Blood Pressure 124/70 04/17/2024 2:20 PM CDT Pulse 89 04/17/2024 2:20 PM CDT Temperature 37.1 C (98.8 F) 04/17/2024 2:20 PM CDT Respiratory Rate 16 04/17/2024 2:20 PM CDT Oxygen Saturation 98% 04/17/2024 2:20 PM CDT Inhaled Oxygen Concentration - - Weight 104.3 kg (230 lb) 08/07/2024 2:27 PM REINSURANCE CLAIM ANALYST Height 180.3 cm (5' 11 ) 08/07/2024 2:27 PM REINSURANCE CLAIM ANALYST Body Mass Index 32.08 08/07/2024 2:27 PM REINSURANCE CLAIM ANALYST Plan of Treatment Health Maintenance Due Date Last Done Comments Cervical Cancer Screening Pap Smear (Age 21 to 29) Every 3 Years 1996 Cervical Cancer Screening 1996 Hepatitis B Vaccines (4 of 4 - 4-dose series) 05/27/1998 05/04/1998, 04/01/1998, 1996 Annual Physical 1999 Hepatitis C 2014 DTaP, Tdap and Td Vaccines (6 - Td or Tdap) 05/21/2018 05/21/2008, 01/20/2000, 09/23/1998, Additional history exists COVID-19 Vaccine ( season) 2024 Influenza Adult (#1) 2024 07/09/2013 HPV Vaccines Completed 11/19/2008, 07/19, 05/21/2008 Meningococcal Vaccine Completed 01/14/2015, 008 Meningococcal B Vaccine Aged Out No l onger eligible based on patient's age to complete this topic Pneumococcal Vaccine: Pediatrics (0 to 5 Years) and At-Risk Patients (6 to 64 Years) Aged Out No longer eligible based on patient's age to complete this topic RSV Immunizations Under 20 Months Aged Out No longer eligible based on patient's age to complete this topic Insurance MEDICAL REIMBURSEMENTS OF [facility] Care Teams 3D Modeler Relationship Specialty Start Date End Date Amina Call MD [address] [place] [phone] PCP - General FAMILY PRACTICE 03/12/24
--- OUTSIDE RECORDS SUMMARY | 2024-11-11 18:58 | XMS_ITS | Patient Health Summary ---
Author Organization [facility] Address [address] [place] [address] Care Team Providers Care Monorail Car Operator Name Role Phone Mati Vaughn MD Primary Care Provider [phone] Note from [facility],non-owned Affiliates and Associated Physician Practices is amultiple site organization consisting of ambulatory clinics and hospital sitesin [place], [place]. This disclosure is being madepursuant to the Care Everywhere program and may not contain all information available regarding this patient. Last updated 18.[facility] Allergies No known active allergies Medications * Be aware that medications may not be up to date on this document. Alwaysverify current medications with the patient. * MedroxyPROGESTERone Acetate (DEPO-PROVERA IM) Inject into muscle. Immunizations * INFLUENZA VACCINE(Given 07/09/2013) Social History Tobacco Use Types Packs/Day Years [...] Mass Index 26.37 07/09/2013 12:58 PM CDT Procedures * TISSUE TRANSGLUTAMINASE AB IGA(Performed 07/09/2013) Performed for Abdominal pain, generalized * IGA BLOOD(Performed 07/09/2013) Performed for Abdominal pain, generalized * CBC W AUTO DIFFERENTIAL(Performed 07/09/2013) Performed for Abdominal pain, generalized * COMPREHENSIVE METABOLIC PANEL(Performed 07/09/2013) Performed for Abdominal pain, generalized Results * TISSUE TRANSGLUTAMINASE AB IGA (07/09/2013 2:32 PM CDT) Pathologist [facility] Tissue Transglutaminase (tTG) Ab, IgA 10 0 - 19 Units 07/12/2013 7:05 AM CDT [facility] Comment: INTERPRETIVE INFORMATION: Tissue Transglutaminase (tTG) Antibody, IgA 19 Units or less: Negative 20-30 Units: Weak Positive 31 Units or greater: Moderate to Strong Positive Presence of the tissue transglutaminase (tTG) IgA antibody is associated with gluten-sensitive enteropathies such as celiac disease and dermatitis herpetiformis. tTG IgA antibody concentrations greater than or equal to 100 Units usually correlate with results of duodenal biopsies consistent with a diagnosis of celiac disease. For antibody concentrations greater than 20 Units but less than 100 Units, additional testing for endomysial (MISSAEL) IgA concentrations may improve the positive predictive value for disease. Blood specimen (specimen) BLOOD SPECIMEN / Unknown Lab Venipuncture / Unknown 07/09/2013 2:32 PM CDT 07/09/2013 2:40 PM CDT Yanet Weinberg MD LAB - SEROLOGY ORDER BETZAIDA Performing Organization Address City/State/[facility] Co de Phone Number [facility] [address] [place] [address] * (ABNORMAL) CBC W AUTO DIFFERENTIAL (07/09/2013 2:32 PM CDT) WBC 6.1 4.5 - 14.5 x10^9/L 07/09/2013 3:59 PM CDT [facility] RBC 4.30 4.10 - 5.10 x10^12/L 07/09/2013 3:59 PM CDT [facility] Hemoglobin 12.6 12.0 - 16.0 g/dL 07/09/2013 3:59 PM CDT [facility] Hematocrit 36.7 36.0 - 47.0 % 07/09/2013 3:59 PM CDT [facility] MCV 85.3 78.0 - 98.0 fl 07/09/2013 3:59 PM [facility] MCH 29.3 25.0 - 35.0 pg 07/09/2013 3:59 PM [facility] MCHC 34.3 31.0 - 37.0 gm/dL 07/09/2013 3:59 PM [facility] Platelet Count 252 100 - 400 x10^9/L 07/09/2013 3:59 PM [facility] RDW-CV 12.4 11.5 - 14.0 % 07/09/2013 3:59 PM [facility] MPV 10.2(H) 6.0 - 9.5 fl 07/09/2013 3:59 PM [facility] Neutrophils % 57.0 24.0 - 66.0 % 07/09/2013 3:59 PM [facility] Lymphocytes % 29.7 22.0 - 61.0 % 07/09/2013 3:59 PM [facility] Monocytes % 9.6 3.0 - 15.0 % 07/09/2013 3:59 PM [facility] Eosinophils % 2.8 0.0 - 10.0 % 07/09/2013 3:59 PM [facility] Basophils % 0.7 % 07/09/2013 3:59 PM [facility] Immature Granulocytes 0.2 % 07/09/2013 3:59 PM [facility] Neutrophil Absolute 3.47 x10^9/L 07/09/2013 3:59 PM [facility] Lymphocytes Absolute 1.80 x10^9/L 07/09/2013 3:59 PM [facility] Monocytes Absolute 0.58 x10^9/L 07/09/2013 3:59 PM [facility] Eosinophils Absolute 0.17 x10^9/L 07/09/2013 3:59 PM [facility] Basophils Absolute 0.04 x10^9/L 07/09/2013 3:59 PM [facility] Immature Granulocytes Absolute 0.01 x10^9/L 07/09/2013 3:59 PM [facility] Blood BLOOD SPECIMEN / Unknown Lab Venipuncture / Unknown 07/09/2013 2:32 PM CDT 07/09/2013 2:40 PM CDT Yanet Weinberg MD LAB - HEMATOLOGY ORD ERABLES [facility] [address] [place] [address] * (ABNORMAL) COMPREHENSIVE METABOLIC PANEL (07/09/2013 2:32 PM CDT) Glucose 90 70 - 105 mg/dL 07/09/2013 3:23 PM CDT [facility] Sodium 140 136 - 145 mmol/L 07/09/2013 3:23 PM T [facility] Potassium 3.7 3.5 - 5.1 mmol/L 07/09/2013 3:23 PM T [facility] Chloride 110(H) 98 - 107 mmol/L 07/09/2013 3:23 PM T [facility] CO2 23 20 - 28 mmol/L 07/09/2013 3:23 PM T [facility] Calcium 9.44 9.08 - 10.48 mg/dL 07/09/2013 3:23 PM T [facility] Anion Gap 7 5 - 20 mmol/L 07/09/2013 3:23 PM T [facility] BUN 8.4 5.3 - 18.7 mg/dL 07/09/2013 3:23 PM T [facility] Creatinine 0.74 0.61 - 1.07 mg/dL 07/09/2013 3:23 PM [facility] eGFR by MDRD ml/min/1.7 3m2 07/09/2013 3:23 PM T [facility] Comment:eGFR calculations ar e not performed for children under 18 years old. eGFR by MDRD ml/min/1.7 3m2 07/09/2013 3:23 PM T [facility] Comment:eGFR calculations ar e not performed for children under 18 years old. Alkaline Phosphatase 111 100 - 390 U/L 07/09/2013 3:23 PM CDT [facility] ALT 12 8 - 65 U/L 07/09/2013 3:23 PM T [facility] AST 13 3 - 35 U/L 07/09/2013 3:23 PM T [facility] Protein Total 7.2 6.3 - 8.2 gm/dL 07/09/2013 3:23 PM CDT [facility] Albumin 4.4 3.3 - 4.9 gm/dL 07/09/2013 3:23 PM CDT [facility] Bilirubin Total 0.3 0.3 - 1.2 mg/dL 07/09/2013 3:23 PM CDT [facility] Blood BLOOD SPECIMEN / Unknown Lab Venipuncture / Unknown 07/09/2013 2:32 PM CDT 07/09/2013 2:40 PM CDT Yanet Weinberg MD LAB - CHEMISTRY ZEFERINO GLEZ Performing Organization Address City/[facility]/ZIP Co de Phone Number [facility] [address] [place] [address] * IGA BLOOD (07/09/2013 2:32 PM CDT) IgA 154 65 - 421 mg/dL 07/09/2013 3:38 PM CDT [facility] Blood BLOOD SPECIMEN / Unknown Lab Venipuncture / Unknown 07/09/2013 2:32 PM CDT 07/09/2013 2:40 PM CDT Yanet Weinberg MD LAB - CHEMISTRY ZEFERINO GLEZ Performing Organization Address City/[facility] Co de Phone Number [facility] [address] [place] [address] Care Teams Monorail Car Operator Relationship Specialty Start Date End Date Mati Vaughn MD [address] [place] [phone] PCP - General Family Medicine 07/09/13
[2024-11-11 18:59] LABS: Alanine Aminotransferase 23 U/L (14-59); Albumin Level 4.4 g/dL (3.4-5.0); Alkaline Phosphatase 90 U/L (46-116); Anion Gap 13 mmol/L (4-12); Aspartate Amino Transferase 13 U/L (15-37); Bilirubin,Total 0.8 mg/dL (0.00-1.00); Blood Urea Nitrogen 10 mg/dL (7-18); Calcium 8.9 mg/dL (8.5-10.1); Carbon Dioxide 26 mmol/L (21-32); Chloride 102 mmol/L (98-108); Estimated CRCL calculation 118 ml/min; Estimated Glomerular Filt Rate > 60; Glucose 84 mg/dL (70-99); Lipase 28 U/L (16-77); Osmolality Calculated 290 mOsm/kg (285-295); Potassium 3.4 mmol/L (3.5-5.1); Sodium 141 mmol/L (136-145); Total Protein 7.7 g/dL (6.4-8.2)
[2024-11-11 19:04] LABS: Lactic Acid Reflex 0.8 mmol/L (0.4-2.0)
--- NOTE | 2024-11-11 19:16 | PC.NURSE ---
patient report received from ENRIQUE Wilks. Patient awake and alert, resting on stretcher in ED 6 without distress. patient awaiting results of imaging, call light within reach.
[2024-11-11] MEDS: KETOROLAC 30 MG/ML VIAL (*BKC) IV PUSH (19:39)
[2024-11-11 19:45] VITALS: BP 121/76; PULSE 70; RESP 18; O2SAT 100
--- NOTE | 2024-11-11 19:45 | PC.NURSE ---
patient medicated per order, see MAR. update provided. vss. RN monitoring. call light within reach.
--- NOTE | 2024-11-11 20:03 | PC.NURSE ---
Dr. Umana at patient bedside for update.
[2024-11-11 20:45] VITALS: TEMP 36.6
--- NOTE | 2024-11-14 12:09 | PC.NURSE ---
urine culture final reviewed, not indicative of uti.
== END 2024-11-11 20:46 | disposition home or self-care (01) ==
PROVIDERS: Emergency Medicine; Emergency Provider Preventive Medicine Aerospace Medicine; PCP Family Medicine
DX: N30.00 Acute cystitis without hematuria (principal); E87.6 Hypokalemia; R10.31 Right lower quadrant pain; Z87.891 Personal history of nicotine dependence; Z20.822 Contact with and (suspected) exposure to COVID-19
CPT/HCPCS: 36415; 74177; 80053; 81001; 81025; 83605; 83690; 85025; 85610; 85730; 87086; 87637; 96365; 96375; 99284; J0696; J1885; J2270; J2405; Q9967

== ENCOUNTER 2025-03-03 11:23 | Observation (INO) | payer SELFPAY ==
--- NOTE | ~2025-03-03 | CT_ITS ---
CT abdomen pelvis w con Ordering provider: Lori Dominguez MD History: 29 years Female with . abdominal pain . Comparison: November 11, 2024 Technique: CT abdomen and pelvis with IV and without oral contrast. Automated exposure control and it erative reconstruction technique were employed. The dose-length product was 845.43 mGy-cm. 100 mL Omn ipaque 350 was given IV. Findings: VISUALIZED LOWER CHEST: Normal. UPPER ABDOMINAL ORGANS: Liver: Normal. Gallbladder: Normal. Spleen: Normal. Stomach/duodenum: Normal. Pancreas: Normal. Adrenals: Normal. Kidneys: Normal. PELVIC ORGANS: The bladder is under filled with thickened wall. IUD is unchanged in position. BOWEL AND MESENTERY: Colon: No evidence of diverticulitis. Fluid is seen in the large bowel which may indicate diarrhea ve rsus enteritis.. Clinical correlation advised. Normal appendix. Small Bowel: Normal. No obstruction. Peritoneum/mesentery: No free air or free fluid. No mesenteric lymphadenopathy. RETROPERITONEUM: Normal aorta. No retroperitoneal lymphadenopathy. MUSCULOSKELETAL: Superficial soft tissues: The superficial soft tissues are normal. Bones: Normal spine. IMPRESSION: 1. No evidence of appendicitis, diverticulitis or intestinal obstruction. 2. Fluid in the large bowel which may indicate enteritis versus diarrhea. Clinical correlation advis ed. Reviewed, dictated and finalized at location A. IMPRESSION: 1. No evidence of appendicitis, diverticulitis or intestinal obstruction. 2. Fluid in the large bowel which may indicate enteritis versus diarrhea. Clin ical correlation advised.
[2025-03-03 11:25] VITALS: BP 120/67; PULSE 72; RESP 16; TEMP 36.8; O2SAT 98
--- NOTE | 2025-03-03 11:32 | ED_ITS ---
HPI - Nausea/Vomiting/Diarrhea General Chief complaint: Nausea/Vomiting/Diarrhea Stated complaint: vomiting & loose stools Time Seen by Provider: 03/03/25 11:32 Source: patient Mode of arrival: ambulatory Limitations: no limitations History of Present Illness HPI Narrative: 29 years old white female came to the ED by private car complaining of nausea, vomiting, diarrhea, fever, chills, abdominal cramps started 4 days ago. It lot of vomiting, a lot of diarrhea, worse with any eating or drinking. Patient denies sick contact. Patient is telling me that she been running fever up to 103. She denies any respiratory symptoms, chest pain, shortness of breath, coughing, sore throat, ear pain, nasal or postnasal discharge . Related Data Home Medications ?Medication ?Instructions ?Recorded ?Confirmed ?Last Taken ?Type etonogestrel 0.12 mg-ethinyl 1 vag ring vaginal DIRECTED 06/25/22 03/03/25 Unknown History estradiol 0.015 mg/24 hr vaginal ring (EluRyng) methylprednisolone 4 mg tablets in mg 03/03/25 Unknown History a dose pack Allergies Allergy/AdvReac Type Severity Reaction Status Date / Time fluconazole Allergy Unknown Unknown Verified 03/03/25 11:30 Review of Systems 2 Review of Systems: All systems reviewed & are unremarkable except as noted in HPI and below PMFSH Past Medical History Medical History Normal delivery at term Migraine Nephrolithiasis Surgical History Surgical History History of tonsillectomy and adenoidectomy Family History Family History Father Migraines Social History Social History Smoking status: Former smoker Tobacco type: e-cigarettes/vaping Alcohol intake: former Substance use: never Living arrangements: with family Gender identity (if verbalized by the patient): Female Spiritual care concerns: No Exam 2 Narrative: General appearance: Well-developed, well-nourished Skin: Normal color Head: Normocephalic, nontraumatic Eyes: Clear conjunctiva ENT: Oropharynx normal, ears normal, nose normal Neck: Supple, nontender Chest and respiratory: Airway patent, no respiratory distress, no accessory muscle use Heart: Regular rate/rhythm Abdomen: Soft, Diffuse tenderness, hyperactive bowel sound, no organomegaly Vascular: Normal peripheral pulses, normal capillary refill. Musculoskeletal: Normal range of motion, nontender back Neurologic: Alert and oriented ?3, MITER GRINDER OPERATOR is normal as tested, no gross motor deficit Course Vital Signs Vital signs: Vital Signs Temperature 36.8 C 03/03/25 11: Pulse Rate 72 03/03/25 11:25 Respiratory Rate 03/03/25 11:25 Blood Pressure 120/67 03/03/25 11:25 Pulse Oximetry 98 03/03/25 11:25 Oxygen Delivery Room Air 03/03/25 11:25 Temperature 36.8 C 03/03/25 11: Pulse Rate 72 03/03/25 11:25 Respiratory Rate 03/03/25 11:25 Blood Pressure 120/67 03/03/25 11:25 Pulse Oximetry 98 03/03/25 11:25 Oxygen Delivery Room Air 03/03/25 11:25 MDM - Nausea/Vomiting/Diarrhea MDM Narrative Medical decision making narrative: patient presents with nausea vomiting diarrhea abdominal cramps fever and chills Vital signs are stable Physical examination consistent with diffuse abdominal tenderness, hyperactive bowel sounds otherwise within normal limit Differential diagnosis include gastroenteritis, colitis, diverticulitis, dehydration, electrolyte imbalance. Blood workup today includes CBC, CMP, lipase showed NO SIGNIFICANT ABNORMALITIES Urinalysis showed 2+ LEUKOCYTE ESTRACE 2+ BLOOD CT abdomen and pelvis with IV contrast showed POSSIBLE ENTERITIS DIAGNOSIS GASTROENTERITIS ASYMPTOMATIC URINARY TRACT INFECTION patient was not able to keep fluid or crackers down. Admit to hospitalist for IV fluid, observation Differential Diagnosis Differential diagnosis: Likely other ( as above) Medical Records Attestation: I reviewed the patient's medical records. Lab Data Attestation: I reviewed the patient's lab results. 03/03/25 11:34 03/03/25 11:34 Labs: Lab Results 03/03/25 03/03/25 03/03/25 Range/Units 11:32 11:34 11:45 WBC 5.4 (4.8-10.8) K/mm3 RBC 4.68 (4.20-5.40) M/mm3 Hgb 13.8 (12.0-15.0) g/dL Hct 42.3 (35.0-49.0) % MCV 90.4 (78.0-102.0) fL MCH 29.5 (27.0-31.0) pg MCHC 32.6 (32-36) g/dL RDW 12.0 (11.6-14.4) % Plt Count 289 (150-420) K/mm3 MPV 9.3 (9.2-11.8) fl Immature Gran % (Auto) 0.2 H (0.0-0.0) % Neut % (Auto) 54.9 (50.0-70.0) % Lymph % (Auto) 30.1 (18.0-42.0) % [place] % (Auto) 12.8 H (2.0-11.0) % Eos % (Auto) 1.3 (1.0-6.0) % Baso % (Auto) 0.7 (0.0-1.0) % Lymph # (Auto) 1.63 (1.10-4.50) K/mm3 [place] # (Auto) 0.69 (0.10-0.90) K/mm3 Eos # (Auto) 0.07 (0.02-0.50) K/mm3 Baso # (Auto) 0.04 (0.00-0.10) K/mm3 Abs Immat Gran (auto) 0.01 H (0.00-0.00) K/mm3 Absolute Neuts (auto) 2.97 (1.70-7.20) K/mm3 Absolute Nucleated RBC 0.00 (0.00-0.00) K/mm3 Nucleated RBC % 0.0 (0-0.0) % Sodium 141 (137-145) mmol/L Potassium 4.0 (3.4-5.0) mmol/L Chloride 110 H (98-107) mmol/L Carbon Dioxide 24 (22-30) mmol/L Anion Gap 7 (4-12) mmol/L BUN 7 (7-17) mg/dL Creatinine 0.63 L (0.7-1.0) mg/dL Estim Creat Clear Calc 148 ml/min Estimated GFR > 60 (59 - ) Glucose 89 (65-110) mg/dL Calculated Osmolality 289 (285-295) mOsm/kg Calcium 8.4 (8.4-10.2) mg/dL Total Bilirubin 0.5 (0.2-1.3) mg/dL AST 31 (14-36) U/L ALT 21 (6-35) U/L Alkaline Phosphatase 85 (38-126) U/L Total Protein 7.5 (6.3-8.2) g/dL Albumin 4.4 (3.5-5.1) g/dL Lipase 51 (23-300) U/L Urine Color Light yellow (Yellow) Urine Appearance Clear (Clear) Urine pH 6.0 (5.0-8.0) Ur Specific [place] 1.025 H (1.010-1.020) Urine Protein Trace H (Negative) Urine Glucose (UA) Negative (Negative) Urine Ketones Negative (Negative) Ur Blood (Man) 2+ H (Negative) Urine Nitrate Negative (Negative) Urine Bilirubin Negative (Negative) Urine Urobilinogen 0.2 (0.2-1.0) mg/dL Leukocyte Esterase Rfl 2+ H (Negative) MONIQUE/UL Urine RBC None seen (0-2) /hpf Urine WBC 0-3 (0-3) /hpf Ur Squamous Epith Cells Moderate H (Few) /hpf Urine Bacteria Trace (None) /hpf Urine Test Influenza A (RT-PCR) Negative (Negative) Influenza B (RT-PCR) Negative (Negative) RSV (RT-PCR) Negative (Negative) SARS-CoV-2 RNA (RT-PCR) Negative (Negative) 03/03/25 Range/Units 12:39 WBC (4.8-10.8) K/mm3 RBC (4.20-5.40) M/mm3 Hgb (12.0-15.0) g/dL Hct (35.0-49.0) % MCV (78.0-102.0) fL MCH (27.0-31.0) pg MCHC (32-36) g/dL RDW (11.6-14.4) % Plt Count (150-420) K/mm3 MPV (9.2-11.8) fl Immature Gran % (Auto) (0.0-0.0) % Neut % (Auto) (50.0-70.0) % Lymph % (Auto) (18.0-42.0) % [place] % (Auto) (2.0-11.0) % Eos % (Auto) (1.0-6.0) % Baso % (Auto) (0.0-1.0) % Lymph # (Auto) (1.10-4.50) K/mm3 [place] # (Auto) (0.10-0.90) K/mm3 Eos # (Auto) (0.02-0.50) K/mm3 Baso # (Auto) (0.00-0.10) K/mm3 Abs Immat Gran (auto) (0.00-0.00) K/mm3 Absolute Neuts (auto) (1.70-7.20) K/mm3 Absolute Nucleated RBC (0.00-0.00) K/mm3 Nucleated RBC % (0-0.0) % Sodium (137-145) mmol/L Potassium (3.4-5.0) mmol/L Chloride (98-107) mmol/L Carbon Dioxide (22-30) mmol/L Anion Gap (4-12) mmol/L BUN (7-17) mg/dL Creatinine (0.7-1.0) mg/dL Estim Creat Clear Calc ml/min Estimated GFR (59 - ) Glucose (65-110) mg/dL Calculated Osmolality (285-295) mOsm/kg Calcium (8.4-10.2) mg/dL Total Bilirubin (0.2-1.3) mg/dL AST (14-36) U/L ALT (6-35) U/L Alkaline Phosphatase (38-126) U/L Total Protein (6.3-8.2) g/dL Albumin (3.5-5.1) g/dL Lipase (23-300) U/L Urine Color (Yellow) Urine Appearance (Clear) Urine pH (5.0-8.0) Ur Specific [place] (1.010-1.020) Urine Protein (Negative) Urine Glucose (UA) (Negative) Urine Ketones (Negative) Ur Blood (Man) (Negative) Urine Nitrate (Negative) Urine Bilirubin (Negative) Urine Urobilinogen (0.2-1.0) mg/dL Leukocyte Esterase Rfl (Negative) MONIQUE/UL Urine RBC (0-2) /hpf Urine WBC (0-3) /hpf Ur Squamous Epith Cells (Few) /hpf Urine Bacteria (None) /hpf Urine Test Negative Influenza A (RT-PCR) (Negative) Influenza B (RT-PCR) (Negative) RSV (RT-PCR) (Negative) SARS-CoV-2 RNA (RT-PCR) (Negative) Imaging Data Radiologist's impression: Impressions Abdomen/Pelvis CT 03/03/25 14:05 IMPRESSION: 1. No evidence of appendicitis, diverticulitis or intestinal obstruction. 2. Fluid in the large bowel which may indicate enteritis versus diarrhea. Clinical correlation advised. Critical Care Time Critical Care Time Critical Care Time: No Discharge Plan Discharge Clinical Impression: Gastroenteritis Patient Disposition: Still a Patient Condition: Stable Patient Language: Tongan Prescriptions: New ondansetron 4 mg tablet,disintegrating 4 mg PO Q4H PRN (Reason: nausea and vomiting) 3 Days Qty: 10 0RF No Action etonogestrel-ethinyl estradiol [EluRyng] 0.12-0.015 mg/24 hr ring 1 vag ring VAGINAL DIRECTED methylprednisolone 4 mg tablets,dose pack
[2025-03-03 11:46] LABS: Basophils Absolute Auto 0.04 K/mm3 (0.00-0.10); Basophils Percent Auto 0.7 % (0.0-1.0); Eosinophils Absolute Auto 0.07 K/mm3 (0.02-0.50); Eosinophils Percent Auto 1.3 % (1.0-6.0); Hematocrit 42.3 % (35.0-49.0); Hemoglobin 13.8 g/dL (12.0-15.0); Immature Granulocyte Absolute 0.01 K/mm3 (0.00-0.00); Immature Granulocyte Percent A 0.2 % (0.0-0.0); Lymphocytes Absolute Auto 1.63 K/mm3 (1.10-4.50); Lymphocytes Percent Auto 30.1 % (18.0-42.0); Mean Corpuscular HGB Conc 32.6 g/dL (32-36); Mean Corpuscular Hemoglobin 29.5 pg (27.0-31.0); Mean Corpuscular Volume 90.4 fL (78.0-102.0); Mean Platelet Volume 9.3 fl (9.2-11.8); Monocytes Absolute Auto 0.69 K/mm3 (0.10-0.90); Monocytes Percent Auto 12.8 % (2.0-11.0); Neutrophils Absolute Auto 2.97 K/mm3 (1.70-7.20); Neutrophils Percent Auto 54.9 % (50.0-70.0); Platelet Count Result 289 K/mm3 (150-420); Red Blood Count 4.68 M/mm3 (4.20-5.40); White Blood Count 5.4 K/mm3 (4.8-10.8)
[2025-03-03] MEDS: SODIUM CHLORIDE 0.9% IV 2,000 ML 999 ML IV CONT (11:47)
[2025-03-03] MEDS: ONDANSETRON INJ 4 MG/2 ML VIAL 8 MG IV PUSH (11:47)
--- NOTE | 2025-03-03 11:48 | PC.NURSE ---
Covid Culture sent to lab
[2025-03-03 11:58] LABS: Add Urine Microscopic? YES; Appearance Urine Clear (Clear); Bilirubin Urine Negative (Negative); Blood Urine 2+ (Negative); Color Urine Light Yellow (Yellow); Glucose Urine UA Negative (Negative); Ketones Urine Negative (Negative); Leukocyte Esterase Ur 2+ LEU/UL (Negative); Nitrate Urine Negative (Negative); Protein Urine Trace (Negative); Specific Grav Ur 1.025 (1.010-1.020); Urobilinogen Urine 0.2 mg/dL (0.2-1.0)
[2025-03-03 12:00] LABS: Alanine Aminotransferase 21 U/L (6-35); Albumin Level 4.4 g/dL (3.5-5.1); Alkaline Phosphatase 85 U/L (38-126); Anion Gap 7 mmol/L (4-12); Aspartate Amino Transferase 31 U/L (14-36); Bilirubin,Total 0.5 mg/dL (0.2-1.3); Blood Urea Nitrogen 7 mg/dL (7-17); Calcium 8.4 mg/dL (8.4-10.2); Carbon Dioxide 24 mmol/L (22-30); Chloride 110 mmol/L (98-107); Estimated CRCL calculation 148 ml/min; Estimated Glomerular Filt Rate > 60; Glucose 89 mg/dL (65-110); Lipase 51 U/L (23-300); Osmolality Calculated 289 mOsm/kg (285-295); Sodium 141 mmol/L (137-145); Total Protein 7.5 g/dL (6.3-8.2)
[2025-03-03 12:01] LABS: Bacteria Urine Trace /hpf; RBC Urine None seen /hpf (0-2); Squamous Epithelial Cell Urine Moderate /hpf (Few); WBC Urine 0-3 /hpf (0-3)
[2025-03-03 12:26] LABS: Influenza A QL RT-PCR Negative (Negative); Influenza B QL RT-PCR Negative (Negative); RSV RNA, RT-PCR Negative (Negative); SARS-CoV-2 RNA PCR Negative (Negative)
--- OUTSIDE RECORDS SUMMARY | 2025-03-03 12:42 | XMS_ITS | Clinical Summary ---
Author Organization [facility] Address Formerly [facility], [id number] [place] [address] Care Team Providers Care Product Safety Test Engineer Name Role Phone Amina Call MD Primary Care Provider [phone] Allergies Active Allergy Reactions Criticality Noted Date [...] as needed. 60 tablet 1 4 Active Active Problems Problem Noted Date Diagnosed Date Chondromalacia, knee, right 04/03/2024 Patellofemoral pain syndrome of right knee 04/03 Patellar subluxation, right, initial encounter 0 03/20/2024 Patellar instability of right knee 03/20/2024 Encounters Date Type Department Care Team Description 12/23/2024 Telephone [place] [id number] Latesha Allen, HELP DESK SUPERVISOR-BC Question (Regarding work comp) 12/04/[address] [address] Vasu Kothari MD Work Comp (Paperwork needed for WC) from Last 3 Months Family History Medical [...] 104.3 kg (230 lb) 08/07/2024 2:27 PM LATHE TURNER Height 180.3 cm (5' 11) 08/07/2024 2:27 PM LATHE TURNER Body Mass Index 32.08 08/07/2024 2:27 PM LATHE TURNER Plan of Treatment Health Maintenance Due Date [...] history exists COVID-19 Vaccine ( season) 2024 HPV Vaccines Completed 11/19/2008, 07/19, 05/21/2008 Meningococcal Vaccine Completed 01/14/2015, 008 Meningococcal B Vaccine Aged Out No l onger eligible based on patient's age to complete this topic Pneumococcal Vaccine: Pediatrics (0 to 5 Years) and At-Risk Patients (6 to 49 Years) Aged Out No longer eligible based on patient's age to complete this topic RSV Immunizations Under 20 Months Aged Out No longer eligible based on patient's age to complete this topic Insurance [facility] [facility] Care Teams Product Safety Test Engineer Relationship Specialty Start Date End Date Amina Call MD [address] [place] [phone] PCP - General FAMILY PRACTICE 03/12/24
--- OUTSIDE RECORDS SUMMARY | 2025-03-03 12:42 | XMS_ITS | Clinical Summary ---
Author Organization [facility] Address [address] [place] [address] Care Team Providers Care Hand Touch Up Painter Name Role Phone Mati Vaughn MD Primary Care Provider [phone] Source Comments [facility],non-owned Affiliates and Associated Physician Practices is amultiple site organization consisting of ambulatory clinics and hospital sitesin [place], [place], [place] and [place]. This disclosure is being madepursuant to the Care Everywhere program and may not contain all information available regarding this patient. Last updated 18.[facility] [employer] Allergies No known active allergies Medications * Be aware that medications may not be up to date on this document. Alwaysverify current medications with the patient. MedroxyPROGESTER one Acetate (DEPO-PROVERA IM) Inject into muscle. 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 Gender Identity Not on file Sexual Orientation Not on file Last Filed Vital Signs Vital Sign Reading Time Taken Comments Blood Pressure 120/58 07/09/2013 12:58 PM CDT Pulse - - Temperature - - Respiratory Rate - - Oxygen Saturation - - Inhaled Oxygen Concentration - - Weight 83.6 kg (184 lb 6.4 oz) 07/09/2013 12:58 PM CDT Height 178.1 cm (5' 10.12) 07/09/2013 12:58 PM CDT Body Mass Index 26.37 07/09/2013 12:58 PM CDT Plan of Treatment Health Maintenance Due Date Last Done Comments HIV SCREENING 2011 HEPATITIS C SCREENING 08/12/2014 DTAP/TDAP/TD VACCINES (1 - Tdap) 2015 HEPATITIS B VACCINE (1 of 3 - 19+ 3-dose series) 2015 COVID-19 VACCINE (1 - 2023-2 5 season) 2024 DEPRESSION SCREENING 09/18/2024 INFLUENZA VACCINE (Season Ended) 2025 07/09/20 13 ZOSTER VACCINE (1 of 2) 2046 HIB VACCINE Aged Out No longer eligi ble based on patient's age to complete this topic HPV VACCINE Aged Out No longer eligi ble based on patient's age to complete this topic MENINGOCOCCAL (Group B) VACC INE SHARED DECISION-MAKING Aged Out No longer eligibl e based on patient's age to complete this topic MENINGOCOCCAL GROUPS A/C/Y/W VACCINE Aged Out No longer eligible b ased on patient's age to complete this topic PNEUMOCOCCAL VACCINE Aged Out No long er eligible based on patient's age to complete this topic Insurance MEDICAID - [place] Care Teams Hand Touch Up Painter Relationship Specialty Start Date End Date Mati Vaughn MD [address] [place] [address] PCP - General Family Medicine 07/09/13
[2025-03-03 12:56] LABS: Pregnancy On Board Control Positive; Urine Pregnancy Test Negative
--- OUTSIDE RECORDS SUMMARY | 2025-03-03 13:12 | XMS_ITS | Clinical Summary ---
Author Organization [facility] Address [address] [place] [address] Care Team Providers Care Auction Block Clerk Name Role Phone Mati Vaughn MD Primary Care Provider [phone] Source Comments [facility],non-owned Affiliates and Associated Physician Practices is amultiple site organization consisting of ambulatory clinics and hospital sitesin [place], [place], [place] and [place]. This disclosure is being madepursuant to the Care Everywhere program and may not contain all information available regarding this patient. 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
[2025-03-03 13:30] VITALS: BP 118/72; PULSE 70; RESP 18; O2SAT 99
[2025-03-03 15:27] VITALS: BMI 31.0
[2025-03-03 15:30] VITALS: BP 114/63; BP 121/69; PULSE 69; RESP 18; RESP 20; TEMP 36.6; O2SAT 99
[2025-03-03] MEDS: SODIUM CHLORIDE 0.9% IV 1,000 ML 150 ML IV CONT (15:51)
--- NOTE | 2025-03-03 16:06 | ADMGEN ---
This patient, Manuela Kwon, was admitted to 2nd Floor Room 205-2 for vomiting and diarrhea since Monday. Patient/family oriented to hospital policies and general routines including ID bracelet, bed and alarms, visiting hours, pain management, procedures, bathroom and other care routines, personal items, smoking policy, hours of meals, diet, and visiting hours. Information on how to activate the Rapid Response Team has been discussed. Patient/Family are encouraged to report perceived risks to care and to ask questions if they do not understand what they are told or what they should do.
[2025-03-03] MEDS: ONDANSETRON INJ 4 MG/2 ML VIAL IV PUSH (16:54)
[2025-03-03] MEDS: LOPERAMIDE HCL 2 MG CAPSULE 4 MG PO (17:53)
[2025-03-03 20:00] VITALS: PULSE 69; RESP 18; O2SAT 99
[2025-03-03] MEDS: PROMETHAZINE HCL 25 MG/ML AMPUL 12.5 MG IV PUSH (21:05)
[2025-03-04] VITALS: BP 111/51; PULSE 54; RESP 17; TEMP 36.3; O2SAT 99
[2025-03-04] MEDS: SODIUM CHLORIDE 0.9% IV 1,000 ML 100 ML IV CONT (01:45)
[2025-03-04 05:46] LABS: Basophils Absolute Auto 0.04 K/mm3 (0.00-0.10); Basophils Percent Auto 0.9 % (0.0-1.0); Eosinophils Absolute Auto 0.07 K/mm3 (0.02-0.50); Eosinophils Percent Auto 1.5 % (1.0-6.0); Hematocrit 33.9 % (35.0-49.0); Hemoglobin 11.1 g/dL (12.0-15.0); Immature Granulocyte Absolute 0.01 K/mm3 (0.00-0.00); Immature Granulocyte Percent A 0.2 % (0.0-0.0); Mean Corpuscular HGB Conc 32.7 g/dL (32-36); Mean Corpuscular Hemoglobin 30.2 pg (27.0-31.0); Mean Corpuscular Volume 92.4 fL (78.0-102.0); Mean Platelet Volume 9.3 fl (9.2-11.8); Monocytes Absolute Auto 0.51 K/mm3 (0.10-0.90); Monocytes Percent Auto 11.3 % (2.0-11.0); Neutrophils Absolute Auto 1.99 K/mm3 (1.70-7.20); Neutrophils Percent Auto 44.1 % (50.0-70.0); Platelet Count Result 201 K/mm3 (150-420); Red Blood Count 3.67 M/mm3 (4.20-5.40); Red Cell Distribution Width 12.2 % (11.6-14.4); White Blood Count 4.5 K/mm3 (4.8-10.8)
[2025-03-04 05:59] LABS: Alanine Aminotransferase 17 U/L (6-35); Albumin Level 3.2 g/dL (3.5-5.1); Alkaline Phosphatase 62 U/L (38-126); Anion Gap 1 mmol/L (4-12); Aspartate Amino Transferase 22 U/L (14-36); Bilirubin,Total 0.4 mg/dL (0.2-1.3); Blood Urea Nitrogen 5 mg/dL (7-17); Calcium 7.7 mg/dL (8.4-10.2); Carbon Dioxide 27 mmol/L (22-30); Chloride 113 mmol/L (98-107); Estimated CRCL calculation 139 ml/min; Estimated Glomerular Filt Rate > 60; Glucose 81 mg/dL (65-110); Magnesium 1.9 mg/dL (1.6-2.3); Osmolality Calculated 288 mOsm/kg (285-295); Potassium 3.5 mmol/L (3.4-5.0); Sodium 141 mmol/L (137-145); Total Protein 5.6 g/dL (6.3-8.2)
[2025-03-04 07:50] VITALS: BP 103/54; PULSE 62; RESP 16; TEMP 36.6; O2SAT 98
--- NOTE | 2025-03-04 08:37 | P.HP_ITS ---
H&P: HPI History of Present Illness Date/Time: 03/04/25 08:37 Chief Complaint: Nausea, vomiting and diarrhea Narrative: 29-year-old female with migraines, nephrolithiasis and adult ADHD who presents to the emergency room complaints of nausea, vomiting and diarrhea. About 4 days prior to admission, patient stated that she did not eat much during the day but then went to [employer] and had a fatty meal. A short time later, she developed diffuse abdominal pain and, that evening, developed nausea, vomiting and diarrhea. Over the next few days her symptoms persisted. She developed fever to 103.4?. No sick contacts. No recent travel. She has city water. No melena, hematochezia or hematemesis. She has been taking Tylenol and ibuprofen as well as an ice bath for the fevers and pain. She has noted decreasing urine output due to the persistent diarrhea. No headaches, vision changes, shortness of breath, chest pain, dysuria or hematuria. The abdominal pain is diffuse. No new medications. She presented to the emergency room for evaluation. In the emergency room, she was hemodynamically stable. CBC was normal. CMP was essentially normal. Lipase was normal. Urine test was negative. UA showed minor findings but overall not felt to be consistent with UTI. Influenza, RSV and COVID PCR were negative. CT of the abdomen and pelvis with and without contrast showed fluid in the large bowel indicating enteritis versus diarrhea. No other acute findings. She was given Zofran, 2 L of IV fluid and 1 dose of Imodium. She was admitted for further care. Overnight, patient slept well. Her diarrhea has resolved. She still has abdominal pain with the clear liquid diet. Review of Systems Review of Systems: All systems reviewed & are unremarkable except as noted in HPI and below PMFSH Past Medical History Medical History Adult ADHD Normal delivery at term Migraine Nephrolithiasis Surgical History Surgical History H/O knee surgery right History of tonsillectomy and adenoidectomy Family History Family History Father Migraines Social History Social History (Updated 03/04/25 @ 08:46 by Cabrera Coronado MD) Social History: No alcohol or drug use. She used to vape but no longer does so. She lives at home with her son. She is a full code. She nominates her mother to be her surrogate decision maker if she is unable. Smoking status: Never smoker Tobacco type: e-cigarettes/vaping Second hand tobacco smoke exposure: No Alcohol intake: never Substance use: never Substance use type: does not use Do You Feel Safe in your Home?: Yes Lack of Transportation: No Lack of Food: Never True Current Housing: I Have Housing Concerned About Future Housing: No Difficulty Paying Gas/Electric Bills: No Difficulty Paying for Meds: No Currently Unemployed: No Education: High School Diploma/GED Difficulty w/ Childcare or Family Care: No Living arrangements: with family Gender identity (if verbalized by the patient): Female Spiritual care concerns: No Meds Home Medications and Allergies Home Medications ?Medication ?Instructions ?Recorded ?Confirmed ?Type etonogestrel 0.12 mg-ethinyl 1 vag ring vaginal DIRECTED 06/25/22 03/03/25 History estradiol 0.015 mg/24 hr vaginal ring (EluRyng) methylphenidate HCl 18 mg 18 mg PO QAM 03/03/25 03/03/25 History tablet,extended release 24 hr (Concerta) ondansetron 4 mg disintegrating 4 mg PO Q4H PRN nausea and 03/03/25 Rx tablet vomiting 3 days #10 tabs Allergies Allergy/AdvReac Type Severity Reaction Status Date / Time fluconazole Allergy Unknown Unknown Verified 03/03/25 11:30 Vital Signs Vital Signs - 24 hr 03/03/25 11:25 03/03/25 13:30 03/03/25 15:30 Temperature 98.3 F Pulse Rate 72 70 69 Respiratory Rate 16 18 20 Blood Pressure 120/67 118/72 121/69 Pulse Oximetry 98 99 99 Oxygen Delivery Room Air Room Air Room Air 03/03/25 15:30 03/03/25 20:00 03/04/25 00:00 Temperature 97.8 F 97.3 F L Pulse Rate 69 69 54 L Respiratory Rate 18 18 17 Blood Pressure 114/63 111/51 L Pulse Oximetry 99 99 99 Oxygen Delivery Room Air Room Air Room Air 03/04/25 07:50 Temperature 97.8 F Pulse Rate 62 Respiratory Rate 16 Blood Pressure 103/54 L Pulse Oximetry 98 Oxygen Delivery Room Air Exam Narrative: AF 97.8 103/54 62 16 98% ra Gen - well appearing female in no acute respiratory distress who is nontoxic- appearing lying semi recumbent in bed HEENT - normocephalic. Atraumatic. Pupils equal round and reactive. Extraocular motions intact. Sclera clear and anicteric. Nares patent. Oropharynx was clear. No oral lesions. Moist mucous membranes. Tongue was midline. Palate jesse symmetrically. No facial asymmetry. Neck - neck was supple. No dominant adenopathy, thyromegaly or masses. Chest - lungs are clear to auscultation bilaterally. No wheezes or crackles. Breast exam was deferred. CV - heart was regular rate and rhythm. S1-S2. No murmurs gallops or rubs. Abd - abdomen was soft. Nondistended. Positive bowel sounds. No organomegaly or masses. Mild lower abdominal pain left>right without guarding or rebound. Ext - no clubbing, cyanosis or edema. 2+ DP pulses bilaterally. Neuro - patient is alert and oriented. Strength is 5/5 in both upper and lower extremities. Cranial nerves 2-12 are intact. Speech is clear. Psych - normal mood and affect. Patient is pleasant and cooperative. Skin - warm and dry. No rashes noted. H&P: Results Labs Labs: Short CBC 03/03/25 03/04/25 Range/Units 11:34 05:37 WBC 5.4 4.5 L (4.8-10.8) K/mm3 Hgb 13.8 11.1 L (12.0-15.0) g/dL Hct 42.3 33.9 L (35.0-49.0) % Plt Count 289 201 (150-420) K/mm3 BMP 03/03/25 03/04/25 11:34 05:37 Sodium 141 141 Potassium 4.0 3.5 Chloride 110 H 113 H Carbon Dioxide 24 27 BUN 7 5 L Creatinine 0.63 L 0.68 L Glucose 89 81 Calcium 8.4 7.7 L Liver Function 03/03/25 03/04/25 Range/Units 11:34 05:37 Total Bilirubin 0.5 0.4 (0.2-1.3) mg/dL AST 31 22 (14-36) U/L ALT 21 17 (6-35) U/L Alkaline Phosphatase 85 62 (38-126) U/L Albumin 4.4 3.2 L (3.5-5.1) g/dL Urine 03/03/25 Range/Units 11:32 Urine Color Light yellow (Yellow) Urine Appearance Clear (Clear) Urine pH 6.0 (5.0-8.0) Ur Specific [place] 1.025 H (1.010-1.020) Urine Protein Trace H (Negative) Urine Glucose (UA) Negative (Negative) Assessment and Plan Assessment and plan (1) Gastroenteritis: Code(s): K52.9 - Noninfective gastroenteritis and colitis, unspecified Status: Acute Assessment and Plan: Patient presents with nausea, vomiting and diarrhea With associated fevers. The fevers documented here since admission. Diarrhea has improved since the 1 dose of Imodium. Will hold further doses of Imodium since would be beneficial for her to expel the virus. Will continue to have antiemetics available as needed. We will continue IV fluids for today until she is tolerating oral intake on a regular basis. Continue to monitor for red flag signs. will start her on a regular diet and I advised patient to pick items that are bland but that she may choose foods that she feels she can tolerate. (2) Abdominal pain: Code(s): R10.9 - Unspecified abdominal pain Status: Acute Assessment and Plan: As above Plan DVT Prophylaxis - SCDs Code status - Full
[2025-03-04 08:50] VITALS: PULSE 62; RESP 16; O2SAT 98
[2025-03-04] MEDS: PROMETHAZINE HCL 25 MG/ML AMPUL 12.5 MG IV PUSH (09:19)
[2025-03-04] MEDS: SODIUM CHLORIDE 0.9% IV 1,000 ML 75 ML IV CONT (12:45)
[2025-03-04] MEDS: ACETAMINOPHEN 325 MG TABLET 650 MG PO ×2 (12:46→21:37)
[2025-03-04 16:30] VITALS: BP 104/48; PULSE 71; RESP 18; TEMP 36.6; O2SAT 97
[2025-03-04 20:00] VITALS: PULSE 71; RESP 18; O2SAT 97
[2025-03-05] VITALS: BP 114/62; PULSE 72; RESP 18; TEMP 36.8; O2SAT 99
[2025-03-05] MEDS: SODIUM CHLORIDE 0.9% IV 1,000 ML 75 ML IV CONT (02:00)
[2025-03-05 05:34] LABS: Basophils Absolute Auto 0.03 K/mm3 (0.00-0.10); Basophils Percent Auto 0.5 % (0.0-1.0); Eosinophils Absolute Auto 0.07 K/mm3 (0.02-0.50); Eosinophils Percent Auto 1.1 % (1.0-6.0); Hematocrit 34.2 % (35.0-49.0); Immature Granulocyte Absolute 0.02 K/mm3 (0.00-0.00); Immature Granulocyte Percent A 0.3 % (0.0-0.0); Lymphocytes Absolute Auto 2.05 K/mm3 (1.10-4.50); Lymphocytes Percent Auto 31.3 % (18.0-42.0); Mean Corpuscular HGB Conc 32.2 g/dL (32-36); Mean Corpuscular Hemoglobin 29.6 pg (27.0-31.0); Mean Corpuscular Volume 91.9 fL (78.0-102.0); Mean Platelet Volume 9.5 fl (9.2-11.8); Monocytes Absolute Auto 0.56 K/mm3 (0.10-0.90); Monocytes Percent Auto 8.5 % (2.0-11.0); Neutrophils Absolute Auto 3.82 K/mm3 (1.70-7.20); Neutrophils Percent Auto 58.3 % (50.0-70.0); Platelet Count Result 227 K/mm3 (150-420); Red Blood Count 3.72 M/mm3 (4.20-5.40); Red Cell Distribution Width 11.9 % (11.6-14.4); White Blood Count 6.6 K/mm3 (4.8-10.8)
[2025-03-05 05:58] LABS: Alanine Aminotransferase 17 U/L (6-35); Albumin Level 3.4 g/dL (3.5-5.1); Alkaline Phosphatase 63 U/L (38-126); Anion Gap 3 mmol/L (4-12); Aspartate Amino Transferase 20 U/L (14-36); Bilirubin,Total 0.5 mg/dL (0.2-1.3); Blood Urea Nitrogen 5 mg/dL (7-17); Calcium 7.9 mg/dL (8.4-10.2); Carbon Dioxide 27 mmol/L (22-30); Chloride 108 mmol/L (98-107); Estimated CRCL calculation 142 ml/min; Estimated Glomerular Filt Rate > 60; Glucose 85 mg/dL (65-110); Magnesium 1.9 mg/dL (1.6-2.3); Osmolality Calculated 282 mOsm/kg (285-295); Potassium 3.5 mmol/L (3.4-5.0); Sodium 138 mmol/L (137-145); Total Protein 5.8 g/dL (6.3-8.2)
[2025-03-05 08:00] VITALS: BP 96/57; PULSE 64; RESP 20; TEMP 36.4; O2SAT 98
--- NOTE | 2025-03-05 10:48 | P.DS_ITS ---
DS: Admitting Diagnosis Discharge Date 03/05/2025 Admitting Diagnosis gastroenteritis/ dehydration DS: Discharge Diagnosis Discharge Diagnosis (1) Gastroenteritis: Code(s): K52.9 - Noninfective gastroenteritis and colitis, unspecified Status: Acute (2) Abdominal pain: Code(s): R10.9 - Unspecified abdominal pain Status: Acute DS: Summary Hospital Course Reason for hospitalization: gastroenteritis/ dehydration/ nausea and vomiting/Diarrhea Hospital Course: Admission: Patient was a 29-year-old female with migraines, nephrolithiasis and adult ADHD who presents to the emergency room complaints of nausea, vomiting and diarrhea. About 4 days prior to admission, patient stated that she did not eat much during the day but then went to [employer] and had a fatty meal. A short time later, she developed diffuse abdominal pain and, that evening, developed nausea, vomiting and diarrhea. Over the next few days her symptoms persisted. She developed fever to 103.4?. No sick contacts. No recent travel. She has city water. No melena, hematochezia or hematemesis. She has been taking Tylenol and ibuprofen as well as an ice bath for the fevers and pain. She has noted decreasing urine output due to the persistent diarrhea. No headaches, vision changes, shortness of breath, chest pain, dysuria or hematuria. The abdominal pain is diffuse. No new medications. She presented to the emergency room for evaluation. In the emergency room, she was hemodynamically stable. CBC was normal. CMP was essentially normal. Lipase was normal. Urine test was negative. UA showed minor findings but overall not felt to be consistent with UTI. Infl uenza, RSV and COVID PCR were negative. CT of the abdomen and pelvis with and without contrast showed fluid in the large bowel indicating enteritis versus diarrhea. No other acute findings. She was given Zofran, 2 L of IV fluid and 1 dose of Imodium. She was admitted for further care. Hospital Course: Patient was admitted to the medical unit and continued on IV fluids and antiemetics she reported patient sleeping well and that her diarrhea had resolved. however patient continued to have complaints of abdominal pain with the clear liquid diet with nausea patient continues admission until tolerating oral intake and continued on IV fluids following day patient had tolerated a full diet reported diarrhea was resolving and minimal abdominal pain. labs reviewed and unremarkable all electrolytes were stable. vitals within normal range did have soft BP likely secondary to dehydration. patient was discharged home on Zofran as needed for nausea encouraged her not to use Imodium at this time to help expel viral infection and to continue to hydrate aggressively and to limit her caffeine intake until infectious process resolved. patient was discharged home Status at Discharge Functional status at discharge: independent ambulation Overall status at discharge: patient is back to baseline Time Spent with Patient Time attestation: Total time spent providing and/or coordinating discharge services: Time spent: Greater than 30 minutes Exam Const: General: comfortable and no acute distress HENMT: Ears: TM's normal bilaterally Face/Nose/Sinus: Normal nares present Mouth: Yes moist mucous membranes Eyes: General: appearance normal, both eyes and all related structures Sclera: sclerae normal Pupils: Equal, round and reactive pupils present Neck: Neck: supple and no JVD Resp: Effort & Inspection: normal respiratory effort Auscultation: clear to auscultation bilaterally Cardio: Rate: regular rate Rhythm: regular rhythm GI: GI Palp: Yes Soft to palpation Auscultation: normal bowel sounds Skin: General skin exam: normal color and no rashes or lesions noted Neuro: General: gait normal Motor exam (neuro): 5/5 motor strength present throughout Sensory Exam: normal sensation Extrem: General: normal to inspection Psych: Mental Status: mental status grossly normal Affect: normal affect DS: Data Data Completed and Pending Labs on day of discharge: Labs from last 24 hours 03/05/25 05:08 WBC 6.6 RBC 3.72 L Hgb 11.0 L Hct 34.2 L MCV 91.9 MCH 29.6 MCHC 32.2 RDW 11.9 Plt Count 227 MPV 9.5 Immature Gran % (Auto) 0.3 H Neut % (Auto) 58.3 Lymph % (Auto) 31.3 Hart % (Auto) 8.5 Eos % (Auto) 1.1 Baso % (Auto) 0.5 Lymph # (Auto) 2.05 Hart # (Auto) 0.56 Eos # (Auto) 0.07 Baso # (Auto) 0.03 Abs Immat Gran (auto) 0.02 H Absolute Neuts (auto) 3.82 Absolute Nucleated RBC 0.00 Nucleated RBC % 0.0 Sodium 138 Potassium 3.5 Chloride 108 H Carbon Dioxide 27 Anion Gap 3 L BUN 5 L Creatinine 0.66 L Estim Creat Clear Calc 142 Estimated GFR > 60 Glucose 85 Calculated Osmolality 282 L Calcium 7.9 L Magnesium 1.9 Total Bilirubin 0.5 AST 20 ALT 17 Alkaline Phosphatase 63 Total Protein 5.8 L Albumin 3.4 L Imaging Radiologist's impression: CT abdomen pelvis w con Ordering provider: Lori Dominguez MD History: 29 years Female with . abdominal pain . Comparison: November 11, 2024 Technique: CT abdomen and pelvis with IV and without oral contrast. Automated exposure control and iterative reconstruction technique were employed. The dose- length product was 845.43 mGy-cm. 100 mL Omnipaque 350 was given IV. Findings: VISUALIZED LOWER CHEST: Normal. UPPER ABDOMINAL ORGANS: Liver: Normal. Gallbladder: Normal. Spleen: Normal. Stomach/duodenum: Normal. Pancreas: Normal. Adrenals: Normal. Kidneys: Normal. PELVIC ORGANS: The bladder is under filled with thickened wall. IUD is unchanged in position. BOWEL AND MESENTERY: Colon: No evidence of diverticulitis. Fluid is seen in the large bowel which may indicate diarrhea versus enteritis.. Clinical correlation advised. Normal appendix. Small Bowel: Normal. No obstruction. Peritoneum/mesentery: No free air or free fluid. No mesenteric lymphadenopathy. RETROPERITONEUM: Normal aorta. No retroperitoneal lymphadenopathy. MUSCULOSKELETAL: Superficial soft tissues: The superficial soft tissues are normal. Bones: Normal spine. IMPRESSION: 1. No evidence of appendicitis, diverticulitis or intestinal obstruction. 2. Fluid in the large bowel which may indicate enteritis versus diarrhea. Clinical correlation advised. Discharge Plan Discharge Attending physician on discharge: Rosenda Choudhury Consulting providers: Bruna Pitts Discharging Clinician: Bruna Pitts Anticipated Discharge Date/Time: 03/05/25 10:44 Patient Disposition: Home Activity: may shower and as tolerated Diet: as tolerated and other - see discharge instructions Discharge Instructions: 1). Enteritis: * Continue with oral hydration recommend limiting caffeine * I have prescribed Zofran as needed which can be placed sublingual for any nausea * recommend bland diet during infectious process with small frequent meals as tolerated How can you care for yourself at home? ? Keep track of any new symptoms or changes in your symptoms. ? Rest until you feel better. ? Be safe with medicines. Take your medicines exactly as prescribed. Call your doctor if you think you are having a problem with your medicine. ? Do not drive after taking a prescription pain medicine. ? Ensure to follow-up with primary care physician as indicated and provide updated medication list provided to you at discharge. When should you call for help? Call 911 anytime you think you may need emergency care. For example, call if: ? You passed out (lost consciousness). Call your doctor now or seek immediate medical care if: ? You have new symptoms like fever, difficulty breathing, Chest pain, vomiting, or rash. ? You have new or different pain. ? You are confused and are having trouble thinking clearly. ? Your symptoms are getting worse. Watch closely for changes in your health, and be sure to contact your doctor if: ? You do not get better as expected. Patient Instructions: Antibiotic Form, Dehydration (DC), Gastroenteritis (DC), Enteritis (DC) Patient Language: Swazi Stand Alone Forms: General Discharge Information Follow-up/Referrals: Mati Vaughn MD [Primary Care Provider] - 4 Weeks Discharge Medications: New ondansetron 4 mg tablet,disintegrating 4 mg PO Q4H PRN (Reason: nausea and vomiting) 3 Days Qty: 10 0RF Continued etonogestrel-ethinyl estradiol [EluRyng] 0.12-0.015 mg/24 hr ring 1 vag ring VAGINAL DIRECTED methylphenidate HCl [Concerta] 18 mg tablet extended release 24hr 18 mg PO QAM Date of admission: 03/03/25 15:02 Primary Care Provider: Mati Vaughn Admitting Provider: Rosenda Choudhury Attending physician on admission: Rosenda Choudhury Condition: Stable Quality -Patient's previous records reviewed on admission -ER notes reviewed in detail on admission -discussed all findings and current treatment plan with patient/Family/POA -Consultations reviewed for recommendations -Patient's disposition for safe discharge discussed with field case manager Dictation performed by [employer] direct speech recognition software, therefore lathe tender variants and typographical errors may occur. Hospitalist MIPS Heart Failure (Exclusion) Patient has history of Heart Transplant or Left Ventricular Assistive Device?: No IF YES, STOP HERE Heart Failure (Qualifier) Patient has current or prior documentation of LVEF less than or equal to 40%, or mod/servere depressed LVSF?: No IF NO, STOP HERE
--- NOTE | 2025-03-05 11:30 | PC.NURSE ---
Discharge instructions reviewed with patient. Patient taken off floor per wheelchair
--- NOTE | 2025-03-06 09:27 | PC.NURSE ---
Discharge call back made. No answer on cell phone.
== END 2025-03-05 11:30 | disposition home or self-care (01) ==
LOC: CHSED 14:28 → CHS2ND 15:05
PROVIDERS: Nurse Practitioner; Admitting Provider Internal Medicine; Emergency Provider Emergency Medicine; PCP Family Medicine; Visit Provider Internal Medicine
DX: K52.9 Noninfective gastroenteritis and colitis, unspecified (principal); F90.9 Attention-deficit hyperactivity disorder, unspecified type; G43.909 Migraine, unspecified, not intractable, without status migrainosus; Z20.822 Contact with and (suspected) exposure to COVID-19; Z97.5 Presence of (intrauterine) contraceptive device; Z79.899 Other long term (current) drug therapy; Z87.442 Personal history of urinary calculi; Z87.891 Personal history of nicotine dependence
CPT/HCPCS: 36415; 74177; 80053; 81001; 81025; 83690; 83735; 85025; 87637; 96360; 96361; 96374; 96375; 96376; 99285; A9270; G0378; G0379; J2405; J2550; J7030; Q9967